=== PATIENT | male | born 1980 | race Caucasian/White ===

== ENCOUNTER 2016-07-21 10:09 | Emergency (ER) | payer OTHER ==
--- NOTE | 2016-07-21 10:30 | ED ---
General Adult HPI - General Chief complaint: Shortness of Breath Stated complaint: Anxiety Time Seen by Provider: 07/21/16 10:10 Source: patient, EMS, RN notes reviewed Mode of arrival: EMS - History of Present Illness Initial comments: This is a 36-year-old male with past medical history of panic attacks. Patient states his been out of his Xanax for the last 2 months. Patient states he has been having a difficult time keeping his anxiety under control lately. Patient states today he anxiety got best of him and he felt like he couldn't breathe so his father took him to the ambulance station and they brought him into the emergency department. Patient states he feels much better now but it felt as though he couldn't get a full breath and he began to panic even more. Patient denied any chest pain or palpitations. Patient denies any recent fever chills or cough. Patient denies any abdominal pain patient denies nausea vomiting diarrhea. Patient denies any headache patient denies numbness weakness per patient denies any lightheadedness dizziness and is bothersome. Patient states this is classic for his typical panic attacks - Related Data Home Medications Medication Instructions Recorded Confirmed ALPRAZolam [Xanax] 1 mg PO BID PRN 11/11/15 12/03/15 Cyclobenzaprine [Flexeril] 10 mg PO HS 11/11/15 12/03/15 oxyCODONE-APAP 10-325MG [Percocet 1 tab PO BID PRN 11/11/15 12/03/15 10-325 mg] Previous Rx's Medication Instructions Recorded Hydrocodone/Acetaminophen [[place] 1 each PO Q6HR PRN #20 tab 12/03/15 5-325] Sulfamethoxazole/Trimethoprim 1 each PO Q12H 14 Days 12/03/15 [Bactrim DS 800-160 mg] ALPRAZolam [Xanax] 0.5 mg PO DAILY PRN #14 07/21/16 Allergies Allergy/AdvReac Type Severity Reaction Status Date / Time No Known Allergies Allergy Verified 07/21/16 10:18 Review of Systems ROS Statement: Those systems with pertinent positive or pertinent negative responses have been documented in the HPI. ROS Other: All systems not noted in ROS Statement are negative. Past Medical History Past Medical History: No Reported History Additional Past Medical History / Comment(s): herniated disc History of Any Multi-Drug Resistant Organisms: MRSA Date of last positivie culture/infection: 12/03/15 MDRO Source:: BACK Additional Past Surgical History / Comment(s): left ankle pins & screws Past Psychological History: Anxiety, Depression Smoking Status: Current every day smoker Past Alcohol Use History: Daily, Occasional Past Drug Use History: Heroin, IV Drug Use General Exam - General Exam Comments Initial Comments: GENERAL: Patient is well-developed and well-nourished. Patient is nontoxic and well- hydrated and is in mild distress. ENT: Neck is soft and supple. No significant lymphadenopathy is noted. Oropharynx is clear. Moist mucous membranes. Neck has full range of motion without eliciting any pain. EYES: The sclera were anicteric and conjunctiva were pink and moist. Extraocular movements were intact and pupils were equal round and reactive to light. Eyelids were unremarkable. PULMONARY: Unlabored respirations. Good breath sounds bilaterally. No audible rales rhonchi or wheezing was noted. CARDIOVASCULAR: There is a regular rate and rhythm without any murmurs gallops or rubs. ABDOMEN: Soft and nontender with normal bowel sounds. SKIN: Skin is clear with no lesions or rashes and otherwise unremarkable. NEUROLOGIC: Patient is alert and oriented x3. Cranial nerves II through XII are grossly intact. Motor and sensory are also intact. Normal speech, volume and content. Symmetrical smile. MUSCULOSKELETAL: Normal extremities with adequate strength and full range of motion. LYMPHATICS: No significant lymphadenopathy is noted PSYCHIATRIC: Normal psychiatric evaluation. Normal interpersonal interactions appears functionally intact in deals appropriately with others. Patient is mildly anxious Course Vital Signs 07/21/16 07/21/16 10:13 10:18 Temperature 96.7 F L Pulse Rate 95 Respiratory 22 22 Rate Blood Pressure 118/68 O2 Sat by Pulse 97 Oximetry Disposition Clinical Impression: Anxiety Disposition: HOME SELF-CARE Condition: Good Instructions: Anxiety (ED) Prescriptions: ALPRAZolam [Xanax] 0.5 mg PO DAILY PRN #14 PRN Reason: Anxiety Referrals: Cm Salcido DO [Primary Care Provider] - 1-2 days Time of Disposition: 10:30
[2016-07-21] MEDS: ALPRAZolam 0.5 MG TAB PO STA (10:47)
[2016-07-21 10:53] VITALS: BP 118/72; PULSE 99; RESP 18; TEMP 96.9
== END 2016-07-21 10:53 | disposition home or self-care (01) ==
LOC: EC 10:09
DX: F41.9 Anxiety disorder, unspecified (principal); F41.0 Panic disorder [episodic paroxysmal anxiety]; R06.02 Shortness of breath; F32.9 Major depressive disorder, single episode, unspecified; F17.200 Nicotine dependence, unspecified, uncomplicated; Z79.899 Other long term (current) drug therapy
CPT/HCPCS: 99285

== ENCOUNTER 2016-08-11 10:15 | Emergency (ER) | payer OTHER ==
[2016-08-11 10:23] VITALS: BP 106/60; PULSE 86; RESP 20; TEMP 97.5
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
== END 2016-08-11 12:02 | disposition home or self-care (01) ==
LOC: EC 10:15
DX: F41.9 Anxiety disorder, unspecified (principal); F17.200 Nicotine dependence, unspecified, uncomplicated
CPT/HCPCS: 99283

== ENCOUNTER 2016-08-22 09:45 | Emergency (ER) | payer OTHER ==
[2016-08-22 09:55] VITALS: TEMP 98.1
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
[2016-08-22 12:04] VITALS: BP 117/63; PULSE 75; RESP 16
== END 2016-08-22 12:10 | disposition home or self-care (01) ==
LOC: EC 09:45
DX: S06.0X0A Concussion without loss of consciousness, initial encounter (principal); F17.200 Nicotine dependence, unspecified, uncomplicated; Y08.89XA Assault by other specified means, initial encounter
CPT/HCPCS: 70450; 72125; 99284

== ENCOUNTER → 2016-10-15 | Outpatient (CLI) | payer OTHER ==
--- NOTE | 2016-10-15 10:16 | MR ---
EXAMINATION TYPE: MR lumbar spine wo con DATE OF EXAM: 10/15/2016 COMPARISON: Prior MRI lumbar spine May 12, 2010 HISTORY: Lumbago per order. Extreme back pain with arthritis impinged nerves since 2006 per patient. TECHNIQUE: Multiplanar, multisequence imaging of the lumbar spine is performed without IV contrast. FINDINGS: Sagittal images of the lumbar spine show vertebral body heights and alignment to appear sat isfactory. There is redemonstration of disc desiccation with mild to moderate disc space narrowing L5 -S1 level. There is developing disc desiccation L3-L4 level. Posterior disc herniations are seen at t hese levels on sagittal images. The conus medullaris remains normal in position and signal ending at T12-L1 disc space. The bone marrow signal intensity shows heterogeneous increased T1 and T2 signal involving left L5-S1 vertebra consistent with Modic type II degenerative change new from prior study. Axial images show the T12-L1, L1-L2, and L2-L3 levels all to appear within normal limits. Axial images at the L3-L4 level shows central disc protrusion mildly effacing anterior thecal sac on axial image 18 more prominent or new from prior study. Bilateral neural foramina are patent. Axial images at L4-L5 level show mild facet degenerative changes bilaterally more prominent or new fr om prior exam. Spinal canal is preserved and bilateral neural foramina remain patent. Axial images at L5-S1 level shows central disc protrusion but spinal canal is preserved. Bilateral mi ld anterior inferior neural foraminal narrowing is redemonstrated. IMPRESSION: Multilevel degenerative changes in the mid to lower lumbar spine as detailed above with s ome progression from 2010 study noted.
== END | disposition home or self-care (01) ==
LOC: RADMRIMAIN 09:27
PROVIDERS: ATTEND Psychiatry & Neurology Pain Medicine
DX: M47.816 Spondylosis without myelopathy or radiculopathy, lumbar region (principal)
CPT/HCPCS: 72148

== ENCOUNTER 2016-12-04 18:40 | Inpatient (IN) | payer OTHER ==
[2016-12-04] MEDS ORDERED: PROPOFOL 1,000 MG/100 ML VIAL IV ONE (19:20)
[2016-12-04 19:31] LABS: Glucose,Whole Blood 88 mg/dL (75-99)
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
[2016-12-04] MEDS ORDERED: NALOXONE 0.4 MG/ML 1 ML VIAL IV STA ×2 (19:42→19:46)
[2016-12-04] MEDS ORDERED: SODIUM CHLORIDE 0.9% 1,000 ML IV STA (19:42)
[2016-12-04] MEDS ORDERED: SUCCINYLCHOLINE CHLORIDE VIAL 200 MG/10 ML VIAL IV STA (19:43)
[2016-12-04] MEDS ORDERED: ETOMIDATE 2 MG/ML 10 ML VIAL IVP STA (19:46)
[2016-12-04 20:07] LABS: Basophils # (A) 0.1 k/uL (0-0.2); Basophils % (A) 1 %; CH 31.3; CHCM 32.6; Eosinophils # (A) 0.2 k/uL (0-0.7); Eosinophils % (A) 2 %; HCT 43.4 % (39.0-53.0); HDW 2.55; HGB 14.5 gm/dL (13.0-17.5); Luc # (Auto) 0.29; Luc % (Auto) 4; Lymphocytes # (A) 2.8 k/uL (1.0-4.8); Lymphocytes % (A) 34 %; MCH 32.2 pg (25.0-35.0); MCHC 33.5 g/dL (31.0-37.0); MCV 96.4 fL (80.0-100.0); Mean Platelet Volume 7.2; Monocytes # (A) 0.5 k/uL (0-1.0); Monocytes % (A) 6 %; Neutrophils # (A) 4.5 k/uL (1.3-7.7); Neutrophils % (A) 54 %; RDW 13.4 % (11.5-15.5); WBC 8.3 k/uL (3.8-10.6)
[2016-12-04 20:12] LABS: ALT 40 U/L (21-72); AST 28 U/L (17-59); Acetaminophen <10.0 ug/mL; Alcohol <10 mg/dL; Alkaline Phosphatase 127 U/L (38-126); Anion Gap 11 mmol/L; Blood Urea Nitrogen 5 mg/dL (9-20); Calcium 9.1 mg/dL (8.4-10.2); Carbon Dioxide 21 mmol/L (22-30); Chloride 109 mmol/L (98-107); Glucose 85 mg/dL (74-99); Non-African American GFR(MDRD) >60 (>60 ml/min/1.73 sqM); Salicylate <1.0 mg/dL; Sodium 141 mmol/L (137-145); Total Bilirubin 0.8 mg/dL (0.2-1.3); Total Protein 6.9 g/dL (6.3-8.2)
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
[2016-12-04] MEDS ORDERED: NALOXONE 0.4 MG/ML 1 ML VIAL IV PRN (21:21)
--- NOTE | 2016-12-04 21:36 | ED ---
General Adult HPI - General Chief complaint: Overdose Stated complaint: unconscious in roadway Time Seen by Provider: 12/04/16 19:03 Source: EMS, RN notes reviewed Mode of arrival: EMS Limitations: altered mental status - History of Present Illness Initial comments: 36 yo male with known history of heroin abuse presents by EMS after being found in an alley unresponsive. Patient had minimal respirations on arrival, did receive a total 4 mg Narcan prior to transport. Patient had recent prescription filled for Percocet and benzodiazepine. It is unknown if he ingested these. Unknown total quantity of prescription. Patient was also found with a syringe. Upon arrival patient was given additional 2 mg Narcan followed by 4 mg of Narcan. Patient failed to improve his respiratory status. No other history was able to be obtained from either the patient or EMS. - Related Data Home Medications Medication Instructions Recorded Confirmed oxyCODONE HCL/ACETAMINOPHEN 1 tab PO TID PRN 08/11/16 12/04/16 [Percocet 10-325 mg] ALPRAZolam [Xanax] 1 mg PO BID 12/04/16 12/04/16 Pregabalin [Lyrica] 75 mg PO BID 12/04/16 12/04/16 Allergies Allergy/AdvReac Type Severity Reaction Status Date / Time No Known Allergies Allergy Verified 08/22/16 09:55 Review of Systems ROS Statement: Those systems with pertinent positive or pertinent negative responses have been documented in the HPI. Limitations: ROS unobtainable due to patients medical condition Past Medical History Past Medical History: No Reported History Additional Past Medical History / Comment(s): herniated disc History of Any Multi-Drug Resistant Organisms: MRSA Date of last positivie culture/infection: 12/03/15 MDRO Source:: BACK Additional Past Surgical History / Comment(s): left ankle pins & screws Past Psychological History: Anxiety, Depression Smoking Status: Current every day smoker Past Alcohol Use History: Occasional Past Drug Use History: Heroin, IV Drug Use General Exam - General Exam Comments Initial Comments: Initial examination: Patient was soaking wet, covered in sand and dirt, there was no external signs of trauma on the head or neck. He was placed in a c- collar for cervical precautions. Pupils were 2 mm and sluggish. Minimal spontaneous respirations, patient was assisted with bag valve mask. Bilateral breath sounds present, no rales no wheezing, abdomen was soft nondistended. Distal pulses intact. Limitations: altered mental status General appearance: in distress Head exam: Present: atraumatic, normocephalic Eye exam: Absent: scleral icterus, conjunctival injection Cardiovascular Exam: Present: regular rate, normal rhythm GI/Abdominal exam: Present: soft. Absent: distended Neurological exam: Present: other (Patient did not localize the pain, he withdrew to pain in all 4 extremities.) Course Vital Signs 12/04/16 12/04/16 12/04/16 18:44 19:00 19:39 Temperature 97.1 F L Pulse Rate 79 58 L Respiratory 6 L 10 L Rate Blood Pressure 133/97 137/92 O2 Sat by Pulse 92 L 100 Oximetry 12/04/16 12/04/16 12/04/16 20:04 21:01 21:22 Temperature 97.2 F L Pulse Rate 62 70 63 Respiratory Rate Blood Pressure 122/88 111/55 106/72 O2 Sat by Pulse Oximetry EKG Findings - EKG Comments: EKG Findings:: EKG shows normal sinus rhythm, ventricular rate of 61, W[place] interval 164, QS duration 92, QTC 453 Procedures - Intubation Time Out Performed: Yes Sedative: Etomidate Paralytic: Succinylcholine Laryngoscope: Jazmin Size: 4 ET Tube Size: 7.5 ET Tube Uncuffed: Yes Tube Secured Depth (cm): 23 Tube Placement Confirmation: visualized tube passing through cords, equal breath sounds bilaterally, no breath sounds over epigastrium, confirmation by capnometry Patient Tolerated Procedure: well, no complications Intubation Complications: none Medical Decision Making - Medical Decision Making 36 yo male presenting with concern for polysubstance overdose. Patient was given a total 10 mg of Narcan with no improvement in his respiratory status. He was intubated in the emergency department. Laboratory studies including CBC , CMP, Tylenol and aspirin levels as well as urine drug screen are significant only for urine drug screen positive cocaine, opiates, and benzodiazepines. Given the failure to respond to Narcan this is likely opiate and benzodiazepine overdose. Initial Tylenol level is nondetectable. Chest x-ray shows ET tube in appropriate location, head CT and cervical spine CT are negative. X-ray of the pelvis shows no fracture dislocation. Case is discussed with the pulmonary tin tie machine operator automatic. He will be admitted to the ICU. Diagnosis: Vent-dependent respiratory failure secondary to polysubstance overdose. - Lab Data Result diagrams: 12/04/16 19:45 12/04/16 19:45 Lab Results 12/04/16 12/04/16 12/04/16 Range/Units 19:16 19:28 19:45 WBC (3.8-10.6) k/uL RBC (4.30-5.90) m/uL Hgb (13.0-17.5) gm/dL Hct (39.0-53.0) % MCV (80.0-100.0) fL MCH (25.0-35.0) pg MCHC (31.0-37.0) g/dL RDW (11.5-15.5) % Plt Count (150-450) k/uL Neutrophils % % Lymphocytes % % Monocytes % % Eosinophils % % Basophils % % Neutrophils # (1.3-7.7) k/uL Lymphocytes # (1.0-4.8) k/uL Monocytes # (0-1.0) k/uL Eosinophils # (0-0.7) k/uL Basophils # (0-0.2) k/uL Sodium 141 (137-145) mmol/L Potassium 4.0 (3.5-5.1) mmol/L Chloride 109 H (98-107) mmol/L Carbon Dioxide 21 L (22-30) mmol/L Anion Gap 11 mmol/L BUN 5 L (9-20) mg/dL Creatinine 0.80 (0.66-1.25) mg/dL Est GFR (MDRD) Af Amer >60 (>60 ml/min/1.73 sqM) Est GFR (MDRD) Non-Af >60 (>60 ml/min/1.73 sqM) Glucose 85 (74-99) mg/dL POC Glucose (mg/dL) 88 (75-99) mg/dL POC Glu Diversity Manager ID Monse Antonio Plasma Lactic Acid Tim (0.7-2.0) mmol/L Calcium 9.1 (8.4-10.2) mg/dL Total Bilirubin 0.8 (0.2-1.3) mg/dL AST 28 (17-59) U/L ALT 40 (21-72) U/L Alkaline Phosphatase 127 H (38-126) U/L Total Protein 6.9 (6.3-8.2) g/dL Albumin 3.6 (3.5-5.0) g/dL Salicylates <1.0 mg/dL Urine Opiates Screen Detected H (NotDetected) Ur Oxycodone Screen Detected H (NotDetected) Urine Methadone Screen Not Detected (NotDetected) Ur Propoxyphene Screen Not Detected (NotDetected) Acetaminophen <10.0 ug/mL Ur Barbiturates Screen Not Detected (NotDetected) U Tricyclic Antidepress Not Detected (NotDetected) Ur Phencyclidine Scrn Not Detected (NotDetected) Ur Amphetamines Screen Not Detected (NotDetected) U Methamphetamines Scrn Not Detected (NotDetected) U Benzodiazepines Scrn Detected H (NotDetected) Urine Cocaine Screen Detected H (NotDetected) U Marijuana (THC) Screen Not Detected (NotDetected) Serum Alcohol <10 mg/dL 12/04/16 12/04/16 Range/Units 19:45 19:45 WBC 8.3 (3.8-10.6) k/uL RBC 4.50 (4.30-5.90) m/uL Hgb 14.5 (13.0-17.5) gm/dL Hct 43.4 (39.0-53.0) % MCV 96.4 (80.0-100.0) fL MCH 32.2 (25.0-35.0) pg MCHC 33.5 (31.0-37.0) g/dL RDW 13.4 (11.5-15.5) % Plt Count 263 (150-450) k/uL Neutrophils % 54 % Lymphocytes % 34 % Monocytes % 6 % Eosinophils % 2 % Basophils % 1 % Neutrophils # 4.5 (1.3-7.7) k/uL Lymphocytes # 2.8 (1.0-4.8) k/uL Monocytes # 0.5 (0-1.0) k/uL Eosinophils # 0.2 (0-0.7) k/uL Basophils # 0.1 (0-0.2) k/uL Sodium (137-145) mmol/L Potassium (3.5-5.1) mmol/L Chloride (98-107) mmol/L Carbon Dioxide (22-30) mmol/L Anion Gap mmol/L BUN (9-20) mg/dL Creatinine (0.66-1.25) mg/dL Est GFR (MDRD) Af Amer (>60 ml/min/1.73 sqM) Est GFR (MDRD) Non-Af (>60 ml/min/1.73 sqM) Glucose (74-99) mg/dL POC Glucose (mg/dL) (75-99) mg/dL POC Glu Diversity Manager ID Plasma Lactic Acid Tim 0.7 (0.7-2.0) mmol/L Calcium (8.4-10.2) mg/dL Total Bilirubin (0.2-1.3) mg/dL AST (17-59) U/L ALT (21-72) U/L Alkaline Phosphatase (38-126) U/L Total Protein (6.3-8.2) g/dL Albumin (3.5-5.0) g/dL Salicylates mg/dL Urine Opiates Screen (NotDetected) Ur Oxycodone Screen (NotDetected) Urine Methadone Screen (NotDetected) Ur Propoxyphene Screen (NotDetected) Acetaminophen ug/mL Ur Barbiturates Screen (NotDetected) U Tricyclic Antidepress (NotDetected) Ur Phencyclidine Scrn (NotDetected) Ur Amphetamines Screen (NotDetected) U Methamphetamines Scrn (NotDetected) U Benzodiazepines Scrn (NotDetected) Urine Cocaine Screen (NotDetected) U Marijuana (THC) Screen (NotDetected) Serum Alcohol mg/dL Critical Care Time Total Critical Care Time: 105 Disposition Clinical Impression: Benzodiazepine overdose, Heroin overdose, Respiratory failure Disposition: ADMITTED IP TO THIS [facility] Condition: Serious Referrals: None,Stated [Primary Care Provider] - 1-2 days Decision to Admit Reason: Admit from EC Decision Date: 12/04/16 Decision Time: 21:00
[2016-12-04 21:53] LABS: ABG Base Excess -2.6 mmol/L; ABG HCO3 20 mmol/L (21-25); ABG PCO2 28 mmHg (35-45); ABG PH 7.48 (7.35-7.45); ABG PO2 150 mmHg (83-108); ABG TCO2 21 mmol/L (19-24)
[2016-12-04 22:32] LABS: Glucose,Whole Blood 89 mg/dL (75-99)
[2016-12-05] MEDS: PROPOFOL 1,000 MG/100 ML VIAL IV SCH ×3 (00:40→09:48)
[2016-12-05] MEDS ORDERED: RX INFO: IV CONTRAST WAS GIVEN 1 EACH MISC MISCELLANE PRN (02:05)
[2016-12-05 02:08] LABS: Glucose,Whole Blood 69 mg/dL (75-99)
[2016-12-05 02:22] LABS: Glucose,Whole Blood 60 mg/dL (75-99)
[2016-12-05] MEDS ORDERED: DEXTROSE 10 % IN WATER 250 ML IV STA (02:22)
[2016-12-05] MEDS: DEXTROSE 5% IN WATER 1,000 ML IV SCH ×2 (02:25→08:23)
[2016-12-05 03:04] LABS: Glucose,Whole Blood 127 mg/dL (75-99)
--- NOTE | 2016-12-05 04:04 | CT ---
EXAM: CT Head Without and With Intravenous Contrast CLINICAL HISTORY: Reason: tremors, and pupil changes TECHNIQUE: Axial computed tomography images of the head/brain without and with intravenous contrast. CTDI is 57.40 mGy and DLP is 1219.40 mGy-cm. This CT exam was performed using one or more of the following dose reduction techniques: automated exposure control, adjustment of the mA and/or kV according to patient size, and/or use of iterative reconstruction technique. COMPARISON: No relevant prior studies available. FINDINGS: Brain: Unremarkable. No hemorrhage. No significant white matter disease. No edema. Normal enhancement. Ventricles: Unremarkable. No ventriculomegaly. Bones/joints: Unremarkable. No acute fracture. Soft tissues: Unremarkable. Sinuses/mastoids: Scattered paranasal sinus because of thickening. Mucous retention cyst in the left maxillary sinus. No air-fluid levels. Mastoid air cells are clear. Fluid in the nasopharynx. IMPRESSION: No acute intracranial pathology. No findings to explain the clinical presentation. Chronic paranasal sinus disease.
[2016-12-05 04:22] LABS: Glucose,Whole Blood 122 mg/dL (75-99)
[2016-12-05 05:38] LABS: ABG HCO3 27 mmol/L (21-25); ABG PCO2 38 mmHg (35-45); ABG PH 7.46 (7.35-7.45); ABG PO2 158 mmHg (83-108)
[2016-12-05 05:39] LABS: ABG Base Excess 3.2 mmol/L; ABG Oxygen Saturation 99.5 % (94-97); ABG TCO2 28 mmol/L (19-24)
[2016-12-05 05:50] LABS: Appearance,Urine Clear (Clear); Bilirubin,Urine Negative (Negative); Glucose,Urine (UA) Negative (Negative); Ketones,Urine Negative (Negative); Leukocyte Esterase,Urine Negative (Negative); Mucus,Urine Rare /hpf; Nitrite,Urine Negative (Negative); Particle Count 1202; Protein,Urine 1+ (Negative); RBC,Urine 3 /hpf (0-5); UA Billing (MACRO vs. MICRO) MICRO; Uric Acid Crystals,Urine Few /hpf; WBC,Urine 4 /hpf (0-5)
[2016-12-05 05:57] LABS: Specific Gravity,Urine >1.050 (1.001-1.035)
[2016-12-05 05:58] LABS: Basophils % (A) 0 %; CH 30.7; Eosinophils # (A) 0.1 k/uL (0-0.7); Eosinophils % (A) 1 %; HCT 44.8 % (39.0-53.0); HDW 2.58; Luc # (Auto) 0.15; Luc % (Auto) 1; Lymphocytes # (A) 1.5 k/uL (1.0-4.8); Lymphocytes % (A) 10 %; MCH 31.4 pg (25.0-35.0); MCHC 33.6 g/dL (31.0-37.0); MCV 93.3 fL (80.0-100.0); Mean Platelet Volume 6.8; Monocytes # (A) 0.7 k/uL (0-1.0); Monocytes % (A) 5 %; Neutrophils % (A) 83 %; RDW 12.7 % (11.5-15.5); WBC 14.5 k/uL (3.8-10.6); WBC (Perox) 14.37
[2016-12-05 06:16] LABS: ALT 37 U/L (21-72); AST 31 U/L (17-59); Alkaline Phosphatase 123 U/L (38-126); Anion Gap 9 mmol/L; Blood Urea Nitrogen 5 mg/dL (9-20); Carbon Dioxide 29 mmol/L (22-30); Chloride 104 mmol/L (98-107); Creatine Kinase 157 U/L (55-170); Glucose 109 mg/dL (74-99); Magnesium 2.5 mg/dL (1.6-2.3); Non-African American GFR(MDRD) >60 (>60 ml/min/1.73 sqM); Phosphorous 2.9 mg/dL (2.5-4.5); Potassium 3.8 mmol/L (3.5-5.1); Sodium 142 mmol/L (137-145); Total Bilirubin 0.6 mg/dL (0.2-1.3); Total Protein 6.8 g/dL (6.3-8.2)
[2016-12-05] MEDS ORDERED: Potassium Replacement Protocol 1 EACH MISC MISCELLANE PRN (06:52)
[2016-12-05] MEDS ORDERED: POTASSIUM CHLORIDE ORAL LIQUID 40 MEQ/30 ML CUP NG-TUBE SCH (06:55)
[2016-12-05] MEDS: PIPERACILLIN-TAZOBACTAM 3.375 GM in DEXTROSE/WATER 1 50ML.BAG IVPB SCH ×2 (07:48→19:00)
--- NOTE | 2016-12-05 08:16 | XR ---
EXAMINATION TYPE: XR chest 1V DATE OF EXAM: 12/05/2016 COMPARISON: 12/04/2016 HISTORY: Chest pain TECHNIQUE: Single frontal view of the chest is obtained. FINDINGS: Endotracheal tube is unchanged in position. NG tube is seen coursing into the stomach. There is incre asing infiltrate right lower lobe with associated pleural effusion. Mild atelectasis left medial lung base. IMPRESSION: 1. Increasing infiltrate right lower lobe with pleural effusion.
[2016-12-05 08:17] LABS: Glucose,Whole Blood 69 mg/dL (75-99)
[2016-12-05 09:10] LABS: Glucose,Whole Blood 90 mg/dL (75-99)
[2016-12-05] MEDS: CHLORHEXIDINE GLUCONATE 15 ML CUP MUCOUS MEM SCH ×2 (09:13→20:25)
[2016-12-05] MEDS: HEPARIN SODIUM,PORCINE 5,000 UNIT/ML 1 ML VIAL SQ SCH ×2 (09:13→20:56)
[2016-12-05] MEDS: ESOMEPRAZOLE 20 MG in SODIUM CHLORIDE 0.9% 50 ML IVPB SCH (10:51)
--- NOTE | 2016-12-05 11:54 | P.CNPUL ---
History of Present Illness Consult date: 12/05/16 Chief complaint: Acute drug overdose, acute respiratory failure History of present illness: There is 6-year-old male patient who presented yesterday to the emergency department unresponsive. Apparently the patient was found on the street with a needle in his arm. He has known history of polysubstance abuse. Based on the history was available to us, the patient was taking Percocet, benzodiazepine and heroin. His urine drug screen is positive for opiates, benzodiazepines, cocaine and oxycodone. Serum alcohol was negative. Still acetaminophen and salicylates were also negative. The patient was quite obtunded upon arrival to the emergency department. His aspirate was around 6 times per minute. He was given a few dose of Narcan without any improvement and subsequently was intubated and placed on mechanical ventilator. Intubation was not to secure his airway. Adequate oxygenation and ventilation was achieved following intubation and his subsequent blood gases showed a pH of 7.48 with a pCO2 of 28 and pO2 150. This was done and FiO2 of 100%. This morning his blood gases show a pH of 7.46 with a pCO2 of 38 and pO2 158 on a 70% FiO2. Currently on an assist-control mode at the rate of 18, tidal volume of 480, FiO2 of 70% and a PEEP of 5. Chest x-rays from today shows development of a right-sided pleural effusion and infiltrate most likely secondary to an underlying aspiration pneumonia. He was started on IV Zosyn last night. In addition, overnight the patient was noted to have some tremors and possible seizures. At one point his pupils were also noted to be asymmetrical. The right pupil was around 4 mm. The left was around 3. Based on that he was taken for a stat CAT scan of the brain which turned out to be negative. Neurologic consultation has been also obtained. He is currently on Diprivan at 50 mics. No further jerking body movements was noted since. Afebrile. Hemodynamically stable. On no pressors. Review of Systems ROS unobtainable: due to endotracheal tube Past Medical History Past Medical History: No Reported History Additional Past Medical History / Comment(s): herniated disc, polysubstance abuse including IVDA. History of Any Multi-Drug Resistant Organisms: MRSA Date of last positivie culture/infection: 12/03/15 MDRO Source:: BACK Past Surgical History: No Surgical Hx Reported Additional Past Surgical History / Comment(s): left ankle pins & screws Past Psychological History: Anxiety, Depression Smoking Status: Current every day smoker Past Alcohol Use History: Occasional Past Drug Use History: Heroin, IV Drug Use Medications and Allergies Home Medications Medication Instructions Recorded Confirmed Type oxyCODONE HCL/ACETAMINOPHEN 1 tab PO TID PRN 08/11/16 12/04/16 History [Percocet 10-325 mg] ALPRAZolam [Xanax] 1 mg PO BID 12/04/16 12/04/16 History Pregabalin [Lyrica] 75 mg PO BID 12/04/16 12/04/16 History Allergies Allergy/AdvReac Type Severity Reaction Status Date / Time No Known Allergies Allergy Verified 08/22/16 09:55 Physical Exam Vitals: Vital Signs Temp Pulse Resp BP BP Pulse Ox 12/05/16 11:00 37.4 F L 84 20 119/79 100 12/05/16 10:50 84 21 114/69 100 12/05/16 10:40 78 18 114/69 100 12/05/16 10:30 76 19 115/72 100 12/05/16 10:20 76 18 115/72 100 12/05/16 10:10 73 18 108/67 100 12/05/16 10:00 81 18 108/67 100 12/05/16 09:50 82 18 110/65 100 12/05/16 09:40 37.3 F L 82 18 110/65 12/05/16 09:30 85 18 115/76 100 12/05/16 09:20 78 32 H 115/76 100 12/05/16 09:10 84 17 114/66 100 12/05/16 09:00 87 18 114/66 12/05/16 08:50 87 18 119/68 100 12/05/16 08:40 82 18 119/68 100 12/05/16 08:30 88 24 135/78 100 12/05/16 08:20 90 30 H 135/78 100 12/05/16 08:10 89 26 H 116/88 12/05/16 08:00 84 25 H 116/88 100 12/05/16 07:50 87 24 124/80 100 12/05/16 07:40 37.6 F L 81 22 124/80 12/05/16 07:30 84 26 H 121/71 100 07 07:20 83 24 121/71 100 07/17 07:10 79 19 123/73 100 0717 07:00 79 19 123/73 100 0717 06:50 84 21 110/62 100 0717 06:40 83 18 110/62 100 0717 06:30 86 19 111/61 100 0717 06:20 82 18 111/61 100 0717 06:10 83 19 112/63 100 07 06:00 79 19 112/63 100 07 05:50 78 19 113/67 100 07 05:40 78 19 113/67 100 07 05:30 80 20 114/69 100 07 05:20 79 19 114/69 100 07 05:10 80 20 112/73 100 07 05:00 81 21 112/73 100 07 04:50 79 20 114/72 100 12/05/16 04:40 76 19 114/72 100 17 04:30 78 20 117/79 100 07 04:20 79 20 117/79 95 12/05/16 04:10 82 19 119/74 95 12/05/16 04:00 98.8 F 83 18 119/74 100 0717 03:50 84 13 119/74 100 12/05/16 03:40 76 19 119/74 100 0717 03:30 75 19 119/74 100 0717 03:20 75 18 119/74 100 17 03:17 73 16 105/80 100 0717 02:40 105/80 0717 02:30 105/80 0717 02:20 84 15 105/80 98 0717 02:10 81 13 116/89 100 07 02:00 80 18 116/89 100 0717 01:50 73 18 109/83 100 0717 01:40 69 18 106/76 100 07//17 01:30 67 18 106/76 100 0717 01:20 66 17 104/75 100 12/05/16 01:10 65 17 107/75 100 12/05/16 01:00 98.1 F 63 18 107/75 123/73 99 12/05/16 00:50 64 18 110/81 100 12/05/16 00:40 62 18 124/91 100 12/05/16 00:30 70 20 124/91 100 12/05/16 00:20 70 18 114/92 100 12/05/16 00:10 71 18 109/84 100 12/05/16 00:00 67 18 109/84 100 12/04/16 23:50 67 17 112/80 100 12/04/16 23:40 64 17 110/76 100 12/04/16 23:30 66 17 110/76 100 12/04/16 23:20 65 17 103/75 100 12/04/16 23:10 66 18 104/76 100 12/04/16 23:00 68 17 104/76 100 12/04/16 22:50 62 18 103/78 100 12/04/16 22:40 64 18 105/67 100 12/04/16 22:38 97.5 F L 70 104/64 100 12/04/16 22:30 87 18 105/67 100 12/04/16 22:27 57 L 18 105/67 100 12/04/16 21:22 63 106/72 12/04/16 21:01 97.2 F L 70 111/55 12/04/16 20:04 62 122/88 12/04/16 19:39 58 L 137/92 100 12/04/16 19:00 10 L 12/04/16 18:44 97.1 F L 79 6 L 133/97 92 L Intake and Output 12/04/16 12/05/16 12/05/16 22:59 06:59 14:59 Intake Total 12.24 1225 916.807 Output Total 270 185 Balance 12.24 955 731.807 Intake: IV 875 785 Dextrose 5% in Water 1, 75 375 000 ml @ 75 mls/hr IV . [id number] COUNT INCLUDES THE [facility] Rx#:[id number] Sodium Chloride 0.9% 1, 800 410 000 ml @ 100 mls/hr IV . Q10H STA Rx#:[id number] Intake, IV Titration 12.24 350 131.807 Amount Dextrose 10 % in Water 250 250 ml @ 999 mls/hr IV ONCE STA Rx#:[id number] Esomeprazole 20 mg In 50 Sodium Chloride 0.9% 50 ml @ 100 mls/hr IVPB DAILY COUNT INCLUDES THE [facility] Rx#:[id number] Piperacillin-Tazobactam 3 37.5 .375 gm In Dextrose/Water 1 50ml.bag @ 12.5 mls/hr IVPB Q8HR COUNT INCLUDES THE [facility] Rx#: [id number] Propofol 1,000 mg In 100 12.24 ml @ Titrate IV .Q0M ONE Rx#:[id number] Propofol 1,000 mg In 100 100 44.307 ml @ Titrate IV .Q0M COUNT INCLUDES THE [facility] Rx#:[id number] Output: Urine 270 185 Other: Voiding Method Indwelling Catheter Indwelling Catheter Weight 99.79 kg 102.3 kg 103.5 kg Patient Weight 12/06/16 06:59 Weight 103.5 kg Patient is sedated, intubated on a mechanical ventilator. The patient has an orogastric and orotracheal tube are both in place.Head exam was generally normal. There was no scleral icterus or corneal arcus. Mucous membranes were moist. Pupils are equal and symmetric and they're reactive to light. No neck stiffness.Neck was supple and without jugular venous distension, thyromegaly, or carotid bruits. Carotids were easily palpable bilaterally. There was no adenopathy.Lungs were clear to auscultation and percussion, and with normal diaphragmatic excursion. No wheezes or rales were noted. Cardiac exam revealed the PMI to be normally situated and sized. The rhythm was regular and no extrasystoles were noted during several minutes of auscultation. The first and second heart sounds were normal and physiologic splitting of the second heart sound was noted. There were no murmurs, rubs, clicks, or gallops.Abdominal exam revealed normal bowel sounds. The abdomen was soft, non-tender, and without masses, organomegaly, or appreciable enlargement of the abdominal aorta. Examination of the extremities revealed easily palpable radial, femoral and pedal pulses. There was no cyanosis, clubbing or edema. Patient has track frank in both wrists. Neurologically he sedated however he is arousable and is moving extremities to painful stimulation. Results - Laboratory Findings CBC and BMP: 12/05/16 05:22 12/05/16 05:22 ABG ABG pH 7.46 (7.35-7.45) H 12/05/16 05:18 ABG pCO2 38 mmHg (35-45) 12/05/16 05:18 ABG pO2 158 mmHg (83-108) H 12/05/16 05:18 ABG O2 Saturation 99.5 % (94-97) H 12/05/16 05:18 Abnormal lab findings: Abnormal Labs 12/04/16 12/04/16 12/04/16 19:16 19:34 19:45 WBC Neutrophils # ABG pH 7.48 H ABG pCO2 28 L ABG pO2 150 H ABG HCO3 20 L ABG Total CO2 ABG O2 Saturation 100.0 H Chloride 109 H Carbon Dioxide 21 L BUN 5 L Glucose POC Glucose (mg/dL) Magnesium Alkaline Phosphatase 127 H Ur Specific [place] Urine Protein Uric Acid Crystals Urine Mucus Urine Opiates Screen Detected H Ur Oxycodone Screen Detected H U Benzodiazepines Scrn Detected H Urine Cocaine Screen Detected H 12/05/16 12/05/16 12/05/16 02:05 02:20 02:43 WBC Neutrophils # ABG pH ABG pCO2 ABG pO2 ABG HCO3 ABG Total CO2 ABG O2 Saturation Chloride Carbon Dioxide BUN Glucose POC Glucose (mg/dL) 69 L 60 L 127 H Magnesium Alkaline Phosphatase Ur Specific [place] Urine Protein Uric Acid Crystals Urine Mucus Urine Opiates Screen Ur Oxycodone Screen U Benzodiazepines Scrn Urine Cocaine Screen 12/05/16 12/05/16 12/05/16 04:19 05:18 05:22 WBC 14.5 H Neutrophils # 12.0 H ABG pH 7.46 H ABG pCO2 ABG pO2 158 H ABG HCO3 27 H ABG Total CO2 28 H ABG O2 Saturation 99.5 H Chloride Carbon Dioxide BUN Glucose POC Glucose (mg/dL) 122 H Magnesium Alkaline Phosphatase Ur Specific [place] Urine Protein Uric Acid Crystals Urine Mucus Urine Opiates Screen Ur Oxycodone Screen U Benzodiazepines Scrn Urine Cocaine Screen 12/05/16 12/05/16 12/05/16 05:22 05:30 08:15 WBC Neutrophils # ABG pH ABG pCO2 ABG pO2 ABG HCO3 ABG Total CO2 ABG O2 Saturation Chloride Carbon Dioxide BUN 5 L Glucose 109 H POC Glucose (mg/dL) 69 L Magnesium 2.5 H Alkaline Phosphatase Ur Specific [place] >1.050 H Urine Protein 1+ H Uric Acid Crystals Few H Urine Mucus Rare H Urine Opiates Screen Ur Oxycodone Screen U Benzodiazepines Scrn Urine Cocaine Screen - Diagnostic Findings Chest x-ray: image reviewed Assessment and Plan Plan: Assessment 1 acute drug overdose, suspect acute heroin overdose/narcotic medication overdose, as the patient was obtunded and hypoventilating at a time of arrival. The patient failed to respond to Narcan and the patient had to be intubated and placed on a mechanical ventilator. 2 Right lower lobe pneumonia/effusion. Likely consistent with aspiration pneumonia 3 polysubstance abuse including oxycodone, benzodiazepine, heroin and cocaine 4 questionable seizures, probably later to underlying hypoglycemia. Patient is currently on D5 water and blood sugars of within normal range. CAT scan of the brain was negative and the patient is in the process of given a sedation holiday. Neurology is also on consult. Plan Change IV fluids to D5 normal saline at the rate of 100 mL an hour. Stop sedation and assess the patient's mental status and give the patient is sedation holiday. The FiO2 has been drop down to 40%. If stable, and if the weaning parameters are appropriate, we'll proceed with further weaning and possible extubation this afternoon. He is hemodynamically stable at this point. Neurology will be evaluated this patient a later stage. EEG to follow. IV Nexium for GI prophylaxis. Subcu heparin for DVT prophylaxis. He Zosyn for aspiration pneumonia. We'll continue to follow.
[2016-12-05 12:11] LABS: Glucose,Whole Blood 70 mg/dL (75-99)
[2016-12-05] MEDS: oxyCODONE-APAP 10-325MG 1 EACH TAB PO PRN ×2 (15:49→20:23)
[2016-12-05] MEDS: CYCLOBENZAPRINE 10 MG TAB PO PRN ×2 (15:58→20:56)
--- NOTE | 2016-12-05 16:46 | P.CNNES ---
History of Present Illness Consult date: 12/05/16 Reason for Consult: Patient with polysubstance drug overdose and obtundation in the ICU. History of Present Illness: This patient is a 36-year-old right-handed white male who has a history of drug abuse in the past. Apparently he has a known history of heroin abuse in the past. She was found unresponsive in an alley and EMS was called to the scene. Patient remained obtunded and unresponsive and apparently was showing signs of minimal respirations when EMS arrived. He did receive 4 mg of Narcan prior to transport. He apparently had prescriptions by his pain specialists filled for Percocet and benzodiazepines. It is unclear whether he may have overdosed on these meds. Patient was transported by EMS to the emergency room at [facility]. He was intubated and transferred to the intensive care unit. In the ER he was seen by Dr. Ramires who evaluated him. He required another dose of Narcan. He was then transported to the intensive care unit early this morning. The patient is now evaluated in the ICU and was extubated earlier today. He is now doing somewhat better and is able to answer simple questions. Apparently he has a history of drug abuse and follows with the pain specialist on a regular basis. He denies any previous history of drug overdose. He is following simple commands. He was sent for a computed tomography scan of the brain which was reported negative. CT of the cervical spine also was reported negative. The patient is following simple commands. He denies any headache or focal weakness. Neurology is now been consulted for further evaluation and recommendations. Review of Systems Constitutional: Denies chills, Denies fever Eyes: denies blurred vision, denies pain Ears, nose, mouth and throat: Denies headache, Denies sore throat Cardiovascular: Denies chest pain, Denies shortness of breath Respiratory: Denies cough Gastrointestinal: Denies abdominal pain, Denies diarrhea, Denies nausea, Denies vomiting Musculoskeletal: Denies myalgias Integumentary: Reports as per HPI, Denies pruritus, Denies rash Neurological: Reports as per HPI, Reports change in mentation, Reports confusion , Reports memory loss, Denies numbness, Denies weakness Psychiatric: Denies anxiety, Denies depression Endocrine: Denies fatigue, Denies weight change Past Medical History Past Medical History: No Reported History Additional Past Medical History / Comment(s): herniated disc History of Any Multi-Drug Resistant Organisms: MRSA Date of last positivie culture/infection: 12/03/15 MDRO Source:: BACK Additional Past Surgical History / Comment(s): left ankle pins & screws Past Psychological History: Anxiety, Depression Smoking Status: Current every day smoker Past Alcohol Use History: Occasional Past Drug Use History: Heroin, IV Drug Use Medications and Allergies Home Medications Medication Instructions Recorded Confirmed Type oxyCODONE HCL/ACETAMINOPHEN 1 tab PO TID PRN 08/11/16 12/04/16 History [Percocet 10-325 mg] ALPRAZolam [Xanax] 1 mg PO BID 12/04/16 12/04/16 History Pregabalin [Lyrica] 75 mg PO BID 12/04/16 12/04/16 History Allergies Allergy/AdvReac Type Severity Reaction Status Date / Time No Known Allergies Allergy Verified 08/22/16 09:55 Physical Examination - Vital Signs Vital Signs: Vital Signs Temp Pulse Resp BP BP Pulse Ox 12/05/16 11:00 37.4 F L 84 20 119/79 100 12/05/16 10:50 84 21 114/69 12/05/16 10:40 78 18 114/69 12/05/16 10:30 76 19 115/72 100 12/05/16 10:20 76 18 115/72 12/05/16 10:10 73 18 108/67 12/05/16 10:00 81 18 108/67 12/05/16 09:50 82 18 110/65 12/05/16 09:40 37.3 F L 82 18 110/65 12/05/16 09:30 85 18 115/76 12/05/16 09:20 78 32 H 115/76 12/05/16 09:10 84 17 114/66 12/05/16 09:00 87 18 114/66 100 12/05/16 08:50 87 18 119/68 12/05/16 08:40 82 18 119/68 12/05/16 08:30 88 24 135/78 12/05/16 08:20 90 30 H 135/78 12/05/16 08:10 89 26 H 116/88 12/05/16 08:00 84 25 H 116/88 12/05/16 07:50 87 24 124/80 100 12/05/16 07:40 37.6 F L 81 22 124/80 100 12/05/16 07:30 84 26 H 121/71 100 12/05/16 07:20 83 24 121/71 100 12/05/16 07:10 79 19 123/73 100 12/05/16 07:00 79 19 123/73 100 12/05/16 06:50 84 21 110/62 100 12/05/16 06:40 83 18 110/62 100 12/05/16 06:30 86 19 111/61 100 12/05/16 06:20 82 18 111/61 100 12/05/16 06:10 83 19 112/63 100 12/05/16 06:00 79 19 112/63 100 12/05/16 05:50 78 19 113/67 100 12/05/16 05:40 78 19 113/67 100 12/05/16 05:30 80 20 114/69 100 12/05/16 05:20 79 19 114/69 100 12/05/16 05:10 80 20 112/73 100 12/05/16 05:00 81 21 112/73 100 12/05/16 04:50 79 20 114/72 100 12/05/16 04:40 76 19 114/72 100 12/05/16 04:30 78 20 117/79 100 12/05/16 04:20 79 20 117/79 95 12/05/16 04:10 82 19 119/74 95 12/05/16 04:00 98.8 F 83 18 119/74 100 12/05/16 03:50 84 13 119/74 100 12/05/16 03:40 76 19 119/74 100 12/05/16 03:30 75 19 119/74 100 12/05/16 03:20 75 18 119/74 100 12/05/16 03:17 73 16 105/80 100 07 02:40 105/80 07 02:30 105/80 07 02:20 84 15 105/80 98 12/05/16 02:10 81 13 116/89 100 12/05/16 02:00 80 18 116/89 100 12/05/16 01:50 73 18 109/83 100 12/05/16 01:40 69 18 106/76 100 07/23/17 01:30 67 18 106/76 100 12/05/16 01:20 66 17 104/75 100 12/05/16 01:10 65 17 107/75 100 12/05/16 01:00 98.1 F 63 18 107/75 123/73 99 12/05/16 00:50 64 18 110/81 100 12/05/16 00:40 62 18 124/91 100 12/05/16 00:30 70 20 124/91 100 12/05/16 00:20 70 18 114/92 100 12/05/16 00:10 71 18 109/84 100 12/05/16 00:00 67 18 109/84 100 12/04/16 23:50 67 17 112/80 100 12/04/16 23:40 64 17 110/76 100 12/04/16 23:30 66 17 110/76 100 12/04/16 23:20 65 17 103/75 100 12/04/16 23:10 66 18 104/76 100 12/04/16 23:00 68 17 104/76 100 12/04/16 22:50 62 18 103/78 100 12/04/16 22:40 64 18 105/67 100 12/04/16 22:38 97.5 F L 70 104/64 100 12/04/16 22:30 87 18 105/67 100 12/04/16 22:27 57 L 18 105/67 100 12/04/16 21:22 63 106/72 12/04/16 21:01 97.2 F L 70 111/55 12/04/16 20:04 62 122/88 12/04/16 19:39 58 L 137/92 100 12/04/16 19:00 10 L 12/04/16 18:44 97.1 F L 79 6 L 133/97 92 L Intake and Output 12/04/16 12/05/16 12/05/16 22:59 06:59 14:59 Intake Total 12.24 1225 916.807 Output Total 270 185 Balance 12.24 955 731.807 Intake: IV 875 785 Dextrose 5% in Water 1, 75 375 000 ml @ 75 mls/hr IV . [id number] [facility] Rx#:[id number] Sodium Chloride 0.9% 1, 800 410 000 ml @ 100 mls/hr IV . Q10H [facility] Rx#:[id number] Intake, IV Titration 12.24 350 131.807 Amount Dextrose 10 % in Water 250 250 ml @ 999 mls/hr IV ONCE [facility] Rx#:[id number] Esomeprazole 20 mg In 50 Sodium Chloride 0.9% 50 ml @ 100 mls/hr IVPB DAILY [facility] Rx#:[id number] Piperacillin-Tazobactam 3 37.5 .375 gm In Dextrose/Water 1 50ml.bag @ 12.5 mls/hr IVPB Q8HR [facility] Rx#: [id number] Propofol 1,000 mg In 100 12.24 ml @ Titrate IV .Q0M [facility] Rx#:[id number] Propofol 1,000 mg In 100 100 44.307 ml @ Titrate IV .Q0M [facility] Rx#:[id number] Output: Urine 270 185 Other: Voiding Method Indwelling Catheter Indwelling Catheter Weight 99.79 kg 102.3 kg 103.5 kg Patient Weight 12/06/16 06:59 Weight 103.5 kg - Constitutional General appearance: average body habitus, cooperative - EENT EENT: PERRL, mucous membranes moist - Respiratory Respiratory: lungs clear, normal breath sounds - Cardiovascular Cardiovascular: regular rate, normal S1, normal S2 Extremities: no peripheral edema bilaterally - Gastrointestinal Gastrointestinal: normoactive bowel sounds - Integumentary Integumentary: normal - Neurologic Cranial nerve examination: PERRL, EOMI, VFF, V1/V2/V3 grossly intact, face symmetric, tongue midline, intact gag reflex, intact corneal reflex, normal palatal elevation Speech examination: intact Sensorimotor examination: intact Detailed motor examination: grossly full strength in all extremities Motor examination - right side: 4/5: biceps, triceps, wrist flexion, wrist extension, weekend receptionist, hip flexors, knee extensors, dorsiflexion, toe extension (EHL) , plantarflexion Motor examination - left side: 4/5: biceps, triceps, wrist flexion, wrist extension, weekend receptionist, hip flexors, knee extensors, dorsiflexion, toe extension (EHL) , plantarflexion Detailed sensory examination: intact Reflex and gait examination: intact Reflexes: 1+: ankle, bicep, knee, tricep - Musculoskeletal Musculoskeletal: no pain - Psychiatric Psychiatric: mood/affect appropriate, cooperative Results - Laboratory Findings CBC and BMP: 07/23/17 05:22 12/05/16 05:22 Abnormal Lab Findings: Abnormal Labs 12/04/16 12/04/16 12/04/16 19:16 19:34 19:45 WBC Neutrophils # ABG pH 7.48 H ABG pCO2 28 L ABG pO2 150 H ABG HCO3 20 L ABG Total CO2 ABG O2 Saturation 100.0 H Chloride 109 H Carbon Dioxide 21 L BUN 5 L Glucose POC Glucose (mg/dL) Magnesium Alkaline Phosphatase 127 H Ur Specific [place] Urine Protein Uric Acid Crystals Urine Mucus Urine Opiates Screen Detected H Ur Oxycodone Screen Detected H U Benzodiazepines Scrn Detected H Urine Cocaine Screen Detected H 12/05/16 12/05/16 12/05/16 02:05 02:20 02:43 WBC Neutrophils # ABG pH ABG pCO2 ABG pO2 ABG HCO3 ABG Total CO2 ABG O2 Saturation Chloride Carbon Dioxide BUN Glucose POC Glucose (mg/dL) 69 L 60 L 127 H Magnesium Alkaline Phosphatase Ur Specific [place] Urine Protein Uric Acid Crystals Urine Mucus Urine Opiates Screen Ur Oxycodone Screen U Benzodiazepines Scrn Urine Cocaine Screen 12/05/16 12/05/16 12/05/16 04:19 05:18 05:22 WBC 14.5 H Neutrophils # 12.0 H ABG pH 7.46 H ABG pCO2 ABG pO2 158 H ABG HCO3 27 H ABG Total CO2 28 H ABG O2 Saturation 99.5 H Chloride Carbon Dioxide BUN Glucose POC Glucose (mg/dL) 122 H Magnesium Alkaline Phosphatase Ur Specific [place] Urine Protein Uric Acid Crystals Urine Mucus Urine Opiates Screen Ur Oxycodone Screen U Benzodiazepines Scrn Urine Cocaine Screen 12/05/16 12/05/16 12/05/16 05:22 05:30 08:15 WBC Neutrophils # ABG pH ABG pCO2 ABG pO2 ABG HCO3 ABG Total CO2 ABG O2 Saturation Chloride Carbon Dioxide BUN 5 L Glucose 109 H POC Glucose (mg/dL) 69 L Magnesium 2.5 H Alkaline Phosphatase Ur Specific [place] >1.050 H Urine Protein 1+ H Uric Acid Crystals Few H Urine Mucus Rare H Urine Opiates Screen Ur Oxycodone Screen U Benzodiazepines Scrn Urine Cocaine Screen Assessment and Plan (1) Heroin overdose Status: Acute Code(s): T40.1X1A - POISONING BY HEROIN, ACCIDENTAL ( UNINTENTIONAL), INIT ENCNTR (2) Acute encephalopathy Status: Acute Code(s): G93.40 - ENCEPHALOPATHY, UNSPECIFIED (3) Seizure Status: Acute Code(s): R56.9 - UNSPECIFIED CONVULSIONS (4) Hypoglycemia Status: Acute Code(s): E16.2 - HYPOGLYCEMIA, UNSPECIFIED Plan: This patient is a 36-year-old right-handed white male who was admitted to the intensive care unit with possible her when drug overdose and obtundation. Patient was initially intubated and placed on the ventilator and transferred to the intensive care in that this morning. He underwent 2 CT scans of the brain both of which were negative for any acute stroke or hemorrhage. He was extubated later this morning and is now examined in the intensive care unit. He is following all commands. He has no focal weakness. This patient has probable acute encephalopathy following drug overdose. It is questionable whether he may have had a hypoglycemic seizure. We will obtain routine EEG for further evaluation. He underwent the CT scans of the brain both of which were negative for any acute changes. We reviewed the results of the CAT scan with him today in detail. We do recommend that he considers following up with a drug rehab program such as [place]. We will continue close neurological follow-up with this patient in intensive care unit. So overall prognosis at this time remains very guarded. Time with Patient: Greater than 30
[2016-12-05 18:14] LABS: Glucose,Whole Blood 108 mg/dL (75-99)
[2016-12-05] MEDS ORDERED: IV VANCOMYCIN PER PHARMACY 1 EACH MISC MISCELLANE PRN (18:52)
[2016-12-05] MEDS ORDERED: VANCOMYCIN 1,250 MG in SODIUM CHLORIDE 0.9% 250 ML IVPB ONE (20:00)
[2016-12-05] MEDS: DEXTROSE 5%-0.9% NACL 1,000 ML IV SCH (20:24)
[2016-12-06] MEDS: PIPERACILLIN-TAZOBACTAM 3.375 GM in DEXTROSE/WATER 1 50ML.BAG IVPB SCH ×2 (00:56→08:28)
[2016-12-06] MEDS: oxyCODONE-APAP 10-325MG 1 EACH TAB PO PRN ×2 (04:24→11:02)
[2016-12-06] MEDS: DEXTROSE 5%-0.9% NACL 1,000 ML IV SCH (05:03)
[2016-12-06 05:47] LABS: Basophils # (A) 0.1 k/uL (0-0.2); Basophils % (A) 1 %; CH 31.2; CHCM 32.5; Eosinophils # (A) 0.2 k/uL (0-0.7); Eosinophils % (A) 2 %; HDW 2.47; HGB 13.6 gm/dL (13.0-17.5); Luc # (Auto) 0.19; Luc % (Auto) 2; Lymphocytes # (A) 2.5 k/uL (1.0-4.8); Lymphocytes % (A) 27 %; MCH 32.1 pg (25.0-35.0); MCHC 33.3 g/dL (31.0-37.0); MCV 96.4 fL (80.0-100.0); Mean Platelet Volume 7.4; Monocytes # (A) 0.4 k/uL (0-1.0); Monocytes % (A) 5 %; Neutrophils # (A) 5.7 k/uL (1.3-7.7); Neutrophils % (A) 63 %; RBC 4.26 m/uL (4.30-5.90); RDW 13.5 % (11.5-15.5); WBC (Perox) 8.63
[2016-12-06 05:59] LABS: Anion Gap 9 mmol/L; Blood Urea Nitrogen 7 mg/dL (9-20); Carbon Dioxide 25 mmol/L (22-30); Chloride 108 mmol/L (98-107); Glucose 110 mg/dL (74-99); Magnesium 2.3 mg/dL (1.6-2.3); Non-African American GFR(MDRD) >60 (>60 ml/min/1.73 sqM); Phosphorous 3.1 mg/dL (2.5-4.5); Potassium 3.6 mmol/L (3.5-5.1); Sodium 142 mmol/L (137-145)
[2016-12-06] MEDS ORDERED: Potassium Replacement Protocol 1 EACH MISC MISCELLANE PRN (06:36)
[2016-12-06] MEDS ORDERED: POTASSIUM CHLORIDE ER 20 MEQ TAB.ER PO SCH (07:00)
[2016-12-06] MEDS: CYCLOBENZAPRINE 10 MG TAB PO PRN (08:46)
[2016-12-06 09:14] VITALS: TEMP 98.6
--- NOTE | 2016-12-06 09:37 | XR ---
EXAMINATION TYPE: XR chest 1V DATE OF EXAM: 12/06/2016 HISTORY: RLL pneumonia. REFERENCE: Previous study dated 12/05/2016. FINDINGS: The patient has been extubated. The NG tube is been removed. There is stable, chronic appearing elevation of the right hemidiaphragm. There is some atelectatic ch shelbi at the right lung base. The left lung is clear. The heart is not enlarged. IMPRESSION: IMPROVED AERATION, RIGHT LUNG BASE.
[2016-12-06] MEDS: ESOMEPRAZOLE 20 MG in SODIUM CHLORIDE 0.9% 50 ML IVPB SCH (09:59)
[2016-12-06] MEDS: HEPARIN SODIUM,PORCINE 5,000 UNIT/ML 1 ML VIAL SQ SCH (09:59)
[2016-12-06 11:04] VITALS: RESP 16
[2016-12-06 12:14] LABS: Glucose,Whole Blood 108 mg/dL (75-99)
--- NOTE | 2016-12-06 12:34 | P.PN ---
Subjective There is 36-year-old male patient who presented yesterday to the emergency department unresponsive. Apparently the patient was found on the street with a needle in his arm. He has known history of polysubstance abuse. Based on the history was available to us, the patient was taking Percocet, benzodiazepine and heroin. His urine drug screen is positive for opiates, benzodiazepines, cocaine and oxycodone. Serum alcohol was negative. Still acetaminophen and salicylates were also negative. The patient was quite obtunded upon arrival to the emergency department. His aspirate was around 6 times per minute. He was given a few dose of Narcan without any improvement and subsequently was intubated and placed on mechanical ventilator. Intubation was not to secure his airway. Adequate oxygenation and ventilation was achieved following intubation and his subsequent blood gases showed a pH of 7.48 with a pCO2 of 28 and pO2 150. This was done and FiO2 of 100%. This morning his blood gases show a pH of 7.46 with a pCO2 of 38 and pO2 158 on a 70% FiO2. Currently on an assist-control mode at the rate of 18, tidal volume of 480, FiO2 of 70% and a PEEP of 5. Chest x-rays from today shows development of a right-sided pleural effusion and infiltrate most likely secondary to an underlying aspiration pneumonia. He was started on IV Zosyn last night. In addition, overnight the patient was noted to have some tremors and possible seizures. At one point his pupils were also noted to be asymmetrical. The right pupil was around 4 mm. The left was around 3. Based on that he was taken for a stat CAT scan of the brain which turned out to be negative. Neurologic consultation has been also obtained. He is currently on Diprivan at 50 mics. No further jerking body movements was noted since. Afebrile. Hemodynamically stable. On no pressors. On 12/06/2016, the patient is extubated. The patient is hemodynamically stable. The patient is fully awake alert and responsive and he denies having any complaints. No change in mental status. He is moving all 4 extremities without any limitation. He is tolerating his diet. No seizure activity has been noted. Neurologist on the case. EEG will be done today. A subsequent chest x-rays was done today shows clearing of the right lower lobe pneumonia. The patient is afebrile. No nausea. No vomiting. No abdominal pain. No signs of drug withdrawal. The patient has polysubstance abuse. The patient has utilize opiates, benzodiazepines, cocaine and oxycodone. Objective - Vital Signs Vital signs: Vital Signs Temp 98.6 F 12/06/16 07:00 Pulse 81 12/06/16 12:00 Resp 16 12/06/16 12:00 BP 95/52 12/06/16 12:00 Pulse Ox 99 12/06/16 12:00 Intake & Output 12/05/16 12/06/16 12/06/16 18:59 06:59 18:59 Intake Total 4131.181 6369.5 310 Output Total 1115 1255 245 Balance 419.307 42.5 65 Weight 58.7 kg 58.7 kg 103.5 kg Intake: IV 1040 1222.5 310 Dextrose 5% in Water 1, 600 000 ml @ 75 mls/hr IV . [id number] [facility] Rx#:[id number] Dextrose 5%-0.9% NaCl 1, 900 310 000 ml @ 10 mls/hr IV . Q24H [facility] Rx#:[id number] Piperacillin-Tazobactam 3 62.5 .375 gm In Dextrose/Water 1 50ml.bag @ 12.5 mls/hr IVPB Q8HR [facility] Rx#: [id number] Sodium Chloride 0.9% 1, 440 10 000 ml @ 100 mls/hr IV . Q10H [facility] Rx#:[id number] Vancomycin 1,250 mg In 250 Sodium Chloride 0.9% 250 ml @ 125 mls/hr IVPB ONCE [facility] Rx#:[id number] Intake, IV Titration 494.307 75 Amount Dextrose 5%-0.9% NaCl 1, 300 75 000 ml @ 10 mls/hr IV . Q24H [facility] Rx#:[id number] Esomeprazole 20 mg In 100 Sodium Chloride 0.9% 50 ml @ 100 mls/hr IVPB DAILY [facility] Rx#:[id number] Piperacillin-Tazobactam 3 50.0 .375 gm In Dextrose/Water 1 50ml.bag @ 12.5 mls/hr IVPB Q8HR [facility] Rx#: [id number] Propofol 1,000 mg In 100 44.307 ml @ Titrate IV .Q0M [facility] Rx#:[id number] Output: Urine 1115 1255 245 Other: Voiding Method Indwelling Catheter Indwelling Catheter Indwelling Catheter - Exam The patient appeared well nourished and normally developed. Vital signs as documented. Head exam is unremarkable. No scleral icterus or corneal arcus noted. Neck is without jugular venous distension, thyromegaly, or carotid bruits. Carotid upstrokes are brisk bilaterally. Lungs are clear to auscultation and percussion. Cardiac exam reveals the PMI to be normally sized and situated. Rhythm is regular. First and second heart sounds normal. No murmurs, rubs or gallops. Abdominal exam reveals normal bowel sounds, no masses , no organomegaly and no aortic enlargement. Extremities are nonedematous and both femoral and pedal pulses are normal. - Labs CBC & Chem 7: 12/06/16 05:31 12/06/16 05:31 Labs: Abnormal Lab Results - Last 24 Hours (Table) 12/05/16 12/06/16 12/06/16 Range/Units 18:01 05:31 05:31 RBC 4.26 L (4.30-5.90) m/uL Chloride 108 H (98-107) mmol/L BUN 7 L (9-20) mg/dL Glucose 110 H (74-99) mg/dL POC Glucose (mg/dL) 108 H (75-99) mg/dL 12/06/16 Range/Units 12:13 RBC (4.30-5.90) m/uL Chloride (98-107) mmol/L BUN (9-20) mg/dL Glucose (74-99) mg/dL POC Glucose (mg/dL) 108 H (75-99) mg/dL Microbiology - Last 24 Hours (Table) 12/05/16 05:22 Blood Culture - Final Blood 12/05/16 05:22 Blood Culture Gram Stain - Preliminary Blood Blood Culture - Preliminary Strep agalactiae - (group b) 12/05/16 05:30 Urine Culture - Preliminary Urine,Catheterized Assessment and Plan Plan: Assessment 1 acute drug overdose, suspect acute heroin overdose/narcotic medication overdose, as the patient was obtunded and hypoventilating at a time of arrival. The patient failed to respond to Narcan and the patient had to be intubated and placed on a mechanical ventilator. On 12/06/2016 the patient is being seen in follow-up. The patient is extubated and his been extubated for more than 24 hours. He is doing well without any respiratory insufficiency at this point. 2 Right lower lobe pneumonia/effusion. Likely consistent with aspiration pneumonia. The patient was started on IV Zosyn and the subsequent chest x-ray shows no acute abnormalities 3 polysubstance abuse including oxycodone, benzodiazepine, heroin and cocaine 4 questionable seizures, probably later to underlying hypoglycemia. Patient is currently on D5 water and blood sugars of within normal range. CAT scan of the brain was negative and the patient is in the process of given a sedation holiday. Neurology is also on consult. Plan Stop the IV Zosyn and put the patient oral Augmentin for the next 5 days a 75 mg by mouth twice a day. Aspiration precautions. Chest x-ray is clear. Advance diet. EEG today. Ambulate in the hallway. Remove the Sanches catheter. The patient can leave the intensive care unit and later stage.
--- NOTE | 2016-12-06 13:28 | HP ---
SUBJECTIVE: A 36-year-old white male who presented to the ER, unresponsive. He was found with a needle in his arm with a history of polysubstance abuse. He took heroin, Percocet and benzodiazepines. Drug screen positive for oxycodone, benzodiazepines, opiates. Alcohol is negative as well as acetaminophen was found to be negative. He as obtunded. Given a few doses of Narcan without any improvement. He was later on seen by [facility] on the ventilator in the ICU. He was started on IV Zosyn for an aspiration pneumonia which showed up on a chest x-ray. He has some possible tremors and seizures on the vent overnight. CAT scan of the brain was negative. He remains on the ventilator. PAST SURGICAL HISTORY: Negative, except for herniated disc, polysubstance abuse , MRSA. Home medications are: 1. Percocet. 2. Xanax. 3. Lyrica. Allergies are negative. VITAL SIGNS: Pulse is in the 80s, respiratory 18 to 20, blood pressure is 110 to 120/60s to 70s, temp 37, O2 is 100% on the ventilator. Vent settings were reviewed. Remains on propofol, Zosyn. Lungs are clear. HEART: S1, S2. ABDOMEN: Normal bowel sounds VASCULAR: Normal dorsalis pedis, posterior radial. OPHTHALMOLOGIC: Pupils equal, round and reactive to light and accommodation. Extraocular muscles intact. Labs were reviewed. White count 14.5, glucose 66 to 120s. ASSESSMENT: 1. Acute drug overdose. 2. Right lower lobe pneumonia. 3. Polysubstance abuse. 4. Questionable seizure. 5. Hyperglycemia. PLAN: EEG, proton pump prophylaxis. Wean ventilator settings, extubate soon. Continue antibiotics for the pneumonia. May need a Psych consult. ICU time 30 minutes. MTDD
[2016-12-06 14:41] VITALS: BP 131/69; PULSE 77
[2016-12-06] MEDS ORDERED: AMOXIC-POT CLAV 875-125MG 1 EACH TAB PO SCH (21:00)
--- NOTE | 2016-12-07 05:35 | EEG ---
DATE OF SERVICE: 12/06/2016 ELECTROENCEPHALOGRAPHIC EXAMINATION REPORT INDICATION FOR EXAMINATION: This patient is an 36-year-old male admitted to the intensive care unit with drug overdose. Patient with acute mental status changes and obtundation. AGE: 36. EEG FINDINGS: A routine 21-channel awake, digital EEG recording was accomplished utilizing the 10-20 international system with bipolar and referential montages. The background activity in the most alert resting state consists of a low to medium amplitude, fairly well-developed and well-sustained 6 Hz activity over the posterior head regions. This posterior rhythm attenuates minimally to eye opening. There is a small amount of low amplitude 18-20 Hz beta activity seen maximally over the anterior head regions. Muscle and movement artifact was observed on several occasions during the tracing. Hyperventilation was not performed. Photic stimulation at flash frequencies of 2-30 Hz produced a minimal occipital driving response. No epileptiform discharges were seen. IMPRESSION: This EEG is moderately abnormal in diffuse fashion due to slowing of the EEG background. The EEG failed to reveal any focal, lateralized or epileptiform abnormalities. Clinical correlation is recommended. [facility]
== END 2016-12-06 15:56 | disposition left against medical advice (07) | DRG 917 ==
LOC: EC 18:40 → 6ICU 21:25
PROVIDERS: ADMIT Family Medicine; ATTEND Family Medicine
PROC: 5A1935Z Respiratory Ventilation, Less than 24 Consecutive Hours (ICD-10-PCS; principal; 2016-12-04)
PROC: 0BH18EZ Insertion of Endotracheal Airway into Trachea, Via Natural or Artificial Opening Endoscopic (ICD-10-PCS; principal; 2016-12-04)
DX: T40.1X1A Poisoning by heroin, accidental (unintentional), initial encounter (principal); G93.40 Encephalopathy, unspecified; J96.00 Acute respiratory failure, unspecified whether with hypoxia or hypercapnia; J69.0 Pneumonitis due to inhalation of food and vomit; J90 Pleural effusion, not elsewhere classified; R56.9 Unspecified convulsions; F11.20 Opioid dependence, uncomplicated; F14.20 Cocaine dependence, uncomplicated; E16.2 Hypoglycemia, unspecified; F17.200 Nicotine dependence, unspecified, uncomplicated
CPT/HCPCS: 36415; 36600; 70450; 70470; 71010; 72125; 72170; 80048; 80053; 80306; 80320; 81001; 82550; 82805; 83520; 83605; 83735; 84100; 85025; 87040; 87077; 87086; 87186; 93005; 94002; 94003; 95819

== ENCOUNTER 2016-12-17 23:56 | Emergency (ER) | payer OTHER ==
[2016-12-18] MEDS ORDERED: RX INFO: IV CONTRAST WAS GIVEN 1 EACH MISC MISCELLANE PRN
[2016-12-18 00:03] VITALS: RESP 16
--- NOTE | 2016-12-18 00:05 | ED ---
Fall HPI - General Stated Complaint: Back pain Time Seen by Provider: 12/17/16 23:56 Source: patient, EMS, RN notes reviewed, old records reviewed - History of Present Illness Initial Comments: This is a 36-year-old male with a history of lumbar disc disease also a recent history of respiratory failure from drug overdose apparently whose came in by EMS complaining of low back pain. He states he had sharp low back pain 10/10 severity was shows arrival that he will be known that he fell about 12 feet off of a roof landing on dirt flat on his back around 4:00 this afternoon. He denies any loss of consciousness he stated his neck hurts somewhat but mostly he has low back pain and left CVA pain. He also states he has had chronic left upper quadrant abdominal pain for the past couple years. He denies any fevers chills nausea vomiting sweats a loss of function is upper or lower extremities no blurry vision or other symptoms at this time. MD Complaint: fall - Related Data Home Medications Medication Instructions Recorded Confirmed oxyCODONE HCL/ACETAMINOPHEN 1 tab PO TID PRN 08/11/16 12/04/16 [Percocet 10-325 mg] ALPRAZolam [Xanax] 1 mg PO BID 12/04/16 12/04/16 Pregabalin [Lyrica] 75 mg PO BID 12/04/16 12/04/16 Previous Rx's Medication Instructions Recorded Cyclobenzaprine [Flexeril] 10 mg PO TID #14 tab 12/18/16 Ibuprofen 800 mg PO Q6HR PRN #20 tablet 12/18/16 Allergies Allergy/AdvReac Type Severity Reaction Status Date / Time No Known Allergies Allergy Verified 08/22/16 09:55 Review of Systems ROS Statement: Those systems with pertinent positive or pertinent negative responses have been documented in the HPI. ROS Other: All systems not noted in ROS Statement are negative. Past Medical History Past Medical History: No Reported History Additional Past Medical History / Comment(s): herniated disc History of Any Multi-Drug Resistant Organisms: MRSA Date of last positivie culture/infection: 12/03/15 MDRO Source:: BACK Past Surgical History: No Surgical Hx Reported Additional Past Surgical History / Comment(s): left ankle pins & screws Past Psychological History: Anxiety, Depression Smoking Status: Current every day smoker Past Alcohol Use History: Occasional Past Drug Use History: Heroin, IV Drug Use General Exam - General Exam Comments Initial Comments: This is a well-developed well-nourished awake alert oriented 3 male he does demonstrate a Diego Coma Scale of 15 General appearance: alert, in no apparent distress Head exam: Present: atraumatic, normocephalic, normal inspection Eye exam: Present: normal appearance, PERRL, EOMI. Absent: scleral icterus, conjunctival injection, periorbital swelling ENT exam: Present: normal exam, mucous membranes moist Neck exam: Present: normal inspection, tenderness (Mild tenderness palpation of the paraspinous muscles no spinous process tenderness no step-off or crepitation.), full ROM. Absent: meningismus, lymphadenopathy Respiratory exam: Present: normal lung sounds bilaterally. Absent: respiratory distress, wheezes, rales, rhonchi, stridor Cardiovascular Exam: Present: regular rate, normal rhythm, normal heart sounds. Absent: systolic murmur, diastolic murmur, rubs, gallop, clicks GI/Abdominal exam: Present: soft, tenderness, normal bowel sounds. Absent: distended, guarding, rebound, rigid Rectal exam: Present: deferred Extremities exam: Present: normal inspection, full ROM, normal capillary refill. Absent: tenderness, pedal edema, joint swelling, calf tenderness Back exam: Present: normal inspection, CVA tenderness (L) (Mild left CVA area tenderness no step-off or crepitation) Neurological exam: Present: alert, oriented X3, CN II-XII intact Psychiatric exam: Present: normal affect, normal mood Skin exam: Present: warm, dry, intact, normal color. Absent: rash Course Vital Signs 12/17/16 12/18/16 23:57 00:17 Temperature 97.4 F L Pulse Rate 91 81 Respiratory 16 16 Rate Blood Pressure 117/55 111/62 O2 Sat by Pulse 98 98 Oximetry Medical Decision Making - Lab Data Result diagrams: 12/18/16 00:24 12/18/16 00:24 Lab Results 12/18/16 12/18/16 12/18/16 Range/Units 00:24 00:24 00:24 WBC (3.8-10.6) k/uL RBC (4.30-5.90) m/uL Hgb (13.0-17.5) gm/dL Hct (39.0-53.0) % MCV (80.0-100.0) fL MCH (25.0-35.0) pg MCHC (31.0-37.0) g/dL RDW (11.5-15.5) % Plt Count (150-450) k/uL Neutrophils % (Manual) % Lymphocytes % (Manual) % Monocytes % (Manual) % Eosinophils % (Manual) % Neutrophils # (Manual) (1.3-7.7) k/uL Lymphocytes # (Manual) (1.0-4.8) k/uL Monocytes # (Manual) (0-1.0) k/uL Eosinophils # (Manual) (0-0.7) k/uL Nucleated RBCs (0-0) /100 WBC Manual Slide Review PT (9.0-12.0) sec INR (<1.2) APTT (22.0-30.0) sec Sodium 142 (137-145) mmol/L Potassium 4.0 (3.5-5.1) mmol/L Chloride 106 (98-107) mmol/L Carbon Dioxide 26 (22-30) mmol/L Anion Gap 10 mmol/L BUN 9 (9-20) mg/dL Creatinine 0.90 (0.66-1.25) mg/dL Est GFR (MDRD) Af Amer >60 (>60 ml/min/1.73 sqM) Est GFR (MDRD) Non-Af >60 (>60 ml/min/1.73 sqM) Glucose 81 (74-99) mg/dL Calcium 9.5 (8.4-10.2) mg/dL Total Bilirubin 0.3 (0.2-1.3) mg/dL AST 29 (17-59) U/L ALT 38 (21-72) U/L Alkaline Phosphatase 110 (38-126) U/L Total Creatine Kinase 63 (55-170) U/L CK-MB (CK-2) 1.2 (0.0-2.4) ng/mL CK-MB (CK-2) Rel Index 1.9 Troponin I <0.012 (0.000-0.034) ng/mL Total Protein 7.1 (6.3-8.2) g/dL Albumin 3.8 (3.5-5.0) g/dL Urine Color Urine Appearance (Clear) Urine pH (5.0-8.0) Ur Specific [place] (1.001-1.035) Urine Protein (Negative) Urine Glucose (UA) (Negative) Urine Ketones (Negative) Urine Blood (Negative) Urine Nitrite (Negative) Urine Bilirubin (Negative) Urine Urobilinogen (<2.0) mg/dL Ur Leukocyte Esterase (Negative) Urine RBC (0-5) /hpf Amorphous Sediment (None) /hpf Hyaline Casts (0-2) /lpf Urine Mucus (None) /hpf Urine Opiates Screen (NotDetected) Ur Oxycodone Screen (NotDetected) Urine Methadone Screen (NotDetected) Ur Propoxyphene Screen (NotDetected) Ur Barbiturates Screen (NotDetected) U Tricyclic Antidepress (NotDetected) Ur Phencyclidine Scrn (NotDetected) Ur Amphetamines Screen (NotDetected) U Methamphetamines Scrn (NotDetected) U Benzodiazepines Scrn (NotDetected) Urine Cocaine Screen (NotDetected) U Marijuana (THC) Screen (NotDetected) Serum Alcohol <10 mg/dL Blood Type A Negative Blood Type Confirm Blood Type Recheck CABO Indicated Antibody Screen NEGATIVE Spec Expiration Date 12/21/2016 - 232312/18/16 12/18/16 12/18/16 Range/Units 00:24 00:24 00:25 WBC 9.6 (3.8-10.6) k/uL RBC 4.66 (4.30-5.90) m/uL Hgb 14.0 (13.0-17.5) gm/dL Hct 43.4 (39.0-53.0) % MCV 93.2 (80.0-100.0) fL MCH 30.1 (25.0-35.0) pg MCHC 32.3 (31.0-37.0) g/dL RDW 13.5 (11.5-15.5) % Plt Count 350 (150-450) k/uL Neutrophils % (Manual) 58.0 % Lymphocytes % (Manual) 30.0 % Monocytes % (Manual) 9.0 % Eosinophils % (Manual) 3.0 % Neutrophils # (Manual) 5.6 (1.3-7.7) k/uL Lymphocytes # (Manual) 2.9 (1.0-4.8) k/uL Monocytes # (Manual) 0.9 (0-1.0) k/uL Eosinophils # (Manual) 0.3 (0-0.7) k/uL Nucleated RBCs 0 (0-0) /100 WBC Manual Slide Review Performed PT 10.7 (9.0-12.0) sec INR 1.1 (<1.2) APTT 25.5 (22.0-30.0) sec Sodium (137-145) mmol/L Potassium (3.5-5.1) mmol/L Chloride (98-107) mmol/L Carbon Dioxide (22-30) mmol/L Anion Gap mmol/L BUN (9-20) mg/dL Creatinine (0.66-1.25) mg/dL Est GFR (MDRD) Af Amer (>60 ml/min/1.73 sqM) Est GFR (MDRD) Non-Af (>60 ml/min/1.73 sqM) Glucose (74-99) mg/dL Calcium (8.4-10.2) mg/dL Total Bilirubin (0.2-1.3) mg/dL AST (17-59) U/L ALT (21-72) U/L Alkaline Phosphatase (38-126) U/L Total Creatine Kinase (55-170) U/L CK-MB (CK-2) (0.0-2.4) ng/mL CK-MB (CK-2) Rel Index Troponin I (0.000-0.034) ng/mL Total Protein (6.3-8.2) g/dL Albumin (3.5-5.0) g/dL Urine Color Yellow Urine Appearance Turbid (Clear) Urine pH 5.5 (5.0-8.0) Ur Specific [place] 1.029 (1.001-1.035) Urine Protein Trace H (Negative) Urine Glucose (UA) Negative (Negative) Urine Ketones Negative (Negative) Urine Blood Negative (Negative) Urine Nitrite Negative (Negative) Urine Bilirubin Negative (Negative) Urine Urobilinogen <2.0 (<2.0) mg/dL Ur Leukocyte Esterase Negative (Negative) Urine RBC 2 (0-5) /hpf Amorphous Sediment Rare H (None) /hpf Hyaline Casts 45 H (0-2) /lpf Urine Mucus Many H (None) /hpf Urine Opiates Screen Detected H (NotDetected) Ur Oxycodone Screen Not Detected (NotDetected) Urine Methadone Screen Not Detected (NotDetected) Ur Propoxyphene Screen Not Detected (NotDetected) Ur Barbiturates Screen Not Detected (NotDetected) U Tricyclic Antidepress Detected H (NotDetected) Ur Phencyclidine Scrn Not Detected (NotDetected) Ur Amphetamines Screen Not Detected (NotDetected) U Methamphetamines Scrn Not Detected (NotDetected) U Benzodiazepines Scrn Detected H (NotDetected) Urine Cocaine Screen Not Detected (NotDetected) U Marijuana (THC) Screen Not Detected (NotDetected) Serum Alcohol mg/dL Blood Type Blood Type Confirm Blood Type Recheck Antibody Screen Spec Expiration Date 12/18/16 Range/Units 01:07 WBC (3.8-10.6) k/uL RBC (4.30-5.90) m/uL Hgb (13.0-17.5) gm/dL Hct (39.0-53.0) % MCV (80.0-100.0) fL MCH (25.0-35.0) pg MCHC (31.0-37.0) g/dL RDW (11.5-15.5) % Plt Count (150-450) k/uL Neutrophils % (Manual) % Lymphocytes % (Manual) % Monocytes % (Manual) % Eosinophils % (Manual) % Neutrophils # (Manual) (1.3-7.7) k/uL Lymphocytes # (Manual) (1.0-4.8) k/uL Monocytes # (Manual) (0-1.0) k/uL Eosinophils # (Manual) (0-0.7) k/uL Nucleated RBCs (0-0) /100 WBC Manual Slide Review PT (9.0-12.0) sec INR (<1.2) APTT (22.0-30.0) sec Sodium (137-145) mmol/L Potassium (3.5-5.1) mmol/L Chloride (98-107) mmol/L Carbon Dioxide (22-30) mmol/L Anion Gap mmol/L BUN (9-20) mg/dL Creatinine (0.66-1.25) mg/dL Est GFR (MDRD) Af Amer (>60 ml/min/1.73 sqM) Est GFR (MDRD) Non-Af (>60 ml/min/1.73 sqM) Glucose (74-99) mg/dL Calcium (8.4-10.2) mg/dL Total Bilirubin (0.2-1.3) mg/dL AST (17-59) U/L ALT (21-72) U/L Alkaline Phosphatase (38-126) U/L Total Creatine Kinase (55-170) U/L CK-MB (CK-2) (0.0-2.4) ng/mL CK-MB (CK-2) Rel Index Troponin I (0.000-0.034) ng/mL Total Protein (6.3-8.2) g/dL Albumin (3.5-5.0) g/dL Urine Color Urine Appearance (Clear) Urine pH (5.0-8.0) Ur Specific [place] (1.001-1.035) Urine Protein (Negative) Urine Glucose (UA) (Negative) Urine Ketones (Negative) Urine Blood (Negative) Urine Nitrite (Negative) Urine Bilirubin (Negative) Urine Urobilinogen (<2.0) mg/dL Ur Leukocyte Esterase (Negative) Urine RBC (0-5) /hpf Amorphous Sediment (None) /hpf Hyaline Casts (0-2) /lpf Urine Mucus (None) /hpf Urine Opiates Screen (NotDetected) Ur Oxycodone Screen (NotDetected) Urine Methadone Screen (NotDetected) Ur Propoxyphene Screen (NotDetected) Ur Barbiturates Screen (NotDetected) U Tricyclic Antidepress (NotDetected) Ur Phencyclidine Scrn (NotDetected) Ur Amphetamines Screen (NotDetected) U Methamphetamines Scrn (NotDetected) U Benzodiazepines Scrn (NotDetected) Urine Cocaine Screen (NotDetected) U Marijuana (THC) Screen (NotDetected) Serum Alcohol mg/dL Blood Type Blood Type Confirm A Negative Blood Type Recheck Antibody Screen Spec Expiration Date - EKG Data -: EKG Interpreted by [facility] EKG shows normal: sinus rhythm, axis, intervals, QRS complexes, ST-T waves ( Sinus rhythm of 85. Interval 158 QRS 92 QT since QTC of 392/466 this is a normal-appearing EKG) Rate: normal - Radiology Data Radiology results: report reviewed (I did review the imaging and reports. The patient has no evidence of any acute findings she does show evidence of degenerative joint disease.), image reviewed Disposition Clinical Impression: Fall, Lumbar strain Disposition: HOME SELF-CARE Condition: Good Instructions: Lower Back Exercises (ED), Low Back Strain (ED) Prescriptions: Cyclobenzaprine [Flexeril] 10 mg PO TID #14 tab Ibuprofen 800 mg PO Q6HR PRN #20 tablet PRN Reason: Pain Referrals: None,Stated [Primary Care Provider] - 1-2 days
[2016-12-18 00:36] LABS: Aty Lym Flag Slight; CH 31.4; CHCM 33.8; HCT 43.4 % (39.0-53.0); HDW 2.52; MCH 30.1 pg (25.0-35.0); MCHC 32.3 g/dL (31.0-37.0); MCV 93.2 fL (80.0-100.0); Mean Platelet Volume 7.4; RBC 4.66 m/uL (4.30-5.90); RDW 13.5 % (11.5-15.5); WBC 9.6 k/uL (3.8-10.6); WBC (Perox) 9.54
[2016-12-18 00:40] LABS: ALT 38 U/L (21-72); AST 29 U/L (17-59); Alcohol <10 mg/dL; Alkaline Phosphatase 110 U/L (38-126); Anion Gap 10 mmol/L; Blood Urea Nitrogen 9 mg/dL (9-20); Calcium 9.5 mg/dL (8.4-10.2); Carbon Dioxide 26 mmol/L (22-30); Chloride 106 mmol/L (98-107); Glucose 81 mg/dL (74-99); Non-African American GFR(MDRD) >60 (>60 ml/min/1.73 sqM); Sodium 142 mmol/L (137-145); Total Bilirubin 0.3 mg/dL (0.2-1.3); Total Protein 7.1 g/dL (6.3-8.2)
[2016-12-18 00:41] LABS: INR 1.1 (<1.2); Partial Thromboplastin Time 25.5 sec (22.0-30.0); Prothrombin Time 10.7 sec (9.0-12.0)
[2016-12-18 00:50] LABS: Creatine Kinase 63 U/L (55-170)
[2016-12-18 00:59] LABS: Add Differential Manual Differential
[2016-12-18 01:01] LABS: Manual Review Performed; Nucleated Red Blood Cells 0 /100 WBC (0-0); Total Cells Counted 100
[2016-12-18 01:03] LABS: Creatine Kinase MB 1.2 ng/mL (0.0-2.4); Troponin I <0.012 ng/mL (0.000-0.034)
--- NOTE | 2016-12-18 01:04 | XR ---
EXAM: XR Chest, 1 View CLINICAL HISTORY: Reason: trauma TECHNIQUE: Frontal view of the chest. COMPARISON: Chest radiograph 12/06/2016 FINDINGS: Lungs: Lungs are clear. Pleural space: No evidence of pneumothorax or pleural effusion. Heart: Heart size is within normal limits. Mediastinum: Mediastinal structures are within normal limits. Bones/joints: Imaged bony thorax is unremarkable. IMPRESSION: No evidence of acute cardiopulmonary disease.
[2016-12-18 01:13] LABS: Amorphous Sediment,Urine Rare /hpf; Appearance,Urine Turbid (Clear); Bilirubin,Urine Negative (Negative); Glucose,Urine (UA) Negative (Negative); Ketones,Urine Negative (Negative); Leukocyte Esterase,Urine Negative (Negative); Mucus,Urine Many /hpf; Nitrite,Urine Negative (Negative); PH, Urine 5.5 (5.0-8.0); Particle Count 29804; Protein,Urine Trace (Negative); RBC,Urine 2 /hpf (0-5); Specific Gravity,Urine 1.029 (1.001-1.035); UA Billing (MACRO vs. MICRO) MICRO; Urobilinogen,Urine <2.0 mg/dL (<2.0)
[2016-12-18] MEDS ORDERED: KETOROLAC 30 MG/ML 1 ML VIAL IVP STA (01:25)
--- NOTE | 2016-12-18 01:36 | CT ---
CT HEAD Without Contrast: Clinical history: Trauma Technique: CTDI is 57.40 mGy and DLP is 1167.70 mGy-cm. This CT exam was performed using one or more of the following dose reduction techniques: automated exposure control, adjustment of the mA and/or kV according to patient size, and/or use of iterative reconstruction technique. Comparison: CT head and cervical spine dated December 05, 2016 Findings: Ventricles are of normal size and configuration without abnormal mass effect or midline shift. Normal hammonds-white differentiation. No cerebral edema. No evidence of acute cerebral infarction or intracranial hemorrhage. No abnormal extra-axial collections identified. No evidence of skull fracture. Mucosal thickening is seen in the ethmoid and maxillary sinuses. Left maxillary sinus mucous retention cyst. Impression: No acute intracranial abnormality. CT C SPINE Without Contrast Technique: CTDI is 23.10 mGy and DLP is 619.00 mGy-cm. This CT exam was performed using one or more of the following dose reduction techniques: automated exposure control, adjustment of the mA and/or kV according to patient size, and/or use of iterative reconstruction technique Comparison: CT head and cervical spine dated December 05, 2016. Findings: Cervical vertebral body height and alignment are within normal limits. No evidence of cervical fracture or subluxation. No significant osseous spinal stenosis. Prevertebral soft tissues are unremarkable. Impression. No evidence of cervical fracture or subluxation.
--- NOTE | 2016-12-18 01:57 | CT ---
EXAM: CT Chest With Intravenous Contrast CLINICAL HISTORY: Reason: trauma TECHNIQUE: Axial computed tomography images of the chest with intravenous contrast. CTDI is 11.70 mGy and DLP is a 75.40 mGy-cm. This is combined for CT chest abdomen and pelvis. This CT exam was performed using one or more of the following dose reduction techniques: automated exposure control, adjustment of the mA and/or kV according to patient size, and/or use of iterative reconstruction technique. COMPARISON: None available FINDINGS: Lungs: Minor subsegmental atelectasis dependent lungs, right greater than left. Pleural space: Unremarkable. No pneumothorax. No significant effusion. Heart: Unremarkable. No cardiomegaly. No significant pericardial effusion. Bones/joints: No acute thoracic bony abnormalities identified Soft tissues: Unremarkable. Vasculature: No thoracic aortic aneurysm. No evidence of thoracic aortic vascular injury. Lymph nodes: No enlarged lymph nodes. IMPRESSION: No evidence of acute cardiopulmonary disease. EXAM: CT Abdomen and Pelvis With Intravenous Contrast CLINICAL HISTORY: Reason: trauma TECHNIQUE: Axial computed tomography images of the abdomen and pelvis with intravenous contrast. CTDI is 11.70 mGy and DLP is a 75.40 mGy-cm. This is combined for CT chest abdomen and pelvis. This CT exam was performed using one or more of the following dose reduction techniques: automated exposure control, adjustment of the mA and/or kV according to patient size, and/or use of iterative reconstruction technique. COMPARISON: None available FINDINGS: Lower thorax: No acute findings. ABDOMEN: Liver: Unremarkable. No mass. Gallbladder and bile ducts: Unremarkable. No calcified stones. No ductal dilation. Pancreas: Unremarkable. No mass. No ductal dilation. Spleen: Unremarkable. No splenomegaly. Adrenals: Unremarkable. No mass. Kidneys and ureters: Unremarkable. No evidence of renal laceration. No hydronephrosis. Stomach and bowel: Unremarkable. No obstruction. No evidence of pneumoperitoneum Appendix: No findings to suggest acute appendicitis. No evidence of visceral organ injury. No evidence of hemoperitoneum. PELVIS: Bladder: Unremarkable. No mass. Reproductive: Unremarkable as visualized. ABDOMEN and PELVIS: Intraperitoneal space: Unremarkable. No free air. No significant fluid collection. Bones/joints: Degenerative disc disease L5-S1. No acute fracture or dislocation. Soft tissues: Unremarkable. Vasculature: No abdominal aortic aneurysm. Lymph nodes: No enlarged lymph nodes. IMPRESSION: No evidence of acute abdominal-pelvic disease.
[2016-12-18 02:25] VITALS: BP 126/68; PULSE 80; TEMP 98
== END 2016-12-18 02:22 | disposition home or self-care (01) ==
LOC: EC 23:56
DX: S39.012A Strain of muscle, fascia and tendon of lower back, initial encounter (principal); F41.9 Anxiety disorder, unspecified; F32.9 Major depressive disorder, single episode, unspecified; F17.200 Nicotine dependence, unspecified, uncomplicated; Z86.14 Personal history of Methicillin resistant Staphylococcus aureus infection; Z79.899 Other long term (current) drug therapy; W13.2XXA Fall from, out of or through roof, initial encounter; Y92.009 Unspecified place in unspecified non-institutional (private) residence as the place of occurrence of the external cause
CPT/HCPCS: 36415; 93005; 86900; 86901; 80053; 82550; 82553; 84484; 85025; 85610; 85730; 86850; 81001; 80306; 80320; 71010; 72125; 70450; 71260; 74177; 99285; 96374; J1885; Q9967

== ENCOUNTER 2016-12-18 17:13 | Emergency (ER) | payer OTHER ==
--- NOTE | 2016-12-18 17:25 | ED ---
General Adult HPI - General Stated complaint: Overdose Time Seen by Provider: 12/18/16 17:19 Source: patient, EMS, RN notes reviewed, old records reviewed - History of Present Illness Initial comments: 36 yo male presents with heroin overdose. Patient was found in his car, apneic and nonresponsive. IV was established, patient was given 2 mg of IV Narcan, he did require BVM to support respirations. After IV Narcan patient did admit to using IV heroin. He was found with IV heroin. Patient also states that he took his normal daily dose of Xanax. He denies taking any extra medication. Denies taking any opiates pain pills. Denies suicidal ideation. Patient has no complaints. Denies nausea vomiting or abdominal pain. Denies difficulty breathing or chest pain. - Related Data Home Medications Medication Instructions Recorded Confirmed oxyCODONE HCL/ACETAMINOPHEN 1 tab PO TID PRN 08/11/16 12/18/16 [Percocet 10-325 mg] ALPRAZolam [Xanax] 1 mg PO BID 12/04/16 12/18/16 Pregabalin [Lyrica] 75 mg PO BID 12/04/16 12/18/16 Previous Rx's Medication Instructions Recorded Cyclobenzaprine [Flexeril] 10 mg PO TID #14 tab 12/18/16 Ibuprofen 800 mg PO Q6HR PRN #20 tablet 12/18/16 Allergies Allergy/AdvReac Type Severity Reaction Status Date / Time No Known Allergies Allergy Verified 08/22/16 09:55 Review of Systems ROS Statement: Those systems with pertinent positive or pertinent negative responses have been documented in the HPI. ROS Other: All systems not noted in ROS Statement are negative. Past Medical History Past Medical History: No Reported History Additional Past Medical History / Comment(s): herniated disc History of Any Multi-Drug Resistant Organisms: MRSA Date of last positivie culture/infection: 12/03/15 MDRO Source:: BACK Past Surgical History: No Surgical Hx Reported Additional Past Surgical History / Comment(s): left ankle pins & screws Past Psychological History: Anxiety, Depression Smoking Status: Current every day smoker Past Alcohol Use History: Occasional Past Drug Use History: Heroin, IV Drug Use General Exam Limitations: no limitations General appearance: in no apparent distress, lethargic Head exam: Present: atraumatic, normocephalic Eye exam: Present: normal appearance, PERRL (3 mm and reactive) ENT exam: Present: mucous membranes dry Neck exam: Present: normal inspection, full ROM. Absent: meningismus Respiratory exam: Present: normal lung sounds bilaterally. Absent: respiratory distress, wheezes Cardiovascular Exam: Present: normal rhythm, tachycardia GI/Abdominal exam: Present: soft. Absent: distended, tenderness Extremities exam: Present: normal inspection, normal capillary refill. Absent: pedal edema Neurological exam: Present: alert, oriented X3. Absent: motor sensory deficit Psychiatric exam: Present: normal affect, normal mood Skin exam: Present: warm, dry. Absent: cyanosis, diaphoretic Medical Decision Making - Medical Decision Making Patient was drowsy but arousable upon arrival. He was given 1 mg of IV Narcan. Patient attempted to leave, I was able to reevaluate the patient. He was alert and oriented 3. He was aware that we recommended that he stay for observation and that the Narcan may wear off and he may stop breathing. Patient is aware of this. Patient signs out AGAINST MEDICAL ADVICE. Diagnosis: Heroin overdose, left AGAINST MEDICAL ADVICE Disposition Clinical Impression: Heroin overdose Disposition: Left Against Medical Advice Referrals: None,Stated [Primary Care Provider] - 1-2 days
[2016-12-18 17:34] VITALS: BP 133/84; PULSE 103; RESP 18; TEMP 97.9
== END 2016-12-18 17:42 | disposition left against medical advice (07) ==
LOC: EC 17:13
DX: T40.1X1A Poisoning by heroin, accidental (unintentional), initial encounter (principal); F32.9 Major depressive disorder, single episode, unspecified; F41.9 Anxiety disorder, unspecified; F17.200 Nicotine dependence, unspecified, uncomplicated; Z79.899 Other long term (current) drug therapy
CPT/HCPCS: 99285 ×2; 96374; 36415; 93005; 86900; 86901; 80053; 82550; 82553; 84484; 85025; 85610; 85730; 86850; 81001; 80306; 80320; 71010; 72125; 70450; 71260; 74177; J1885; Q9967

== ENCOUNTER 2016-12-19 15:55 | Emergency (ER) | payer OTHER ==
[2016-12-19 15:59] VITALS: BP 110/86; PULSE 100; RESP 20; TEMP 97.7
--- NOTE | 2016-12-19 16:13 | ED ---
Psych HPI - General Chief Complaint: Psychiatric Symptoms Stated Complaint: MENTAL HEALTH Time Seen by Provider: 12/19/16 16:02 Source: patient, RN notes reviewed Mode of arrival: ambulatory - History of Present Illness Initial Comments: 36-year-old male presents emergency Department chief complaints depression suicidal ideation. Patient states that he's been having ongoing depression. Patient states is never discussed this a counselor or psychiatrist in the past. Patient states that he did overdose history of heroin and states that he has plans to kill himself. Patient states this awoke him home. Patient is tearful in the room. He denies any physical complaints other has chronic back pain. - Related Data Home Medications Medication Instructions Recorded Confirmed oxyCODONE HCL/ACETAMINOPHEN 1 tab PO TID PRN 08/11/16 12/19/16 [Percocet 10-325 mg] ALPRAZolam [Xanax] 1 mg PO TID PRN 12/04/16 12/19/16 Pregabalin [Lyrica] 75 mg PO BID 12/04/16 12/19/16 Previous Rx's Medication Instructions Recorded Cyclobenzaprine [Flexeril] 10 mg PO TID #14 tab 12/18/16 Allergies Allergy/AdvReac Type Severity Reaction Status Date / Time No Known Allergies Allergy Verified 12/19/16 16:44 Review of Systems ROS Statement: Those systems with pertinent positive or pertinent negative responses have been documented in the HPI. ROS Other: All systems not noted in ROS Statement are negative. Past Medical History Past Medical History: No Reported History Additional Past Medical History / Comment(s): herniated disc History of Any Multi-Drug Resistant Organisms: MRSA Date of last positivie culture/infection: 12/03/15 MDRO Source:: BACK Past Surgical History: No Surgical Hx Reported Additional Past Surgical History / Comment(s): left ankle pins & screws Past Psychological History: Anxiety, Depression Smoking Status: Current every day smoker Past Alcohol Use History: Occasional Past Drug Use History: Heroin, IV Drug Use General Exam Limitations: no limitations General appearance: alert, in no apparent distress Head exam: Present: atraumatic, normocephalic, normal inspection Eye exam: Present: normal appearance, PERRL, EOMI. Absent: scleral icterus, conjunctival injection, periorbital swelling ENT exam: Present: normal exam, normal oropharynx, mucous membranes moist Neck exam: Present: normal inspection. Absent: tenderness, meningismus, lymphadenopathy Respiratory exam: Present: normal lung sounds bilaterally. Absent: respiratory distress, wheezes, rales, rhonchi, stridor Cardiovascular Exam: Present: regular rate, normal rhythm, normal heart sounds. Absent: systolic murmur, diastolic murmur, rubs, gallop, clicks GI/Abdominal exam: Present: soft, normal bowel sounds. Absent: distended, tenderness, guarding, rebound, rigid Psychiatric exam: Present: depressed, other (Tearful) Skin exam: Present: warm, dry, intact, normal color. Absent: rash Course Vital Signs 12/19/16 15:58 Temperature 97.7 F Pulse Rate 100 Respiratory 20 Rate Blood Pressure 110/86 O2 Sat by Pulse 100 Oximetry Medical Decision Making - Medical Decision Making Patient was evaluated by psychiatric services. Patient will be discharged at this time, return parameters were discussed. Disposition Clinical Impression: Depression, Drug abuse Disposition: HOME SELF-CARE Condition: Stable Instructions: Depression (ED) Additional Instructions: Please return to the Emergency Department if symptoms worsen or any other concerns. Referrals: None,Stated [Primary Care Provider] - 1-2 days Time of Disposition: 18:22
== END 2016-12-19 18:47 | disposition home or self-care (01) ==
LOC: EC 15:55
DX: F32.9 Major depressive disorder, single episode, unspecified (principal); F11.10 Opioid abuse, uncomplicated; F41.9 Anxiety disorder, unspecified; F17.200 Nicotine dependence, unspecified, uncomplicated; Z79.899 Other long term (current) drug therapy
CPT/HCPCS: 82075; 99284

== ENCOUNTER 2016-12-31 04:25 | Emergency (ER) | payer OTHER ==
[2016-12-31 04:33] VITALS: BP 117/68; PULSE 100; RESP 18; TEMP 97.7
--- NOTE | 2016-12-31 05:06 | ED ---
Anxiety HPI - General Chief Complaint: Anxiety Stated Complaint: Anxiety Time Seen by Provider: 12/31/16 04:33 Source: patient Mode of arrival: EMS - History of Present Illness Initial Comments: Patient's a 36-year-old man with history of underlying anxiety. He phoned EMS tonight stating that he felt he was in a crisis. The patient relates that his father had committed suicide yesterday. He states that in addition to that an associate of his was going to stay with him and help him but when the patient fell sleep the associated reportedly stole his medications and left. MD Complaint: anxiety -: days(s) Symptoms: palpitations Place: home Previous History of Same: Yes Severity: severe Quality: constant Provoking factors: emotional stress, recent /illness of family member Improves With: nothing Worsens With: nothing - Related Data Home Medications: Home Medications Medication Instructions Recorded Confirmed oxyCODONE HCL/ACETAMINOPHEN 1 tab PO TID PRN 08/11/16 12/19/16 [Percocet 10-325 mg] ALPRAZolam [Xanax] 1 mg PO TID PRN 12/04/16 12/19/16 Pregabalin [Lyrica] 75 mg PO BID 12/04/16 12/19/16 Previous Rx's Medication Instructions Recorded Cyclobenzaprine [Flexeril] 10 mg PO TID #14 tab 12/18/16 Allergies/Adverse Reactions: Allergies Allergy/AdvReac Type Severity Reaction Status Date / Time No Known Allergies Allergy Verified 12/31/16 07:05 Review of Systems ROS Statement: Those systems with pertinent positive or pertinent negative responses have been documented in the HPI. ROS Other: All systems not noted in ROS Statement are negative. Constitutional: Denies: fever, chills Respiratory: Denies: cough, dyspnea Cardiovascular: Denies: chest pain, palpitations, syncope Gastrointestinal: Denies: abdominal pain Musculoskeletal: Denies: back pain Neurological: Denies: headache, weakness, numbness Psychiatric: Reports: anxiety, depression, suicidal thoughts. Denies: auditory hallucinations, visual hallucinations, homicidal thoughts Past Medical History Past Medical History: No Reported History Additional Past Medical History / Comment(s): herniated disc History of Any Multi-Drug Resistant Organisms: MRSA Date of last positivie culture/infection: 12/03/15 MDRO Source:: BACK Past Surgical History: No Surgical Hx Reported Additional Past Surgical History / Comment(s): left ankle pins & screws Past Psychological History: Anxiety, Depression Smoking Status: Current every day smoker Past Alcohol Use History: Occasional Past Drug Use History: Heroin, IV Drug Use General Exam General appearance: alert, in no apparent distress, anxious Head exam: Present: atraumatic, normocephalic Eye exam: Present: normal appearance. Absent: scleral icterus, conjunctival injection Respiratory exam: Present: normal lung sounds bilaterally. Absent: respiratory distress, wheezes, rales, rhonchi, stridor Cardiovascular Exam: Present: regular rate, normal rhythm, normal heart sounds. Absent: systolic murmur, diastolic murmur, rubs, gallop GI/Abdominal exam: Present: soft. Absent: distended, tenderness, guarding, rebound, mass Back exam: Present: normal inspection. Absent: CVA tenderness (R), CVA tenderness (L) Neurological exam: Present: alert Psychiatric exam: Present: depressed, anxious, suicidal ideation Skin exam: Present: warm, dry, intact, other (Needle tracks dorsum of right hand ) Course Vital Signs 12/31/16 04:26 Temperature 97.7 F Pulse Rate 100 Respiratory 18 Rate Blood Pressure 117/68 O2 Sat by Pulse 100 Oximetry Disposition Clinical Impression: Acute anxiety Disposition: HOME SELF-CARE Condition: Fair Instructions: Generalized Anxiety Disorder (ED) Referrals: None,Stated [Primary Care Provider] - 1-2 days
[2016-12-31] MEDS ORDERED: METHADONE 10 MG TAB PO STA (05:21)
[2016-12-31] MEDS ORDERED: METHADONE 5 MG TAB PO STA (06:36)
== END 2016-12-31 07:54 | disposition home or self-care (01) ==
LOC: EC 04:25
DX: F41.9 Anxiety disorder, unspecified (principal); R45.851 Suicidal ideations; F32.9 Major depressive disorder, single episode, unspecified; F17.200 Nicotine dependence, unspecified, uncomplicated; Z86.14 Personal history of Methicillin resistant Staphylococcus aureus infection; Z79.899 Other long term (current) drug therapy
CPT/HCPCS: 99284; S0109

== ENCOUNTER 2017-01-05 00:54 | Emergency (ER) | payer OTHER ==
[2017-01-05 02:32] LABS: Basophils # (A) 0.1 k/uL (0-0.2); Basophils % (A) 1 %; CH 31.5; CHCM 33.6; Eosinophils # (A) 0.3 k/uL (0-0.7); Eosinophils % (A) 2 %; HCT 50.2 % (39.0-53.0); HDW 2.51; Luc # (Auto) 0.16; Luc % (Auto) 1; Lymphocytes # (A) 1.7 k/uL (1.0-4.8); Lymphocytes % (A) 14 %; MCH 30.1 pg (25.0-35.0); MCV 94.1 fL (80.0-100.0); Mean Platelet Volume 7.4; Monocytes # (A) 0.4 k/uL (0-1.0); Monocytes % (A) 3 %; Neutrophils % (A) 78 %; RBC 5.33 m/uL (4.30-5.90); RDW 13.5 % (11.5-15.5); WBC 11.5 k/uL (3.8-10.6); WBC (Perox) 10.86
[2017-01-05 02:51] LABS: Alcohol <10 mg/dL; Amylase 38 U/L (30-110); Anion Gap 11 mmol/L; Blood Urea Nitrogen 11 mg/dL (9-20); Calcium 9.9 mg/dL (8.4-10.2); Carbon Dioxide 27 mmol/L (22-30); Chloride 100 mmol/L (98-107); Glucose 91 mg/dL (74-99); Non-African American GFR(MDRD) >60 (>60 ml/min/1.73 sqM); Sodium 138 mmol/L (137-145)
[2017-01-05 02:52] LABS: Potassium 3.5 mmol/L (3.5-5.1)
--- NOTE | 2017-01-05 02:58 | ED ---
Medical Clearance HPI - General Chief complaint: Medical Clearance Stated complaint: [facility]fp Clearance Time Seen by Provider: 01/05/17 01:15 Source: patient Mode of arrival: ambulatory - History of Present Illness Initial comments: Resection is old male brought in by police stating that he was driving under influence of substance which was affecting his cognition. He himself looks quite sleepy and he said he has been using his prescription drugs as prescribed. Denies any USE today he said he did use some heroin yesterday since he ran out of his medications. He denies any headache no neck stiffness is complaining about the chest pain, which is ongoing for last 6 months in also complaining about abdominal pain which is ongoing for about a year. Denies any nausea any vomiting no diarrhea no constipation no frequency urgency dysuria no sinus symptoms of TIA or CVA Home medications: Home Medications Medication Instructions Recorded Confirmed oxyCODONE HCL/ACETAMINOPHEN 1 tab PO TID PRN 08/11/16 01/05/17 [Percocet 10-325 mg] ALPRAZolam [Xanax] 2 mg PO TID PRN 12/04/16 01/05/17 Pregabalin [Lyrica] 75 mg PO BID 12/04/16 01/05/17 Previous Rx's Medication Instructions Recorded Cyclobenzaprine [Flexeril] 10 mg PO TID #14 tab 12/18/16 Allergies/Adverse reactions: Allergies Allergy/AdvReac Type Severity Reaction Status Date / Time No Known Allergies Allergy Verified 01/05/17 01:11 Review of Systems ROS Statement: Those systems with pertinent positive or pertinent negative responses have been documented in the HPI. ROS Other: All systems not noted in ROS Statement are negative. Past Medical History Past Medical History: No Reported History Additional Past Medical History / Comment(s): herniated disc History of Any Multi-Drug Resistant Organisms: MRSA Date of last positivie culture/infection: 12/03/15 MDRO Source:: BACK Past Surgical History: No Surgical Hx Reported Additional Past Surgical History / Comment(s): left ankle pins & screws Past Psychological History: Anxiety, Depression Smoking Status: Current every day smoker Past Alcohol Use History: Occasional Past Drug Use History: Heroin, IV Drug Use General Exam - General Exam Comments Initial Comments: General: The patient is awake and alert, in no distress, and does not appear acutely ill. He does look quite sleepy but GCS is 15 Skin: Skin is warm and dry and no rashes or lesions are noted. Eye: Pupils are equal, round and reactive to light, extra-ocular movements are intact; there is normal conjunctiva bilaterally. Ears, nose, mouth and throat: There are moist mucous membranes and no oral lesions. Neck: The neck is supple, there is no tenderness or JVD. Cardiovascular: There is a regular rate and rhythm. No murmur, rub or gallop is appreciated. Respiratory: To auscultation bilateral, no wheezing no rhonchi no distress respiratory heath noticed Gastrointestinal: Soft, non-distended, non-tender abdomen without masses or organomegaly noted. There is no rebound or guarding present. Bowel sounds are unremarkable. Back: There is no tenderness to palpation in the midline. There is no obvious deformity. Musculoskeletal: Normal ROM, no tenderness, There is no pedal edema. There is no calf tenderness or swelling. No cords were appreciated. Neurological: CN II-XII intact, Cranial nerves III through XII are intact. There are no obvious motor or sensory deficits. Coordination appears grossly intact. Speech is normal. Psychiatric: Cooperative, appropriate mood & affect, normal judgment. Limitations: no limitations Course Vital Signs 01/05/17 01:07 Temperature 97.8 F Pulse Rate 95 Respiratory 16 Rate Blood Pressure 120/70 O2 Sat by Pulse 96 Oximetry - Reevaluation(s) Reevaluation #1: 01/05/17 02:57 EKG is a normal sinus rhythm ventricular rate is 84 NV interval is 162 QRS duration is 88 QT/QTc is 382/4 throughout 50 mL EKG does not reveal any ST elevation or ST depression 01/05/17 03:29 She was reassessed 320 9 in the morning, his troponin is CBC his compressive metabolic panel and EKG looks absolutely normal, patient refused the chest x- ray and abdominal films and 3:30 he is medically cleared to go with the police officers Medical Decision Making - Lab Data Result diagrams: 01/05/17 02:24 01/05/17 02:24 Lab Results 01/05/17 01/05/17 01/05/17 Range/Units 02:24 02:24 02:24 WBC 11.5 H (3.8-10.6) k/uL RBC 5.33 (4.30-5.90) m/uL Hgb 16.0 (13.0-17.5) gm/dL Hct 50.2 (39.0-53.0) % MCV 94.1 (80.0-100.0) fL MCH 30.1 (25.0-35.0) pg MCHC 32.0 (31.0-37.0) g/dL RDW 13.5 (11.5-15.5) % Plt Count 270 (150-450) k/uL Neutrophils % 78 % Lymphocytes % 14 % Monocytes % 3 % Eosinophils % 2 % Basophils % 1 % Neutrophils # 9.0 H (1.3-7.7) k/uL Lymphocytes # 1.7 (1.0-4.8) k/uL Monocytes # 0.4 (0-1.0) k/uL Eosinophils # 0.3 (0-0.7) k/uL Basophils # 0.1 (0-0.2) k/uL Sodium 138 (137-145) mmol/L Potassium 3.5 (3.5-5.1) mmol/L Chloride 100 (98-107) mmol/L Carbon Dioxide 27 (22-30) mmol/L Anion Gap 11 mmol/L BUN 11 (9-20) mg/dL Creatinine 0.90 (0.66-1.25) mg/dL Est GFR (MDRD) Af Amer >60 (>60 ml/min/1.73 sqM) Est GFR (MDRD) Non-Af >60 (>60 ml/min/1.73 sqM) Glucose 91 (74-99) mg/dL Calcium 9.9 (8.4-10.2) mg/dL Troponin I <0.012 (0.000-0.034) ng/mL Amylase 38 (30-110) U/L Lipase 51 (23-300) U/L Serum Alcohol <10 mg/dL Disposition Clinical Impression: Chest pain, Abdominal pain, Medical clearance for incarceration Disposition: HOME SELF-CARE Referrals: None,Stated [Primary Care Provider] - 1-2 days
[2017-01-05 03:38] VITALS: BP 116/73; PULSE 89; RESP 18; TEMP 98.7
== END 2017-01-05 03:36 | disposition home or self-care (01) ==
LOC: EC 00:54
DX: R07.9 Chest pain, unspecified (principal); R10.9 Unspecified abdominal pain; Z02.89 Encounter for other administrative examinations; F17.200 Nicotine dependence, unspecified, uncomplicated; Z79.899 Other long term (current) drug therapy
CPT/HCPCS: 36415; 80048; 80320; 82075; 82150; 83690; 84484; 85025; 93005; 99283

== ENCOUNTER 2019-08-09 14:11 | Emergency (ER) | payer OTHER ==
[2019-08-09 14:20] VITALS: BP 118/84; PULSE 89; RESP 16; TEMP 97.5
--- NOTE | 2019-08-09 14:40 | ED ---
General Adult HPI - General Chief complaint: Overdose Stated complaint: overdose Time Seen by Provider: 08/09/19 14:15 Source: patient, EMS, RN notes reviewed, old records reviewed Mode of arrival: EMS Limitations: no limitations - History of Present Illness Initial comments: This is a 39-year-old male who presents emergency Department after he used her oin today. Patient states he overdosed and was given Narcan. Patient states currently he has no complaints and he would like to leave immediately. Patient denies any difficulty breathing or shortness of breath per patient denies any headache patient denies any chest pain. Patient states little earlier he was mildly nauseated but he is no longer nauseated. - Related Data Home Medications Medication Instructions Recorded Confirmed oxyCODONE HCL/ACETAMINOPHEN 1 tab PO TID PRN 08/11/16 01/05/17 [Percocet 10-325 mg] ALPRAZolam [Xanax] 2 mg PO TID PRN 12/04/16 01/05/17 Pregabalin [Lyrica] 75 mg PO BID 12/04/16 01/05/17 Previous Rx's Medication Instructions Recorded Cyclobenzaprine [Flexeril] 10 mg PO TID #14 tab 12/18/16 Allergies Allergy/AdvReac Type Severity Reaction Status Date / Time No Known Allergies Allergy Verified 01/05/17 01:11 Review of Systems ROS Statement: Those systems with pertinent positive or pertinent negative responses have been documented in the HPI. ROS Other: All systems not noted in ROS Statement are negative. Past Medical History Past Medical History: No Reported History Additional Past Medical History / Comment(s): herniated disc History of Any Multi-Drug Resistant Organisms: MRSA Date of last positivie culture/infection: 12/03/15 MDRO Source:: BACK Past Surgical History: No Surgical Hx Reported Additional Past Surgical History / Comment(s): left ankle pins & screws Past Psychological History: Anxiety, Depression Smoking Status: Current every day smoker Past Alcohol Use History: Occasional Past Drug Use History: Heroin, IV Drug Use General Exam - General Exam Comments Initial Comments: GENERAL: Patient is well-developed and well-nourished. Patient is nontoxic and well- hydrated and is in no acute distress. ENT: Neck is soft and supple. No significant lymphadenopathy is noted. Oropharynx is clear. Moist mucous membranes. Neck has full range of motion without eliciting any pain. EYES: The sclera were anicteric and conjunctiva were pink and moist. Extraocular movements were intact and pupils were equal round and reactive to light. Eyelids were unremarkable. PULMONARY: Unlabored respirations. Good breath sounds bilaterally. No audible rales rhonchi or wheezing was noted. CARDIOVASCULAR: There is a regular rate and rhythm without any murmurs gallops or rubs. ABDOMEN: Soft and nontender with normal bowel sounds. SKIN: Skin is clear with no lesions or rashes and otherwise unremarkable. NEUROLOGIC: Patient is alert and oriented x3. Cranial nerves II through XII are grossly intact. Motor and sensory are also intact. Normal speech, volume and content. Symmetrical smile. MUSCULOSKELETAL: Normal extremities with adequate strength and full range of motion. LYMPHATICS: No significant lymphadenopathy is noted PSYCHIATRIC: Normal psychiatric evaluation. Limitations: no limitations Course Vital Signs 08/09/19 14:16 Temperature 97.5 F L Pulse Rate 89 Respiratory 16 Rate Blood Pressure 118/84 O2 Sat by Pulse 99 Oximetry Medical Decision Making - Medical Decision Making I indicated the patient that I wanted to watch him in the emergency department for a little bit to make sure that the Narcan didn't wear off and he became obtunded again patient absolutely refused stating he wanted to leave immediately. Disposition Clinical Impression: Heroin overdose Disposition: HOME SELF-CARE Instructions (If sedation given, give patient instructions): Adult Overdose (ED) Additional Instructions: Patient should stop doing heroin Is patient prescribed a controlled substance at d/c from ED?: No Referrals: None,Stated [Primary Care Provider] - 1-2 days Time of Disposition: 14:40
== END 2019-08-09 14:46 | disposition home or self-care (01) ==
LOC: EC 14:11
DX: T40.1X1A Poisoning by heroin, accidental (unintentional), initial encounter (principal); F17.200 Nicotine dependence, unspecified, uncomplicated; Z86.14 Personal history of Methicillin resistant Staphylococcus aureus infection; Z79.899 Other long term (current) drug therapy; Z87.39 Personal history of other diseases of the musculoskeletal system and connective tissue; Z96.698 Presence of other orthopedic joint implants; Z53.20 Procedure and treatment not carried out because of patient's decision for unspecified reasons
CPT/HCPCS: 99284

== ENCOUNTER 2020-02-06 17:03 | Emergency (ER) | payer OTHER ==
[2020-02-06 17:14] VITALS: BP 133/78; PULSE 57; RESP 16; TEMP 97.3
--- NOTE | 2020-02-06 17:39 | ED ---
General Adult HPI - General Chief complaint: Extremity Problem,Nontraumatic Stated complaint: hand injury Time Seen by Provider: 02/06/20 17:15 Source: patient, RN notes reviewed Mode of arrival: ambulatory - History of Present Illness Initial comments: 39-year-old male presents to the emergency room for a chief complaint of "can't move wrist." Patient reports that a few days ago he was sleeping in his hand was tingling when he woke up. States he could not extend his wrist. States that this has persisted. He still feels like his hand is somewhat tingly. Patient can move all his fingers. He denies any injuries to the wrist. He denies weakness elsewhere in the upper or lower extremity.Patient has no other complaints at this time including shortness of breath, chest pain, abdominal pain, nausea or vomiting, headache, or visual changes. - Related Data Home Medications Medication Instructions Recorded Confirmed oxyCODONE HCL/ACETAMINOPHEN 1 tab PO TID PRN 08/11/16 01/05/17 [Percocet 10-325 mg] ALPRAZolam [Xanax] 2 mg PO TID PRN 12/04/16 01/05/17 Pregabalin [Lyrica] 75 mg PO BID 12/04/16 01/05/17 Previous Rx's Medication Instructions Recorded Cyclobenzaprine [Flexeril] 10 mg PO TID #14 tab 12/18/16 Allergies Allergy/AdvReac Type Severity Reaction Status Date / Time No Known Allergies Allergy Verified 02/06/20 17:14 Review of Systems ROS Statement: Those systems with pertinent positive or pertinent negative responses have been documented in the HPI. ROS Other: All systems not noted in ROS Statement are negative. Past Medical History Past Medical History: No Reported History Additional Past Medical History / Comment(s): herniated disc History of Any Multi-Drug Resistant Organisms: MRSA Date of last positivie culture/infection: 12/03/15 MDRO Source:: BACK Past Surgical History: No Surgical Hx Reported Additional Past Surgical History / Comment(s): left ankle pins & screws Past Psychological History: Anxiety, Depression Smoking Status: Current every day smoker Past Alcohol Use History: Occasional Past Drug Use History: Heroin, IV Drug Use General Exam - General Exam Comments Initial Comments: Left upper extremity: Patient is able to flex the left wrist however cannot extend the left wrist. He can move all fingers. He has sensation in all fingers. Radial pulses 2+. Capillary refill is less than 2 seconds in the left hand. General appearance: alert, in no apparent distress Head exam: Present: atraumatic, normocephalic, normal inspection Eye exam: Present: normal appearance, PERRL, EOMI. Absent: scleral icterus, conjunctival injection, periorbital swelling ENT exam: Present: normal exam, mucous membranes moist Neck exam: Present: normal inspection. Absent: tenderness, meningismus, lymphadenopathy Respiratory exam: Present: normal lung sounds bilaterally. Absent: respiratory distress, wheezes, rales, rhonchi, stridor Cardiovascular Exam: Present: regular rate, normal rhythm, normal heart sounds. Absent: systolic murmur, diastolic murmur, rubs, gallop, clicks Neurological exam: Present: alert, oriented X3, normal gait, other (GCS 15) Course Vital Signs 02/06/20 17:11 Temperature 97.3 F L Pulse Rate 57 L Respiratory 16 Rate Blood Pressure 133/78 O2 Sat by Pulse 95 Oximetry Medical Decision Making - Medical Decision Making Patient presents for Tuesday night palsy. This has been ongoing for a few days. States it is intact in the left hand. Patient is not able to extend his left wrist, he is able to move all fingers. Patient was splinted in a 60 cock up Wrist splint. He will follow up with orthopedics. I did stress this. He will return for any worsening symptoms. Disposition Clinical Impression: Radial nerve palsy Disposition: HOME SELF-CARE Condition: Good Instructions (If sedation given, give patient instructions): Radial Nerve Palsy (ED) Additional Instructions: Please follow up with orthopedics by calling tomorrow for at least appointment. Splint dry. Return here to the emergency room for any worsening symptoms. Is patient prescribed a controlled substance at d/c from ED?: No Referrals: Navjot Kim DO [Primary Care Provider] - 1-2 days Jona Lackey MD [STAFF PHYSICIAN] - 1-2 days Time of Disposition: 17:38
== END 2020-02-06 17:43 | disposition home or self-care (01) ==
LOC: EC 17:03
DX: G56.32 Lesion of radial nerve, left upper limb (principal); F41.9 Anxiety disorder, unspecified; F32.9 Major depressive disorder, single episode, unspecified; F17.200 Nicotine dependence, unspecified, uncomplicated; Z79.899 Other long term (current) drug therapy; Z87.39 Personal history of other diseases of the musculoskeletal system and connective tissue; Z98.890 Other specified postprocedural states; Z86.14 Personal history of Methicillin resistant Staphylococcus aureus infection
CPT/HCPCS: 29125; 99283

== ENCOUNTER 2020-04-05 08:38 | Emergency (ER) | payer OTHER ==
[2020-04-05 08:47] VITALS: BP 132/84; PULSE 90; RESP 16; TEMP 98
--- NOTE | 2020-04-05 09:03 | ED ---
Extremity Problem HPI - General Chief complaint: Extremity Problem,Nontraumatic Stated complaint: hand numbness Time Seen by Provider: 04/05/20 08:49 Source: patient, family, RN notes reviewed Mode of arrival: ambulatory Limitations: no limitations - History of Present Illness Initial comments: 40-year-old male presents emergency Department chief complaint of abscess to his right forearm, left forearm and also left hand numbness and decreased movement. Patient was seen here 2 months ago for his left wrist and states he was diagnosed with radial nerve palsy. Patient states that he was in a splint and was advised to call orthopedics though he never followed up. Patient states that has not improved. Patient is right-hand dominant. He states he does inject heroin on a regular basis. Patient states he had an abscess rupture on his right forearm which is improving. - Related Data Home Medications Medication Instructions Recorded Confirmed oxyCODONE HCL/ACETAMINOPHEN 1 tab PO TID PRN 08/11/16 01/05/17 [Percocet 10-325 mg] ALPRAZolam [Xanax] 2 mg PO TID PRN 12/04/16 01/05/17 Pregabalin [Lyrica] 75 mg PO BID 12/04/16 01/05/17 Previous Rx's Medication Instructions Recorded Cyclobenzaprine [Flexeril] 10 mg PO TID #14 tab 12/18/16 Sulfamethox-Tmp 800-160Mg [Bactrim 1 each PO Q12HR #20 tab 04/05/20 Ds] Allergies Allergy/AdvReac Type Severity Reaction Status Date / Time No Known Allergies Allergy Verified 04/05/20 08:47 Review of Systems ROS Statement: Those systems with pertinent positive or pertinent negative responses have been documented in the HPI. ROS Other: All systems not noted in ROS Statement are negative. Past Medical History Past Medical History: No Reported History Additional Past Medical History / Comment(s): herniated disc History of Any Multi-Drug Resistant Organisms: MRSA Date of last positivie culture/infection: 12/03/15 MDRO Source:: BACK Past Surgical History: No Surgical Hx Reported Additional Past Surgical History / Comment(s): left ankle pins & screws Past Psychological History: Anxiety, Depression Smoking Status: Current every day smoker Past Alcohol Use History: Occasional Past Drug Use History: Heroin, IV Drug Use General Exam Limitations: no limitations General appearance: alert, in no apparent distress Head exam: Present: atraumatic, normocephalic, normal inspection Eye exam: Present: normal appearance, PERRL, EOMI. Absent: scleral icterus, conjunctival injection, periorbital swelling ENT exam: Present: mucous membranes moist Respiratory exam: Present: normal lung sounds bilaterally. Absent: respiratory distress, wheezes, rales, rhonchi, stridor Cardiovascular Exam: Present: regular rate, normal rhythm, normal heart sounds. Absent: systolic murmur, diastolic murmur, rubs, gallop, clicks Extremities exam: Present: other (Left hand strength 3/5, patient has essentially no risk flexion extension. Patient has radial nerve palsy, cap refill less than 2 seconds radial pulses are equal bilaterally patient has multiple sores noted on the upper extremities, there is an open draining abscess of right forearm) Course Vital Signs 04/05/20 08:44 Temperature 98.0 F Pulse Rate 90 Respiratory 16 Rate Blood Pressure 132/84 O2 Sat by Pulse 100 Oximetry Medical Decision Making - Medical Decision Making Patient has radial nerve palsy which was diagnosed 2 months ago and patient will follow-up. Patient advised that she should follow-up with orthopedics and was instructed that he should stop using heroine patient we given antibiotics for his abscess which has ruptured. Disposition Clinical Impression: Abscess of right forearm, Left radial nerve palsy Disposition: HOME SELF-CARE Condition: Stable Instructions (If sedation given, give patient instructions): Abscess (ED) Additional Instructions: Please return to the Emergency Department if symptoms worsen or any other concerns. Prescriptions: Sulfamethox-Tmp 800-160Mg [Bactrim Ds] 1 each PO Q12HR #20 tab Is patient prescribed a controlled substance at d/c from ED?: No Referrals: Navjot Kim DO [Primary Care Provider] - 1-2 days eZb Fried DO [Doctor of Osteopathic Medicine] - 1-2 days Time of Disposition: 09:03
== END 2020-04-05 09:16 | disposition home or self-care (01) ==
LOC: EC 08:38
DX: G56.32 Lesion of radial nerve, left upper limb (principal); L02.413 Cutaneous abscess of right upper limb; L02.512 Cutaneous abscess of left hand; F17.200 Nicotine dependence, unspecified, uncomplicated; F32.9 Major depressive disorder, single episode, unspecified; F41.9 Anxiety disorder, unspecified; F11.90 Opioid use, unspecified, uncomplicated; Z79.899 Other long term (current) drug therapy; Z86.14 Personal history of Methicillin resistant Staphylococcus aureus infection
CPT/HCPCS: 99283

== ENCOUNTER 2020-04-10 12:49 | Emergency (ER) | payer OTHER ==
[2020-04-10 13:04] VITALS: BP 123/83; PULSE 94; RESP 20; TEMP 98
--- NOTE | 2020-04-10 13:07 | ED ---
Skin/Abscess/FB HPI - General Chief complaint: Skin/Abscess/Foreign Body Stated complaint: Bugs on him Time Seen by Provider: 04/10/20 13:06 Source: patient, RN notes reviewed Mode of arrival: ambulatory Limitations: no limitations - History of Present Illness Initial comments: 40-year-old male presents emergency Department with chief complaint of bugs on him. Patient states that he started using drugs again because he states that he had bumped on. Patient states that he sees him come out of his sores. He does admit that he uses heroin but states it may be mixed with methamphetamines. Patient denies any fever or Chills. Patient was recent seen for an abscess which he states is improving. Patient denies any other complaints. - Related Data Home Medications Medication Instructions Recorded Confirmed oxyCODONE HCL/ACETAMINOPHEN 1 tab PO TID PRN 08/11/16 04/10/20 [Percocet 10-325 mg] ALPRAZolam [Xanax] 2 mg PO TID PRN 12/04/16 04/10/20 Pregabalin [Lyrica] 75 mg PO BID 12/04/16 04/10/20 Previous Rx's Medication Instructions Recorded Cyclobenzaprine [Flexeril] 10 mg PO TID #14 tab 12/18/16 Sulfamethox-Tmp 800-160Mg [Bactrim 1 each PO Q12HR #20 tab 04/05/20 Ds] Cephalexin [Keflex] 500 mg PO Q6HR #40 cap 04/10/20 Permethrin 5% Cream [Elimite] 1 applic TOPICAL ONCE #60 gram 04/10/20 hydrOXYzine HCL [Atarax] 25 mg PO TID PRN #15 tab 04/10/20 Allergies Allergy/AdvReac Type Severity Reaction Status Date / Time No Known Allergies Allergy Verified 04/10/20 13:04 Review of Systems ROS Statement: Those systems with pertinent positive or pertinent negative responses have been documented in the HPI. ROS Other: All systems not noted in ROS Statement are negative. Past Medical History Past Medical History: No Reported History Additional Past Medical History / Comment(s): herniated disc History of Any Multi-Drug Resistant Organisms: MRSA Date of last positivie culture/infection: 12/03/15 MDRO Source:: BACK Past Surgical History: No Surgical Hx Reported Additional Past Surgical History / Comment(s): left ankle pins & screws Past Psychological History: Anxiety, Depression Smoking Status: Current every day smoker Past Alcohol Use History: Occasional Past Drug Use History: Heroin, IV Drug Use General Exam Limitations: no limitations General appearance: alert, in no apparent distress Head exam: Present: atraumatic, normocephalic, normal inspection Neck exam: Present: normal inspection. Absent: tenderness, meningismus, lymphadenopathy Respiratory exam: Present: normal lung sounds bilaterally. Absent: respiratory distress, wheezes, rales, rhonchi, stridor Cardiovascular Exam: Present: regular rate, normal rhythm, normal heart sounds. Absent: systolic murmur, diastolic murmur, rubs, gallop, clicks Extremities exam: Present: other (Multiple sores noted on the upper extremities, no visible) Neurological exam: Present: alert Skin exam: Present: warm, dry, intact, normal color. Absent: rash Course Vital Signs 04/10/20 12:57 Temperature 98.0 F Pulse Rate 94 Respiratory 20 Rate Blood Pressure 123/83 O2 Sat by Pulse 99 Oximetry Medical Decision Making - Medical Decision Making Patient has multiple open sores no visible bugs noted. Patient we treated for possible scabies, we treated for superficial infections return parameters were discussed. Disposition Clinical Impression: Skin sore Disposition: HOME SELF-CARE Condition: Stable Instructions (If sedation given, give patient instructions): Acute Wound Care (ED) Additional Instructions: Please return to the Emergency Department if symptoms worsen or any other concerns. Prescriptions: hydrOXYzine HCL [Atarax] 25 mg PO TID PRN #15 tab PRN Reason: Itching Permethrin 5% Cream [Elimite] 1 applic TOPICAL ONCE #60 gram Cephalexin [Keflex] 500 mg PO Q6HR #40 cap Is patient prescribed a controlled substance at d/c from ED?: No Referrals: Navjot Kim DO [Primary Care Provider] - 1-2 days Time of Disposition: 13:07
== END 2020-04-10 13:15 | disposition home or self-care (01) ==
LOC: EC 12:49
DX: L98.8 Other specified disorders of the skin and subcutaneous tissue (principal); F41.9 Anxiety disorder, unspecified; F32.9 Major depressive disorder, single episode, unspecified; F17.200 Nicotine dependence, unspecified, uncomplicated; Z79.899 Other long term (current) drug therapy; Z86.14 Personal history of Methicillin resistant Staphylococcus aureus infection
CPT/HCPCS: 99283

== ENCOUNTER 2020-07-11 08:38 | Emergency (ER) | payer OTHER ==
[2020-07-11 08:43] VITALS: BP 137/89; PULSE 96; RESP 20; TEMP 97.9
--- NOTE | 2020-07-11 09:09 | ED ---
General Adult HPI - General Chief complaint: Skin/Abscess/Foreign Body Stated complaint: Scabies Source: patient, RN notes reviewed Mode of arrival: ambulatory - History of Present Illness Initial comments: 40-year-old male presents to the emergency room for a chief complaint of rash. Patient states he has had a rash for a couple months now. States he was treated for scabies which did help however his symptoms came back a couple weeks ago. Patient reports that is very itchy and he is taking at his skin. Patient does admit to methamphetamine and heroin use. Patient denies fevers or chills. Den ies joint pain.Patient has no other complaints at this time including shortness of breath, chest pain, abdominal pain, nausea or vomiting, headache, or visual changes. - Related Data Home Medications Medication Instructions Recorded Confirmed oxyCODONE HCL/ACETAMINOPHEN 1 tab PO TID PRN 08/11/16 04/10/20 [Percocet 10-325 mg] ALPRAZolam [Xanax] 2 mg PO TID PRN 12/04/16 04/10/20 Pregabalin [Lyrica] 75 mg PO BID 12/04/16 04/10/20 Previous Rx's Medication Instructions Recorded Cyclobenzaprine [Flexeril] 10 mg PO TID #14 tab 12/18/16 Sulfamethox-Tmp 800-160Mg [Bactrim 1 each PO Q12HR #20 tab 04/05/20 Ds] Cephalexin [Keflex] 500 mg PO Q6HR #40 cap 04/10/20 Permethrin 5% Cream [Elimite] 1 applic TOPICAL ONCE #60 gram 04/10/20 hydrOXYzine HCL [Atarax] 25 mg PO TID PRN #15 tab 04/10/20 Permethrin 5% Cream [Elimite] 1 applic TOPICAL ONCE #1 tube 07/11/20 Allergies Allergy/AdvReac Type Severity Reaction Status Date / Time No Known Allergies Allergy Verified 07/11/20 08:42 Review of Systems ROS Statement: Those systems with pertinent positive or pertinent negative responses have been documented in the HPI. ROS Other: All systems not noted in ROS Statement are negative. Past Medical History Past Medical History: No Reported History Additional Past Medical History / Comment(s): herniated disc History of Any Multi-Drug Resistant Organisms: MRSA Date of last positivie culture/infection: 12/03/15 MDRO Source:: BACK Past Surgical History: No Surgical Hx Reported Additional Past Surgical History / Comment(s): left ankle pins & screws Past Psychological History: Anxiety, Depression Smoking Status: Current every day smoker Past Alcohol Use History: Occasional Past Drug Use History: Heroin, IV Drug Use, Methamphetamine General Exam General appearance: alert, in no apparent distress Head exam: Present: atraumatic, normocephalic, normal inspection Eye exam: Present: normal appearance, PERRL. Absent: EOMI, scleral icterus, conjunctival injection ENT exam: Present: normal exam, mucous membranes moist Neck exam: Present: normal inspection, full ROM. Absent: tenderness Respiratory exam: Present: normal lung sounds bilaterally. Absent: respiratory distress, wheezes Cardiovascular Exam: Present: regular rate, normal rhythm, normal heart sounds GI/Abdominal exam: Present: soft, normal bowel sounds. Absent: distended, tenderness Skin exam: Present: other (Patient has small erythematous scabbing lesions noted on the arms and legs.) Course Vital Signs 07/11/20 08:41 Temperature 97.9 F Pulse Rate 96 Respiratory 20 Rate Blood Pressure 137/89 O2 Sat by Pulse 99 Oximetry Medical Decision Making - Medical Decision Making Vitals are stable. Patient is well-appearing. Patient has small erythematous scabbing lesions that he is concerned her scabies. He states that the treatment worked in the past for him. We will treat patient with permethrin. I also discussed that his methamphetamine use can cause similar symptoms of itching and skin picking and recommended he refrain. He will return for any worsening symptoms. Disposition Clinical Impression: Rash, History of methamphetamine use Disposition: HOME SELF-CARE Condition: Good Instructions (If sedation given, give patient instructions): Scabies (ED) Additional Instructions: Please use cream as directed. Refrain from doing methamphetamine as this may cause similar symptoms. Please follow-up with your doctor for a recheck. Retu rn for any worsening symptoms. Prescriptions: Permethrin 5% Cream [Elimite] 1 applic TOPICAL ONCE #1 tube Is patient prescribed a controlled substance at d/c from ED?: No Referrals: Barry Anand [STAFF PHYSICIAN] - 1-2 days Time of Disposition: 09:07
== END 2020-07-11 09:15 | disposition home or self-care (01) ==
LOC: EC 08:38
DX: R21 Rash and other nonspecific skin eruption (principal); F15.90 Other stimulant use, unspecified, uncomplicated; F17.200 Nicotine dependence, unspecified, uncomplicated; F11.90 Opioid use, unspecified, uncomplicated; F41.9 Anxiety disorder, unspecified; F32.9 Major depressive disorder, single episode, unspecified; Z79.899 Other long term (current) drug therapy; Z98.890 Other specified postprocedural states; Z87.76 Personal history of (corrected) congenital malformations of integument, limbs and musculoskeletal system
CPT/HCPCS: 99282

== ENCOUNTER 2020-08-06 12:07 | Emergency (ER) | payer OTHER ==
[2020-08-06 12:31] VITALS: BP 130/85; PULSE 79; RESP 20; TEMP 98.1
--- NOTE | 2020-08-06 12:31 | ED ---
General Adult HPI - General Stated complaint: med refill-revisit Time Seen by Provider: 08/06/20 12:25 Source: patient, RN notes reviewed Mode of arrival: ambulatory Limitations: no limitations - History of Present Illness Initial comments: 40-year-old male presents emergency Department chief complaint of possible scabies. Patient was treated recently states it is improved somewhat states has not completely resolved. Patient states he notices his eyebrows, extremities's. Patient states it is itching. No other complaints noted. No difficulty breathing or difficulty swallowing. - Related Data Home Medications Medication Instructions Recorded Confirmed oxyCODONE HCL/ACETAMINOPHEN 1 tab PO TID PRN 08/11/16 04/10/20 [Percocet 10-325 mg] ALPRAZolam [Xanax] 2 mg PO TID PRN 12/04/16 04/10/20 Pregabalin [Lyrica] 75 mg PO BID 12/04/16 04/10/20 Previous Rx's Medication Instructions Recorded Cyclobenzaprine [Flexeril] 10 mg PO TID #14 tab 12/18/16 Sulfamethox-Tmp 800-160Mg [Bactrim 1 each PO Q12HR #20 tab 04/05/20 Ds] Cephalexin [Keflex] 500 mg PO Q6HR #40 cap 04/10/20 hydrOXYzine HCL [Atarax] 25 mg PO TID PRN #15 tab 04/10/20 Permethrin 5% Cream [Elimite] 1 applic TOPICAL ONCE #1 tube 07/11/20 Permethrin 5% Cream [Elimite] 1 applic TOPICAL ONCE #60 gram 08/06/20 Allergies Allergy/AdvReac Type Severity Reaction Status Date / Time No Known Allergies Allergy Verified 07/11/20 08:42 Review of Systems ROS Statement: Those systems with pertinent positive or pertinent negative responses have been documented in the HPI. ROS Other: All systems not noted in ROS Statement are negative. Past Medical History Past Medical History: No Reported History Additional Past Medical History / Comment(s): herniated disc History of Any Multi-Drug Resistant Organisms: MRSA Date of last positivie culture/infection: 12/03/15 MDRO Source:: BACK Past Surgical History: No Surgical Hx Reported Additional Past Surgical History / Comment(s): left ankle pins & screws Past Psychological History: Anxiety, Depression Smoking Status: Current every day smoker Past Alcohol Use History: Occasional Past Drug Use History: Heroin, IV Drug Use, Methamphetamine General Exam General appearance: alert, in no apparent distress Head exam: Present: atraumatic, normocephalic, normal inspection ENT exam: Present: normal exam, normal oropharynx, mucous membranes moist Neck exam: Present: normal inspection. Absent: tenderness, meningismus, lymphadenopathy Respiratory exam: Present: normal lung sounds bilaterally. Absent: respiratory distress, wheezes, rales, rhonchi, stridor Cardiovascular Exam: Present: regular rate, normal rhythm, normal heart sounds. Absent: systolic murmur, diastolic murmur, rubs, gallop, clicks Neurological exam: Present: alert, oriented X3 Skin exam: Present: warm, dry, intact, normal color, rash Medical Decision Making - Medical Decision Making Patient given prescription of permethrin. Return parameters discussed. Disposition Clinical Impression: Scabies Disposition: HOME SELF-CARE Condition: Stable Instructions (If sedation given, give patient instructions): Scabies (ED) Additional Instructions: Please return to the Emergency Department if symptoms worsen or any other concerns. Prescriptions: Permethrin 5% Cream [Elimite] 1 applic TOPICAL ONCE #60 gram Is patient prescribed a controlled substance at d/c from ED?: No Referrals: None,Stated [Primary Care Provider] - 1-2 days Time of Disposition: 12:31
== END 2020-08-06 12:38 | disposition home or self-care (01) ==
LOC: EC 12:07
DX: B86 Scabies (principal); F41.9 Anxiety disorder, unspecified; F32.9 Major depressive disorder, single episode, unspecified; F17.200 Nicotine dependence, unspecified, uncomplicated
CPT/HCPCS: 99282

== ENCOUNTER 2020-08-23 00:41 | Emergency (ER) | payer OTHER ==
[2020-08-23 00:46] VITALS: BP 125/82; PULSE 95; RESP 20; TEMP 98
[2020-08-23] MEDS ORDERED: LIDOCAINE 1% INJ 10MG/ML (20 ML MDV) SQ ONE (03:02)
--- NOTE | 2020-08-23 03:48 | ED ---
Skin/Abscess/FB HPI - General Chief complaint: Skin/Abscess/Foreign Body Stated complaint: Abscess Time Seen by Provider: 08/23/20 02:28 Source: patient Mode of arrival: ambulatory Limitations: no limitations - History of Present Illness Initial comments: 40-year-old male patient presents to the emergency department today for evaluation of pain and swelling to the right buttock. Patient states the area has been swollen for the last 5 or 6 days. He was seen at [facility] and had CAT scan performed but did not stay to hear results. Patient denies any drainage from the area. Denies itching. States it is very painful to sit and walk. Denies fever or chills. Denies nausea or vomiting. Denies any history of similar symptoms. Patient does admit to IV drug use including heroin and methamphetamines. He denies any painful bowel movements. Patient denies any recent rash, cough, shortness of breath, chest pain, abdominal pain, diarrhea, constipation, back pain, numbness, tingling, dizziness, weakness, hematuria, dysuria, urinary urgency, urinary frequency, headache, visual changes, or any other complaints. - Related Data Home Medications Medication Instructions Recorded Confirmed oxyCODONE HCL/ACETAMINOPHEN 1 tab PO TID PRN 08/11/16 08/06/20 [Percocet 10-325 mg] ALPRAZolam [Xanax] 2 mg PO TID PRN 12/04/16 08/06/20 Pregabalin [Lyrica] 75 mg PO BID 12/04/16 08/06/20 Previous Rx's Medication Instructions Recorded Cyclobenzaprine [Flexeril] 10 mg PO TID #14 tab 12/18/16 hydrOXYzine HCL [Atarax] 25 mg PO TID PRN #15 tab 04/10/20 Permethrin 5% Cream [Elimite] 1 applic TOPICAL ONCE #1 tube 07/11/20 Permethrin 5% Cream [Elimite] 1 applic TOPICAL ONCE #60 gram 08/06/20 Sulfamethoxazole/Trimethoprim 2 tab PO BID #40 tablet 08/23/20 [Bactrim DS 800-160 mg] Allergies Allergy/AdvReac Type Severity Reaction Status Date / Time No Known Allergies Allergy Verified 08/23/20 00:46 Review of Systems ROS Statement: Those systems with pertinent positive or pertinent negative responses have been documented in the HPI. ROS Other: All systems not noted in ROS Statement are negative. Past Medical History Past Medical History: No Reported History Additional Past Medical History / Comment(s): herniated disc History of Any Multi-Drug Resistant Organisms: MRSA Date of last positivie culture/infection: 12/03/15 MDRO Source:: BACK Past Surgical History: No Surgical Hx Reported Additional Past Surgical History / Comment(s): left ankle pins & screws Past Psychological History: Anxiety, Depression Smoking Status: Current every day smoker Past Alcohol Use History: Occasional Past Drug Use History: Heroin, IV Drug Use, Methamphetamine General Exam Limitations: no limitations General appearance: alert, in no apparent distress, other (Physical well- developed, well-nourished adult male patient in no acute distress. Vital signs upon presentation are temperature 98.0F, pulse 95, respirations 20, blood pressure 125/82, pulse ox 98% on room air.) Respiratory exam: Present: normal lung sounds bilaterally. Absent: respiratory distress, wheezes, rales, rhonchi, stridor Cardiovascular Exam: Present: regular rate, normal rhythm, normal heart sounds. Absent: systolic murmur, diastolic murmur, rubs, gallop, clicks GI/Abdominal exam: Present: soft, normal bowel sounds. Absent: distended, tenderness, guarding, rebound, rigid Neurological exam: Present: alert, oriented X3, CN II-XII intact Psychiatric exam: Present: normal affect, normal mood Skin exam: Present: warm, dry, intact, normal color. Absent: rash Expanded 1 - There is a 8 cm x 8 cm area of skin induration, swelling, erythema over the right lower buttock. There is no perianal tenderness or swelling noted. Course Vital Signs 08/23/20 00:44 Temperature 98.0 F Pulse Rate 95 Respiratory 20 Rate Blood Pressure 125/82 O2 Sat by Pulse 98 Oximetry Procedures - Incision & Drainage Consent Obtained: verbal consent Site: buttock (Right) Size (cm): 8 I&D Cleaning Method: Betadine Needle Aspiration Performed?: Yes I&D Drainage Obtained: Other (None) Patient Tolerated Procedure: well, no complications Medical Decision Making - Medical Decision Making 40-year-old male patient presents to the emergency department today for evaluation of swelling, pain, redness to the right lower buttock. Physical examination did reveal an 8 cm x 8 cm area of swelling, induration, erythema. I did obtain CT report from [facility] which did show an 8 cm area of what appeared to be cellulitis with no fluid collection. Middle of the area did seem to be somewhat fluctuant so I did attempt needle aspiration without removal of any fluid. Patient will be started on antibiotics. Instructed to do warm sitz baths or warm compresses several times daily. He is instructed to follow-up with general surgery and primary care physician for recheck in 1-2 days. Return parameters were discussed in detail. He verbalizes understanding and agrees with this plan. Case discussed with my attending Dr. Diaz. Disposition Clinical Impression: Cellulitis of right buttock Disposition: HOME SELF-CARE Condition: Good Instructions (If sedation given, give patient instructions): Cellulitis (ED) Additional Instructions: Do warm baths or warm compresses to the area several times daily. Complete antibiotic prescription and full. Follow-up with the surgeon for further evaluation of the area. Return to the emergency department for any new, worsening, or concerning symptoms. Prescriptions: Sulfamethoxazole/Trimethoprim [Bactrim DS 800-160 mg] 2 tab PO BID #40 tablet Is patient prescribed a controlled substance at d/c from ED?: No Referrals: Gianni Walden MD [Medical Doctor] - 1-2 days Time of Disposition: 03:48
[2020-08-23] MEDS ORDERED: SULFAMETH-TMP DS STARTER PACK 2 TAB BTL PO STA (03:49)
== END 2020-08-23 03:54 | disposition home or self-care (01) ==
LOC: EC 00:41
DX: L03.317 Cellulitis of buttock (principal); F17.200 Nicotine dependence, unspecified, uncomplicated; F11.90 Opioid use, unspecified, uncomplicated; F15.90 Other stimulant use, unspecified, uncomplicated; F41.9 Anxiety disorder, unspecified; F32.9 Major depressive disorder, single episode, unspecified; Z79.899 Other long term (current) drug therapy; Z86.14 Personal history of Methicillin resistant Staphylococcus aureus infection
CPT/HCPCS: 10160; 99283; J2001

== ENCOUNTER 2020-08-23 19:53 | Emergency (ER) | payer OTHER ==
[2020-08-23 20:00] VITALS: BP 126/86; PULSE 101; RESP 18; TEMP 98.7
--- NOTE | 2020-08-23 20:24 | ED ---
Skin/Abscess/FB HPI - General Chief complaint: Skin/Abscess/Foreign Body Stated complaint: Cyst Source: patient, RN notes reviewed Mode of arrival: ambulatory Limitations: no limitations - History of Present Illness Initial comments: Patient is a 40-year-old male that presents to the emergency department complaining of a right buttock cellulitis. He was recently discharged from the ER early this morning with antibiotics after aspiration got no fluid or pus. He stated that he is taking 3 of the doses of antibiotics but was picking at the abscess/cellulitis area and pulled some skin off. He noted that after he pulled the skin off he had some very minimal fluid in the area. He came back just to get a "professional "opinion to make sure he was okay. He denied any new s ymptoms or pain. He denied chest pain shortness of breath headache nausea vomiting diarrhea constipation fever fatigue chills. - Related Data Home Medications Medication Instructions Recorded Confirmed oxyCODONE HCL/ACETAMINOPHEN 1 tab PO TID PRN 08/11/16 08/06/20 [Percocet 10-325 mg] ALPRAZolam [Xanax] 2 mg PO TID PRN 12/04/16 08/06/20 Pregabalin [Lyrica] 75 mg PO BID 12/04/16 08/06/20 Previous Rx's Medication Instructions Recorded Cyclobenzaprine [Flexeril] 10 mg PO TID #14 tab 12/18/16 hydrOXYzine HCL [Atarax] 25 mg PO TID PRN #15 tab 04/10/20 Permethrin 5% Cream [Elimite] 1 applic TOPICAL ONCE #1 tube 07/11/20 Permethrin 5% Cream [Elimite] 1 applic TOPICAL ONCE #60 gram 08/06/20 Sulfamethoxazole/Trimethoprim 2 tab PO BID #40 tablet 08/23/20 [Bactrim DS 800-160 mg] Allergies Allergy/AdvReac Type Severity Reaction Status Date / Time No Known Allergies Allergy Verified 08/23/20 20:00 Review of Systems ROS Statement: Those systems with pertinent positive or pertinent negative responses have been documented in the HPI. ROS Other: All systems not noted in ROS Statement are negative. Past Medical History Past Medical History: No Reported History Additional Past Medical History / Comment(s): herniated disc History of Any Multi-Drug Resistant Organisms: MRSA Date of last positivie culture/infection: 12/03/15 MDRO Source:: BACK Past Surgical History: Orthopedic Surgery Additional Past Surgical History / Comment(s): left ankle pins & screws Past Psychological History: Anxiety, Depression Smoking Status: Current every day smoker Past Alcohol Use History: Occasional Past Drug Use History: Heroin, IV Drug Use, Methamphetamine General Exam Limitations: no limitations General appearance: alert, in no apparent distress Head exam: Present: atraumatic, normocephalic, normal inspection Eye exam: Present: normal appearance, PERRL, EOMI. Absent: scleral icterus, conjunctival injection, periorbital swelling Neck exam: Present: normal inspection. Absent: tenderness, meningismus, lymphadenopathy Respiratory exam: Present: normal lung sounds bilaterally. Absent: respiratory distress, wheezes, rales, rhonchi, stridor Cardiovascular Exam: Present: regular rate, normal rhythm, normal heart sounds. Absent: systolic murmur, diastolic murmur, rubs, gallop, clicks GI/Abdominal exam: Present: soft, normal bowel sounds. Absent: distended, tenderness, guarding, rebound, rigid Extremities exam: Present: normal inspection, full ROM, normal capillary refill. Absent: tenderness, pedal edema, joint swelling, calf tenderness Neurological exam: Present: alert, oriented X3, CN II-XII intact Psychiatric exam: Present: normal affect, normal mood Skin exam: Present: warm, dry, intact, normal color, other (Gonzales had small patch of inflamed cellulitis on his internal right buttock. No fluctuance or drainage noted. Minimal crusted serosanguineous observed.). Absent: rash Course Vital Signs 08/23/20 19:55 Temperature 98.7 F Pulse Rate 101 H Respiratory 18 Rate Blood Pressure 126/86 O2 Sat by Pulse 98 Oximetry Medical Decision Making - Medical Decision Making 40-year-old male with a right buttock cellulitis that was prescribed antibiotics this morning. Area was still nonfluctuant, nondraining. Patient was told to continue his antibiotics as it may take several days for the CAT scan. Case discussed with Dr. العلي, patient can discharge home Disposition Clinical Impression: Abscess, Cellulitis Disposition: HOME SELF-CARE Condition: Stable Instructions (If sedation given, give patient instructions): Abscess (ED), Cellulitis (ED) Additional Instructions: Please return to the Emergency Department if symptoms worsen or any other concerns. Continue take antibiotics until complete and as prescribed. Avoid picking at or squeezing at the area to prevent worsening of pain and swelling. Follow-up with primary care in 3-5 days. Can take Tylenol Motrin for symptomatic management of pain. Is patient prescribed a controlled substance at d/c from ED?: No Referrals: Gianni Walden MD [Primary Care Provider] - 1-2 days Time of Disposition: 20:24
== END 2020-08-23 20:41 | disposition home or self-care (01) ==
LOC: EC 19:53
DX: L03.317 Cellulitis of buttock (principal); F32.9 Major depressive disorder, single episode, unspecified; F41.9 Anxiety disorder, unspecified; F17.200 Nicotine dependence, unspecified, uncomplicated; F15.90 Other stimulant use, unspecified, uncomplicated
CPT/HCPCS: 99282

== ENCOUNTER 2020-09-17 18:45 | Emergency (ER) | payer OTHER ==
[2020-09-17 19:05] VITALS: BP 156/116; PULSE 69; RESP 16; TEMP 98
--- NOTE | 2020-09-17 19:32 | ED ---
General Adult HPI - General Chief complaint: Skin/Abscess/Foreign Body Stated complaint: skin infection Time Seen by Provider: 09/17/20 19:05 Source: patient Mode of arrival: ambulatory Limitations: no limitations - History of Present Illness Initial comments: 40-year-old male presents to emergency Department with a chief complaint of black stuff coming out of the skin. Patient reports this has been ongoing for the past several days. States he has history of scabies but believes this is not the case. He states he has been treated for scabies with no improvement of symptoms. States he has noticed some "black stuff" coming out of the webbing between his fingers. He reports itching but denies any pain. Denies any fevers or chills. - Related Data Home Medications Medication Instructions Recorded Confirmed oxyCODONE HCL/ACETAMINOPHEN 1 tab PO TID PRN 08/11/16 08/06/20 [Percocet 10-325 mg] ALPRAZolam [Xanax] 2 mg PO TID PRN 12/04/16 08/06/20 Pregabalin [Lyrica] 75 mg PO BID 12/04/16 08/06/20 Previous Rx's Medication Instructions Recorded Cyclobenzaprine [Flexeril] 10 mg PO TID #14 tab 12/18/16 hydrOXYzine HCL [Atarax] 25 mg PO TID PRN #15 tab 04/10/20 Permethrin 5% Cream [Elimite] 1 applic TOPICAL ONCE #1 tube 07/11/20 Permethrin 5% Cream [Elimite] 1 applic TOPICAL ONCE #60 gram 08/06/20 Sulfamethoxazole/Trimethoprim 2 tab PO BID #40 tablet 08/23/20 [Bactrim DS 800-160 mg] Allergies Allergy/AdvReac Type Severity Reaction Status Date / Time No Known Allergies Allergy Verified 09/17/20 19:05 Review of Systems ROS Statement: Those systems with pertinent positive or pertinent negative responses have been documented in the HPI. ROS Other: All systems not noted in ROS Statement are negative. Past Medical History Past Medical History: No Reported History Additional Past Medical History / Comment(s): herniated disc History of Any Multi-Drug Resistant Organisms: MRSA Date of last positivie culture/infection: 12/03/15 MDRO Source:: BACK Past Surgical History: Orthopedic Surgery Additional Past Surgical History / Comment(s): left ankle pins & screws Past Psychological History: Anxiety, Depression Smoking Status: Current every day smoker Past Alcohol Use History: Occasional Past Drug Use History: Heroin, IV Drug Use, Methamphetamine General Exam Limitations: no limitations General appearance: alert, in no apparent distress Head exam: Present: atraumatic, normocephalic, normal inspection Eye exam: Present: normal appearance, PERRL, EOMI Pupils: Present: normal accommodation ENT exam: Present: normal exam, normal oropharynx, mucous membranes moist, TM's normal bilaterally, normal external ear exam Neck exam: Present: normal inspection, full ROM. Absent: tenderness Respiratory exam: Present: normal lung sounds bilaterally. Absent: respiratory distress Cardiovascular Exam: Present: regular rate, normal rhythm, normal heart sounds Extremities exam: Present: normal inspection, full ROM, normal capillary refill. Absent: tenderness, pedal edema, joint swelling Back exam: Present: normal inspection, full ROM. Absent: tenderness, CVA tenderness (R), CVA tenderness (L) Neurological exam: Present: alert, oriented X3 Psychiatric exam: Present: normal affect, normal mood Skin exam: Present: warm, dry, intact, normal color, other (Excoriations noted between his fingers where the patient was repetitively itching and the forehead as well.). Absent: rash Course Vital Signs 09/17/20 09/17/20 19:03 19:40 Temperature 98 F 98 F Pulse Rate 69 69 Respiratory 16 16 Rate Blood Pressure 156/116 156/116 O2 Sat by Pulse 95 95 Oximetry Medical Decision Making - Medical Decision Making 40-year-old male presents to the emergency department with a chief complaint of itching. Physical examination, no signs of scabies or any other lesions on the hands or the forehead. He has excoriations noted from repetitive itching. I advised him to follow-up with a transfer specialist and given contact information. Return parameters were discussed with patient is understanding and agreeable. Disposition Clinical Impression: Pruritus Disposition: HOME SELF-CARE Condition: Stable Instructions (If sedation given, give patient instructions): Itchy Skin (ED) Additional Instructions: Follow with transfer specialist. Return to emergency department if symptoms worsen. Is patient prescribed a controlled substance at d/c from ED?: No Referrals: None,Stated [Primary Care Provider] - 1-2 days Dalia Holliday MD [STAFF PHYSICIAN] - 1-2 days Ruddy Holliday MD [STAFF PHYSICIAN] - 1-2 days Time of Disposition: 19:32
== END 2020-09-17 19:41 | disposition home or self-care (01) ==
LOC: EC 18:45
DX: L29.9 Pruritus, unspecified (principal); F17.200 Nicotine dependence, unspecified, uncomplicated
CPT/HCPCS: 99282

== ENCOUNTER 2020-09-26 20:18 | Emergency (ER) | payer OTHER ==
[2020-09-26 20:33] VITALS: BP 144/84; PULSE 101; RESP 18; TEMP 98.3
[2020-09-26] MEDS ORDERED: BACITRACIN OINT 1 EACH PACKET TOPICAL ONE (20:44)
--- NOTE | 2020-09-26 20:45 | ED ---
Recheck HPI - General Chief Complaint: Recheck/Abnormal Lab/Rx Stated Complaint: infection on back Time Seen by Provider: 09/26/20 20:36 Source: patient Mode of arrival: ambulatory Limitations: no limitations - History of Present Illness Initial Comments: 40-year-old male presenting to the ER today for chief complaint of possible bedbug infestation. Patient states his bites on his back and over his eyebrow he states they're very itchy can stop picking at his skin. Patient does endorse methamphetamine use. Patient denies suicidal or homicidal ideation. He can answer questions appropriately. He denies fevers chills general malaise. Patient denies any additional complaints of any recent negative upon arrival patient appears nontoxic in no acute distress - Related Data Home Medications Medication Instructions Recorded Confirmed oxyCODONE HCL/ACETAMINOPHEN 1 tab PO TID PRN 08/11/16 08/06/20 [Percocet 10-325 mg] ALPRAZolam [Xanax] 2 mg PO TID PRN 12/04/16 08/06/20 Pregabalin [Lyrica] 75 mg PO BID 12/04/16 08/06/20 Previous Rx's Medication Instructions Recorded Cyclobenzaprine [Flexeril] 10 mg PO TID #14 tab 12/18/16 hydrOXYzine HCL [Atarax] 25 mg PO TID PRN #15 tab 04/10/20 Permethrin 5% Cream [Elimite] 1 applic TOPICAL ONCE #1 tube 07/11/20 Permethrin 5% Cream [Elimite] 1 applic TOPICAL ONCE #60 gram 08/06/20 Sulfamethoxazole/Trimethoprim 2 tab PO BID #40 tablet 08/23/20 [Bactrim DS 800-160 mg] Bacitracin/Polymyx Oint 1 applic TOPICAL BID 7 Days #30 gm 09/26/20 [Polysporin] Permethrin 5% Cream [Elimite] 1 applic TOPICAL ONCE 1 Days #1 09/26/20 tube Allergies Allergy/AdvReac Type Severity Reaction Status Date / Time No Known Allergies Allergy Verified 09/26/20 20:31 Review of Systems ROS Statement: Those systems with pertinent positive or pertinent negative responses have been documented in the HPI. ROS Other: All systems not noted in ROS Statement are negative. Past Medical History Past Medical History: No Reported History Additional Past Medical History / Comment(s): herniated disc History of Any Multi-Drug Resistant Organisms: MRSA Date of last positivie culture/infection: 12/03/15 MDRO Source:: BACK Past Surgical History: Orthopedic Surgery Additional Past Surgical History / Comment(s): left ankle pins & screws Past Psychological History: Anxiety, Depression Smoking Status: Current every day smoker Past Alcohol Use History: Occasional Past Drug Use History: Heroin, IV Drug Use, Methamphetamine General Exam - General Exam Comments Initial Comments: General: The patient is awake and alert, in no distress Eye: +3mm pupils are equal, round and reactive to light, extra-ocular movements are intact. No nystagmus. There is normal conjunctiva bilaterally. No signs of icterus. Ears, nose, mouth and throat: There are moist mucous membranes and no oral lesions. Neck: The neck is supple, there is no tenderness or JVD. Cardiovascular: There is a regular rate and rhythm. No murmur, rub or gallop is appreciated. Respiratory: Lungs are clear to auscultation, respirations are non-labored, breath sounds are equal. No wheezes, stridor, rales, or rhonchi. Gastrointestinal: Soft, non-distended, non-tender abdomen without masses or organomegaly noted. There is no rebound or guarding present. Musculoskeletal: Normal ROM, no tenderness. Strength 5/5. Sensation intact. Radial pulses equal bilaterally 2+. Neurological: A&O x 3. CN II-XII intact, There are no obvious motor or sensory deficits. Coordination appears grossly intact. Speech is normal. Skin: Skin is warm and dry and no rashes. Small scabbed circular lesions on back, about 4 random distribution with no surrounding redness/bleeding. there is irration throughout left eyebrow, a single white comedone noted. Psychiatric: Cooperative, appropriate mood & affect, normal judgment. Limitations: no limitations Course Vital Signs 09/26/20 20:31 Temperature 98.3 F Pulse Rate 101 H Respiratory 18 Rate Blood Pressure 144/84 O2 Sat by Pulse 98 Oximetry Medical Decision Making - Medical Decision Making Code own and some irritation flaking of the left eyebrow patient is actively scratching the area. There is some small circular lesions are scabbed on the back there is no surrounding cellulitis evident. This could be of this dictation such as bed bugs there is no obvious of this dictation or insects noted on physical examination. Patient be to folliculitis as well as scabies. recommended home treatment of bed bugs. pt admits to methamphetamine use and I discussed that this at time can cause a person to pick their skin, advised against use and discussed risks of use. Patient discharged appearing well, nontoxic in no acute distress. Disposition Clinical Impression: Folliculitis Disposition: HOME SELF-CARE Condition: Good Instructions (If sedation given, give patient instructions): Folliculitis (ED), Bed Bugs (ED) Additional Instructions: Please use medication as discussed. Please follow-up with family doctor in the next 2 days. Please return to emergency room if the symptoms increase or worsen or for any other concerns. Prescriptions: Permethrin 5% Cream [Elimite] 1 applic TOPICAL ONCE 1 Days #1 tube Bacitracin/Polymyx Oint [Polysporin] 1 applic TOPICAL BID 7 Days #30 gm Is patient prescribed a controlled substance at d/c from ED?: No Referrals: None,Stated [Primary Care Provider] - 1-2 days [facility] [NON-STAFF] - 1-2 days Time of Disposition: 20:45
== END 2020-09-26 21:00 | disposition home or self-care (01) ==
LOC: EC 20:18
DX: L73.9 Follicular disorder, unspecified (principal); B86 Scabies; F15.90 Other stimulant use, unspecified, uncomplicated; F32.9 Major depressive disorder, single episode, unspecified; F41.9 Anxiety disorder, unspecified; F17.200 Nicotine dependence, unspecified, uncomplicated; Z79.899 Other long term (current) drug therapy
CPT/HCPCS: 99282

== ENCOUNTER 2020-09-28 00:12 | Emergency (ER) | payer OTHER ==
[2020-09-28 00:33] VITALS: RESP 16; TEMP 98.2
[2020-09-28 01:20] LABS: Appearance,Urine Clear (Clear); Bilirubin,Urine Negative (Negative); Blood,Urine Negative (Negative); Color,Urine Yellow; Glucose,Urine (UA) Negative (Negative); Ketones,Urine Negative (Negative); Leukocyte Esterase,Urine Negative (Negative); Nitrite,Urine Negative (Negative); Protein,Urine Trace (Negative); Specific Gravity,Urine 1.024 (1.001-1.035); Urobilinogen,Urine <2.0 mg/dL (<2.0)
[2020-09-28 01:37] LABS: Amphetamine Screen,Urine Detected (NotDetected); Barbiturate Screen,Urine Not Detected (NotDetected); Benzodiazepines Screen,Urine Detected (NotDetected); Cocaine Screen,Urine Detected (NotDetected); Methadone Screen, Urine Not Detected (NotDetected); Opiate Screen,Urine Detected (NotDetected); Oxycodone Screen, Urine Not Detected (NotDetected); Phencyclidine Screen,Urine Not Detected (NotDetected); Tricyclic Antidepressant,Urine Not Detected (NotDetected); Urn Cannabinoid Scrn Detected (NotDetected)
--- NOTE | 2020-09-28 02:14 | ED ---
Psych HPI <Eric Diaz - Last Filed: 09/28/20 03:31> - General Source: patient, police Mode of arrival: EMS <Jessica Black - Last Filed: 09/28/20 19:14> - General Chief Complaint: Psychiatric Symptoms Stated Complaint: Mental Health Time Seen by Provider: 09/28/20 00:34 - History of Present Illness Initial Comments: 40-year-old male presenting to emergency department today with police for psychiatric evaluation. Patient is petitioned. Patient states he is not suicidal or homicidal but he believes that people are trying to kill him. Patient appears paranoid, and to be having delusional thoughts. Patient states he last used heroin about 8 hours ago. Pt denies additional complaints. Remaining ROS (-). (Jessica Black) - Related Data Home Medications Medication Instructions Recorded Confirmed oxyCODONE HCL/ACETAMINOPHEN 1 tab PO TID PRN 08/11/16 08/06/20 [Percocet 10-325 mg] ALPRAZolam [Xanax] 2 mg PO TID PRN 12/04/16 08/06/20 Pregabalin [Lyrica] 75 mg PO BID 12/04/16 08/06/20 Previous Rx's Medication Instructions Recorded Cyclobenzaprine [Flexeril] 10 mg PO TID #14 tab 12/18/16 hydrOXYzine HCL [Atarax] 25 mg PO TID PRN #15 tab 04/10/20 Permethrin 5% Cream [Elimite] 1 applic TOPICAL ONCE #1 tube 07/11/20 Permethrin 5% Cream [Elimite] 1 applic TOPICAL ONCE #60 gram 08/06/20 Sulfamethoxazole/Trimethoprim 2 tab PO BID #40 tablet 08/23/20 [Bactrim DS 800-160 mg] Bacitracin/Polymyx Oint 1 applic TOPICAL BID 7 Days #30 gm 09/26/20 [Polysporin] Permethrin 5% Cream [Elimite] 1 applic TOPICAL ONCE 1 Days #1 09/26/20 tube Allergies Allergy/AdvReac Type Severity Reaction Status Date / Time No Known Allergies Allergy Verified 09/26/20 20:31 Review of Systems ROS Other: All systems not noted in ROS Statement are negative. <Eric Diaz - Last Filed: 09/28/20 03:31> ROS Other: All systems not noted in ROS Statement are negative. <Jessica Black - Last Filed: 09/28/20 19:14> ROS Statement: Those systems with pertinent positive or pertinent negative responses have been documented in the HPI. Past Medical History Past Medical History: No Reported History Additional Past Medical History / Comment(s): herniated disc History of Any Multi-Drug Resistant Organisms: MRSA Date of last positivie culture/infection: 12/03/15 MDRO Source:: BACK Past Surgical History: Orthopedic Surgery Additional Past Surgical History / Comment(s): left ankle pins & screws Past Psychological History: Anxiety, Depression Smoking Status: Current every day smoker Past Alcohol Use History: Occasional Past Drug Use History: Heroin, IV Drug Use, Methamphetamine <Jessica Black - Last Filed: 09/28/20 19:14> General Exam Limitations: no limitations <Jessica Black - Last Filed: 09/28/20 19:14> - General Exam Comments Initial Comments: General: The patient is awake and alert, in no distress Eye:+2mm pupils are equal, round and reactive to light, extra-ocular movements are intact. No nystagmus. There is normal conjunctiva bilaterally. No signs of icterus. Ears, nose, mouth and throat: There are moist mucous membranes and no oral lesions. Neck: The neck is supple, there is no tenderness or JVD. Cardiovascular: There is a regular rate and rhythm. No murmur, rub or gallop is appreciated. Respiratory: Lungs are clear to auscultation, respirations are non-labored, breath sounds are equal. No wheezes, stridor, rales, or rhonchi. Gastrointestinal: Soft, non-distended, non-tender abdomen without masses or organomegaly noted. There is no rebound or guarding present. = Musculoskeletal: Normal ROM, no tenderness. Strength 5/5. Sensation intact. Radial and DP pulses equal bilaterally 2+. Neurological: A&O x 3. CN II-XII intact grossly, There are no obvious motor or sensory deficits. Coordination appears grossly intact. Speech is normal. Skin: Skin is warm and dry and no rashes or lesions are noted. Psychiatric: Cooperative, but has delusional paranoid thoughts-thinks people are trying to kill him. (JonmontrellNarcisaJessica L) Course Vital Signs 09/28/20 09/28/20 00:24 06:34 Temperature 98.2 F Pulse Rate 79 62 Respiratory 16 16 Rate Blood Pressure 123/81 120/79 O2 Sat by Pulse 98 98 Oximetry Medical Decision Making <Jessica Black - Last Filed: 09/28/20 19:14> - Medical Decision Making 40yo male presenting for cc of psychiatric evaluation. delusional/paranoid thoughts.EPS evaluated pt, consulted psychiatry who recommended discharge. (Jessica Black) - Lab Data Lab Results 09/28/20 09/28/20 Range/Units 01:03 01:03 Urine Color Yellow Urine Appearance Clear (Clear) Urine pH 6.0 (5.0-8.0) Ur Specific [place] 1.024 (1.001-1.035) Urine Protein Trace H (Negative) Urine Glucose (UA) Negative (Negative) Urine Ketones Negative (Negative) Urine Blood Negative (Negative) Urine Nitrite Negative (Negative) Urine Bilirubin Negative (Negative) Urine Urobilinogen <2.0 (<2.0) mg/dL Ur Leukocyte Esterase Negative (Negative) Urine Opiates Screen Detected H (NotDetected) Ur Oxycodone Screen Not Detected (NotDetected) Urine Methadone Screen Not Detected (NotDetected) Ur Propoxyphene Screen Not Detected (NotDetected) Ur Barbiturates Screen Not Detected (NotDetected) U Tricyclic Antidepress Not Detected (NotDetected) Ur Phencyclidine Scrn Not Detected (NotDetected) Ur Amphetamines Screen Detected H (NotDetected) U Methamphetamines Scrn Detected H (NotDetected) U Benzodiazepines Scrn Detected H (NotDetected) Urine Cocaine Screen Detected H (NotDetected) U Marijuana (THC) Screen Detected H (NotDetected) Coronavirus (PCR) Not Detected (Not Detectd) Disposition Is patient prescribed a controlled substance at d/c from ED?: No <Eric Diaz - Last Filed: 09/28/20 03:31> <Jessica Black - Last Filed: 09/28/20 19:14> Clinical Impression: Substance abuse Disposition: HOME SELF-CARE Condition: Good Instructions (If sedation given, give patient instructions): Polysubstance Abuse (ED) Referrals: None,Stated [Primary Care Provider] - 1-2 days
[2020-09-28 06:35] VITALS: BP 120/79; PULSE 62
== END 2020-09-28 06:35 | disposition home or self-care (01) ==
LOC: EC 00:12
DX: F55.8 Abuse of other non-psychoactive substances (principal); F17.200 Nicotine dependence, unspecified, uncomplicated; F32.9 Major depressive disorder, single episode, unspecified; F41.9 Anxiety disorder, unspecified
CPT/HCPCS: 80306; 81003; 82075; 87635; 99285

== ENCOUNTER 2020-09-29 17:02 | Inpatient (IN) | payer MEDICAID, OTHER ==
[2020-09-29] MEDS ORDERED: LORazepam 1 MG TAB PO STA (18:18)
--- NOTE | 2020-09-29 18:18 | ED ---
General Adult HPI - General Chief complaint: Psychiatric Symptoms Stated complaint: mental health Time Seen by Provider: 09/29/20 17:27 Source: patient, RN notes reviewed, old records reviewed Mode of arrival: ambulatory Limitations: no limitations - History of Present Illness Initial comments: 40-year-old male presents for psychiatric evaluation. Patient has no suicidal homicidal ideation. He denies suicide attempt. He states he does have anger issues and feels that he wants to kill 1 person in particular. Denies physical complaints. He has had multiple inpatient psychiatric evaluation and treatment. - Related Data Home Medications Medication Instructions Recorded Confirmed oxyCODONE HCL/ACETAMINOPHEN 1 tab PO TID PRN 08/11/16 09/29/20 [Percocet 10-325 mg] Cyclobenzaprine [Flexeril] 10 mg PO BID PRN 09/29/20 09/29/20 Allergies Allergy/AdvReac Type Severity Reaction Status Date / Time No Known Allergies Allergy Verified 09/29/20 17:26 Review of Systems ROS Statement: Those systems with pertinent positive or pertinent negative responses have been documented in the HPI. ROS Other: All systems not noted in ROS Statement are negative. Past Medical History Past Medical History: No Reported History Additional Past Medical History / Comment(s): herniated disc History of Any Multi-Drug Resistant Organisms: MRSA Date of last positivie culture/infection: 12/03/15 MDRO Source:: BACK Past Surgical History: Orthopedic Surgery Additional Past Surgical History / Comment(s): left ankle pins & screws Past Psychological History: Anxiety, Depression Smoking Status: Current every day smoker Past Alcohol Use History: Occasional Past Drug Use History: Heroin, IV Drug Use, Methamphetamine General Exam Limitations: no limitations General appearance: alert, in no apparent distress Head exam: Present: atraumatic, normocephalic Eye exam: Present: normal appearance ENT exam: Present: normal exam Neck exam: Present: normal inspection Respiratory exam: Present: normal lung sounds bilaterally. Absent: respiratory distress, wheezes Cardiovascular Exam: Present: regular rate, normal rhythm GI/Abdominal exam: Present: soft. Absent: distended, tenderness, guarding Extremities exam: Present: normal inspection, normal capillary refill Neurological exam: Present: alert, oriented X3 Psychiatric exam: Present: flat affect, homicidal ideation, suicidal ideation Skin exam: Present: warm, dry, intact Course Vital Signs 09/29/20 09/29/20 09/29/20 17:22 18:25 21:15 Temperature 98.2 F Pulse Rate 100 Respiratory 22 18 14 Rate Blood Pressure 101/68 O2 Sat by Pulse 99 Oximetry - Reevaluation(s) Reevaluation #1: 09/29/20 18:18 Patient cleared for EPS Medical Decision Making - Medical Decision Making Patient evaluated by EPS and will be admitted to this institution for further psychiatric evaluation and treatment. - Lab Data Lab Results 09/29/20 Range/Units 18:23 Urine Opiates Screen Detected H (NotDetected) Ur Oxycodone Screen Not Detected (NotDetected) Urine Methadone Screen Not Detected (NotDetected) Ur Propoxyphene Screen Not Detected (NotDetected) Ur Barbiturates Screen Not Detected (NotDetected) U Tricyclic Antidepress Not Detected (NotDetected) Ur Phencyclidine Scrn Not Detected (NotDetected) Ur Amphetamines Screen Detected H (NotDetected) U Methamphetamines Scrn Detected H (NotDetected) U Benzodiazepines Scrn Detected H (NotDetected) Urine Cocaine Screen Detected H (NotDetected) U Marijuana (THC) Screen Detected H (NotDetected) Disposition Clinical Impression: Suicidal ideation, Homicidal ideations Disposition: ADMITTED IP TO THIS [facility] Condition: Stable Is patient prescribed a controlled substance at d/c from ED?: No Referrals: None,Stated [Primary Care Provider] - 1-2 days Decision to Admit Reason: Admit from EC Decision Date: 09/29/20 Decision Time: 21:18
[2020-09-29 18:44] LABS: Amphetamine Screen,Urine Detected (NotDetected); Barbiturate Screen,Urine Not Detected (NotDetected); Benzodiazepines Screen,Urine Detected (NotDetected); Cocaine Screen,Urine Detected (NotDetected); Methadone Screen, Urine Not Detected (NotDetected); Opiate Screen,Urine Detected (NotDetected); Oxycodone Screen, Urine Not Detected (NotDetected); Phencyclidine Screen,Urine Not Detected (NotDetected); Tricyclic Antidepressant,Urine Not Detected (NotDetected); Urn Cannabinoid Scrn Detected (NotDetected)
[2020-09-29] MEDS ORDERED: ACETAMINOPHEN TAB 325 MG TAB PO PRN (23:40)
[2020-09-29] MEDS ORDERED: MAGNESIUM HYDROXIDE 2,400 MG/10 ML CUP PO PRN (23:40)
[2020-09-29] MEDS ORDERED: HALOPERIDOL LACTATE 5 MG/ML 1 ML VIAL IM PRN (23:41)
[2020-09-29] MEDS ORDERED: haloperidoL 5 MG TAB PO PRN (23:41)
[2020-09-29] MEDS ORDERED: LORazepam 2 MG/ML INJ IM PRN (23:41)
[2020-09-30] MEDS: LORazepam 1 MG TAB PO PRN ×3 (00:19→21:09)
[2020-09-30] MEDS: NICOTINE 14MG/24HR PATCH TRANSDERM SCH ×2 (05:20→09:39)
[2020-09-30] MEDS ORDERED: LOPERAMIDE 2 MG CAP PO PRN (11:18)
[2020-09-30] MEDS ORDERED: hydrOXYzine pamoate 25 MG CAP PO PRN (11:18)
--- NOTE | 2020-09-30 11:29 | P.HP ---
Psychiatric H&P - . H&P Date: 09/30/20 History & Physical: Allergies Allergy/AdvReac Type Severity Reaction Status Date / Time No Known Allergies Allergy Verified 09/30/20 00:27 Vital Signs Temp 97.4 F L 09/30/20 09:43 Pulse 107 H 09/30/20 09:43 Resp 16 09/30/20 09:43 BP 120/58 09/30/20 09:43 Pulse Ox 95 09/30/20 09:43 Intake & Output 09/29/20 09/30/20 09/30/20 18:59 06:59 18:59 Weight 90.718 kg 90.322 kg Laboratory Last Values Urine Opiates Screen Detected (NotDetected) H 09/29/20 18:23 Ur Oxycodone Screen Not Detected (NotDetected) 09/29/20 18:23 Urine Methadone Screen Not Detected (NotDetected) 09/29/20 18:23 Ur Propoxyphene Screen Not Detected (NotDetected) 09/29/20 18:23 Ur Barbiturates Screen Not Detected (NotDetected) 09/29/20 18:23 U Tricyclic Antidepress Not Detected (NotDetected) 09/29/20 18:23 Ur Phencyclidine Scrn Not Detected (NotDetected) 09/29/20 18:23 Ur Amphetamines Screen Detected (NotDetected) H 09/29/20 18:23 U Methamphetamines Scrn Detected (NotDetected) H 09/29/20 18:23 U Benzodiazepines Scrn Detected (NotDetected) H 09/29/20 18:23 Urine Cocaine Screen Detected (NotDetected) H 09/29/20 18:23 U Marijuana (THC) Screen Detected (NotDetected) H 09/29/20 18:23 Coronavirus (PCR) Not Detected (Not Detectd) 09/29/20 21:21 09/30/20 11:19 IDENTIFYING DATA: Patient is a 40-year-old male who is currently recently homeless and has 3 kids is single and is unemployed. HPI: Patient presented to the hospital yesterday with complaints of anger issues according to ER report. Patient apparently said in the ER that she was feeling homicidal "towards one person" however did not say who he was homicidal towards. Patient had a UDS which was positive for methamphetamine, opiates, cocaine, marijuana, benzodiazepines. Patient was seen today and appeared to be lethargic and was complaining of pain. He had poor hygiene and grooming. He states "I had to get away off the streets". He was preoccupied with avoiding certain people who he believes were after him. He states that "these guys are on my ass". He was fairly guarded and evasive as to why they were after him. He states that "they didn't like that and I said one of them up". He claims that one of them got away. He states that he's been using methamphetamine approxim ately 1 g for the past 2 days and also heroin however does not know how much he is taking. He also states that he abuses Percocets at home. He states that he is also being prescribed Xanax wishes he has been using approximately 2 g within the past 2 days. He states that he smokes marijuana daily. He claims that his mood is "okay" however states that he is feeling irritable. He is admitting to mild opiate withdrawal symptoms including irritability and anxiety and upset stomach. He states that he usually gets diarrhea after. He states that he has high anxiety at this time. He claims that he has poor appetite and poor sleep. He states that he was recently evicted and is now homeless and claims that he stopped his Lexapro several months ago. Patient denies any current suicidal or homicidal ideations intent or plan. At this time patient denies any auditory or visual hallucinations. Patient denies any flight of ideas racing thoughts and increased in goal directed behavior. Patient admits to using cigarettes and recreational drugs as listed above. He denies any alcohol use. PAST PSYCHIATRIC HISTORY: Patient states that he has a history of polysubstance abuse and depression and anxiety. He claims that he was previously on Lexapro and Xanax in the past. Patient denies any previous psychiatric hospitalizations. Patient denies any psychiatric outpatient follow-up. Patient denies any history of suicide attempts in the past. PMH: Herniated disc with chronic back pain. ALLERGIES: as per EMR CHEMICAL DEPENDENCY HISTORY: as per HPI FAMILY PSYCHIATRIC/SUBSTANCE USE HISTORY: denies SOCIAL HISTORY: Patient was born and raised in [facility]. He states that he completed his GED. He states that he currently is homeless and has 3 kids and is single. He states that he is currently unemployed. He claims that he has served halfway time several times for drug related charges including 5 DUIs in the past. MENTAL STATUS EXAM: General Appearance: Patient appears to be tall, appears to be an mild discomfort due to pain in his back, stated age is alert, directable, and guarded/evasive. Patient appears to have poor hygiene and grooming. Behavior: Patient is seated without any agitated behavior. Appears to be somewhat lethargic. Speech: Patient's speech is fluent and nonpressured. Mood/Affect: Patient reports their mood is "anxious", affect is congruent and constricted. Suicidality/Homicidality: Patient denies having any homicidal ideation intent or plan. Denies any suicidal ideations intent or plan Perceptions: Patient denies any visual hallucinations and denies any auditory hallucinations Though content/process: Patient was focused on controlled medications. Poor insight and judgment. Memory and concentration: AOX3, grossly intact for the purposes of this session. Can spell "WORLD" backwards Judgment and insight: poor STRENGTHS/WEAKNESSES: strength is that patient is resilient. Weakness is that patient has poor judgment and is impulsive INTELLECT: average IMPRESSIONS: Depressive disorder unspecified, rule out secondary to polysubstance use Opiate abuse, currently in withdrawal Cannabis use disorder Methamphetamine abuse Benzodiazepine abuse Cocaine use disorder Nicotine dependence PLAN: -Patient is admitted under voluntary status to [facility] for stabilization of psychiatric symptoms and safety. Patient has signed adult voluntary form and medication consent and is placed in patient's chart. -Medications : Will start patient on Cymbalta 30 mg daily for mood/anxiety/pain. We'll also start patient on trazodone 50 mg daily at bedtime for mood/insomnia. Vistaril when necessary for anxiety. -Clonidine and loperamide prn for opiate withdrawal symptoms. -Ativan and Haldol PRN for agitation/aggression -Patient was counselled on substance abuse and desired to cut back on use -Patient was informed of the risks, benefits and side effects of the medication and patient verbally consented to taking the medications. Patient signed med consent form and was placed in chart. -Internal Medicine consult to perform medical evaluation and physical. -NRT - nicotine patch -SW on board for discharge planning. Encourage patient to participate in groups to work on coping skills. Likely discharge to either the [facility] or a friend/family's place. We'll attempt to see if patient would like to go to rehab. 09/30/20 11:27
[2020-09-30] MEDS: DULoxetine HCL 30 MG CAPSULE.DR PO SCH (11:55)
--- NOTE | 2020-09-30 12:50 | P.CONS ---
History of Present Illness - Reason for Consult Consult date: 09/30/20 Medical management Requesting physician: Moshe Stauffer - Chief Complaint Homicidal thoughts - History of Present Illness This is a 40-year-old male with past medical history noted below that presented to the emergency room with homicidal thoughts towards one person in particular. Patient is currently admitted to the psych unit for further management. I was asked to see him for medical management. Patient was awake and alert. He does not have any complaints at this time. Urine toxicology screen was positive for multiple drugs in the ER. Review of Systems Review of system: 14 points review of systems were obtained and were negative except to what were mentioned in the HPI. Past Medical History Past Medical History: No Reported History Additional Past Medical History / Comment(s): herniated disc History of Any Multi-Drug Resistant Organisms: MRSA Year Discovered:: 12/03/15 MDRO Source:: BACK Past Surgical History: Orthopedic Surgery Additional Past Surgical History / Comment(s): left ankle pins & screws Smoking Status: Current every day smoker Medications and Allergies Home Medications Medication Instructions Recorded Confirmed Type oxyCODONE HCL/ACETAMINOPHEN 1 tab PO TID PRN 08/11/16 09/30/20 History [Percocet 10-325 mg] Cyclobenzaprine [Flexeril] 10 mg PO BID PRN 09/29/20 09/30/20 History Allergies Allergy/AdvReac Type Severity Reaction Status Date / Time No Known Allergies Allergy Verified 09/30/20 00:27 Physical Exam Vitals: Vital Signs Temp Pulse Pulse Resp BP BP Pulse Ox 09/30/20 09:43 97.4 F L 107 H 16 120/58 95 09/30/20 00:37 97.5 F L 64 16 119/75 99 09/29/20 22:00 14 09/29/20 21:15 14 09/29/20 18:25 18 09/29/20 17:22 98.2 F 100 22 101/68 99 Intake and Output 09/29/20 09/30/20 09/30/20 22:59 06:59 14:59 Other: Weight 90.718 kg 90.322 kg General: The patient is awake and alert, in no distress Eye: there is normal conjunctiva bilaterally. Neck: The neck is supple, there is no JVD. Cardiovascular: Normal S1-S2, no S3-S4, no murmurs. Respiratory: Lungs clear to auscultation bilaterally Gastrointestinal: Abdomen is soft, nontender Musculoskeletal: There is no pedal edema. Neurological:. Speech is normal. Skin: Skin is warm and dry Results Labs: Abnormal Lab Results - Last 24 Hours (Table) 09/29/20 Range/Units 18:23 Urine Opiates Screen Detected H (NotDetected) Ur Amphetamines Screen Detected H (NotDetected) U Methamphetamines Scrn Detected H (NotDetected) U Benzodiazepines Scrn Detected H (NotDetected) Urine Cocaine Screen Detected H (NotDetected) U Marijuana (THC) Screen Detected H (NotDetected) Assessment and Plan Assessment: 1. Polysubstance abuse: Counseled extensively to quit. 2. Underlying depression/anxiety 3. Tobacco abuse: Counseled extensively to quit. Nicotine patch ordered. Today, I reviewed his medication list and lab work results. Management per psychiatry. Thank you for the consultation.
[2020-09-30] MEDS: MAG HYDROX/AL HYDROX/SIMETH 30 ML CUP PO PRN (15:49)
[2020-09-30] MEDS: cloNIDine HCL 0.1 MG TAB PO PRN (15:50)
[2020-09-30] MEDS: traZODone HCL 50 MG TAB PO SCH (21:09)
[2020-10-01] MEDS: LORazepam 1 MG TAB PO PRN ×2 (06:23→15:06)
[2020-10-01] MEDS: NICOTINE 14MG/24HR PATCH TRANSDERM SCH (08:36)
[2020-10-01] MEDS: DULoxetine HCL 30 MG CAPSULE.DR PO SCH (08:36)
--- NOTE | 2020-10-01 10:16 | P.PN ---
Progress Note - Text Progress Note Date: 10/01/20 Interval History: Patient was seen laying down in his bed this morning and was directable and ag reeable to speak with documentation writer in the office. Patient claims that he feels "a bit better" however was complaining of significant withdrawal symptoms. He states that he is having diarrhea however he is not taking any of the loperamide. He also claims that "you guys aren't giving me anything for my withdrawals and no Percocets or anything". He was requesting several controlled medications. He claims that "I wanted to get away from people that "came here now I'm ready to go". He is denying any anxiety today. He states that he slept fairly last night however claims that he still feels tired today and was yawning during the interview. He states that he also took an Ativan this morning for anxiety. At this time patient denies any suicidal or homical ideations, intent or plan. Patient denies any auditory, visual hallucinations and denies any paranoia or delusions. Patient denies any side effects from the medications and has been compliant with meds. Continues to have very poor insight. Mental Status Exam: General Appearance: Patient appears to be tall, stated age is alert, directable, and guarded/evasive. Patient appears to have poor hygiene and grooming. Behavior: Patient is seated without any agitated behavior. Appears to be somewhat lethargic. Yawning. Speech: Patient's speech is fluent and nonpressured. Mood/Affect: Patient reports their mood is "better", affect is congruent and constricted. Suicidality/Homicidality: Patient denies having any homicidal ideation intent or plan. Denies any suicidal ideations intent or plan Perceptions: Patient denies any visual hallucinations and denies any auditory hallucinations Though content/process: Patient was focused on controlled medications. Poor insight and judgment. Memory and concentration: AOX3, grossly intact for the purposes of this session. Judgment and insight: poor Assessment Depressive disorder unspecified, rule out secondary to polysubstance use Opiate abuse, currently in withdrawal Cannabis use disorder Methamphetamine abuse Benzodiazepine abuse Cocaine use disorder Nicotine dependence Plan: -Patient continues to meet criteria for inpatient psychiatric admission for symptom stabilization and safety. Patient has signed adult voluntary form and medication consent and was placed in patient's chart. -Medications: Continue Cymbalta 30 mg daily for mood/anxiety, trazodone 50 mg daily at bedtime for mood/insomnia, Vistaril when necessary for anxiety. -Clonidine and loperamide prn for opiate withdrawal symptoms. -When necessary Ativan and Haldol for agitation/aggression. -NRT - nicotine patch -SW on board for discharge planning. Encouraged the patient to participate in milieu. Patient is not interested in rehab at this time. Likely discharge to either the care home or a friend/family's place. Likely discharge in 1-2 days.
[2020-10-01] MEDS: MAG HYDROX/AL HYDROX/SIMETH 30 ML CUP PO PRN (11:43)
[2020-10-01 12:20] LABS: Glucose,Whole Blood 84 mg/dL (75-99)
[2020-10-01] MEDS: traZODone HCL 50 MG TAB PO SCH (20:40)
[2020-10-02] MEDS: NICOTINE 14MG/24HR PATCH TRANSDERM SCH (08:25)
[2020-10-02] MEDS: DULoxetine HCL 30 MG CAPSULE.DR PO SCH (08:25)
[2020-10-02] MEDS: LORazepam 1 MG TAB PO PRN (08:27)
[2020-10-02] MEDS: cloNIDine HCL 0.1 MG TAB PO PRN (08:27)
[2020-10-02 08:31] VITALS: BP 115/61; PULSE 111; RESP 20
[2020-10-02 09:14] VITALS: TEMP 97.4
--- NOTE | 2020-10-02 10:05 | P.DS ---
Providers Date of admission: 09/29/20 23:27 Expected date of discharge: 10/02/20 Attending physician: Moshe Stauffer MD Consults: 09/29/20 23:40 Consult Physician Routine Consulting Provider: Eloy Physician Consult Reason/Comments: H&P and medical Do you want consulting provider notified?: Yes Primary care physician: Stated None - Discharge Diagnosis(es) (1) Depressive disorder Current Visit: Yes Status: Acute Priority: High (2) Cannabis use disorder, mild, abuse Current Visit: Yes Status: Acute Priority: Low (3) Methamphetamine abuse Current Visit: Yes Status: Acute Priority: Medium (4) Benzodiazepine abuse Current Visit: Yes Status: Acute Priority: Medium (5) Cocaine use disorder Current Visit: Yes Status: Acute Priority: Medium (6) Nicotine dependence Current Visit: Yes Status: Acute Priority: Low (7) Opioid dependence Current Visit: Yes Status: Acute Priority: Medium Hospital Course: Admission HPI: Admission note was completed by commercial insurance underwriter "Patient is a 40-year-old male who is currently recently homeless and has 3 kids is single and is unemployed. Patient presented to the hospital yesterday with complaints of anger issues according to ER report. Patient apparently said in the ER that she was feeling homicidal "towards one person" however did not say who he was homicidal towards. Patient had a UDS which was positive for methamphetamine, opiates, cocaine, marijuana, benzodiazepines. Patient was seen today and appeared to be lethargic and was complaining of pain. He had poor hygiene and grooming. He states "I had to get away off the streets". He was preoccupied with avoiding certain people who he believes were after him. He states that "these guys are on my ass". He was fairly guarded and evasive as to why they were after him. He states that "they didn't like that and I said one of them up". He claims that one of them got away. He states that he's been using methamphetamine approximately 1 g for the past 2 days and also heroin however does not know how much he is taking. He also states that he abuses Percocets at home. He states that he is also being prescribed Xanax wishes he has been using approximately 2 g within the past 2 days. He states that he smokes marijuana daily. He claims that his mood is "okay" however states that he is feeling irritable. He is admitting to mild opiate withdrawal symptoms including irritability and anxiety and upset stomach. He states that he usually gets diarrhea after. He states that he has high anxiety at this time. He claims that he has poor appetite and poor sleep. He states that he was recently evicted and is now homeless and claims that he stopped his Lexapro several months ago. Patient denies any current suicidal or homicidal ideations intent or plan. At this time patient denies any auditory or visual hallucinations. Patient denies any flight of ideas racing thoughts and increased in goal directed behavior. Patient admits to using cigarettes and recreational drugs as listed above. He denies any alcohol use." Hospital course: Upon admission to the unit patient was initially depressed and anxious. Patient was however directable and agreeable to commence treatment and signed adult voluntary form. Patient got along well with other patients on the unit and followed unit protocol. Patient was compliant with the medications and denied any side effects throughout hospital course. Patient was experiencing opioid withdrawal sx during the hospitalization inlcuding anxiety, irritabilty, diarrhea and nausea therefore patient was started on prn meds for w/d sx including clonidine, vistaril, loperamide. Patient was started on cymbalta 30mg daily for anxiety/mood/pain and trazodone 50mg qhs for insomnia/mood. Patient spoke of his stressors and engaged in therapy both group and individual. Patient was also seen by medical team for history and physical exam. Throughout the course of the hospitalization patient gradually improved with regards to mood, anxiety, sleep and became more future oriented with improved insight and judgment. On the day of discharge patient denied any suicidal or homicidal ideations intent or plan denied any auditory or visual hallucinations. Patient endorsed wanting to live for his health and family. The patient denied any access to guns or weapons. Patient denied any paranoia and did not endorse any delusions. Patient does have a significant history of substance abuse and was counseled on abstaining from all substances including alcohol and marijuana. Patient was offered however declined inpatient substance-abuse rehab. Patient elected to do outpatient substance use treatment program through [facility]. Patient was also counseled on the medications and need for regular compliance and was encouraged to follow-up with their outpatient appointment for mental health and also for primary care. Patient will discharged to the snf today. Mental status exam: General Appearance: Patient appears to be tall, stated age is alert, directable, and cooperative. Patient is in no acute distress and has improved hygiene and grooming Behavior: Patient is calmly seated without any agitated behavior. Speech: Patient's speech is fluent and nonpressured. Mood/Affect: Patient reports their mood is "good", affect is congruent and euthymic. Suicidality/Homicidality: Patient denies having any suicidal or homicidal ideation intent or plan. Perceptions: Patient denies any auditory or visual hallucinations. Though content/process: There is no evidence of any delusional thought content and thought process is linear and goal-directed. Memory and concentration: AOX3, grossly intact for the purposes of this session. Can spell "WORLD" backwards correctly. Judgment and insight: chronically poor, however has improved with guarded prognosis Impression: Depressive disorder unspecified likely secondary to polysubstance use Opioid dependence cannabis use disorder benzodiazepine abuse methamphetamine abuse cocaine use disorder nicotine dependence Plan: -Continue with discharge today as patient has improved and stabilized psychia trically and is not currently an imminent threat to himself and/or others. Patient will remain at chronically elevated risk for harm to self and/or others due to his impulsivity and polysubstance abuse. -Continue medications: continue with cymbalta 30mg daily for mood/anxiety, trazodone 50mg qhs for insomnia. Loperamide and clonidine prn for opiate w/d sx. -Patient was counseled on the need for medication compliance and appropriate follow-up at mental health and also primary care for medical issues. Patient verbalized understanding and agreed. -Social work to help arrange patient to be discharged today to snf. Social work also to arrange for patients follow up appointments with [facility] for psychiatric care along with follow up with primary care provider. -Patient counseled on abstaining from recreational drugs and marijuana and alcohol. Was informed/educated on the adverse effects on their physical and mental health. Patient verbally agreed and understood. Patient was offered substance abuse treatment however declined at this time. -Patient was instructed to return to the hospital or seek immediate medical care if their psychiatric or medical symptoms do worsen or reoccur. Allergies Allergy/AdvReac Type Severity Reaction Status Date / Time No Known Allergies Allergy Verified 09/30/20 00:27 Laboratory Results POC Glucose (mg/dL) 84 mg/dL (75-99) 10/01/20 12:16 POC Glu Branch Manager ID Gabriel Garrison 10/01/20 12:16 Urine Opiates Screen Detected (NotDetected) H 09/29/20 18:23 Ur Oxycodone Screen Not Detected (NotDetected) 09/29/20 18:23 Urine Methadone Screen Not Detected (NotDetected) 09/29/20 18:23 Ur Propoxyphene Screen Not Detected (NotDetected) 09/29/20 18:23 Ur Barbiturates Screen Not Detected (NotDetected) 09/29/20 18:23 U Tricyclic Antidepress Not Detected (NotDetected) 09/29/20 18:23 Ur Phencyclidine Scrn Not Detected (NotDetected) 09/29/20 18:23 Ur Amphetamines Screen Detected (NotDetected) H 09/29/20 18:23 U Methamphetamines Scrn Detected (NotDetected) H 09/29/20 18:23 U Benzodiazepines Scrn Detected (NotDetected) H 09/29/20 18:23 Urine Cocaine Screen Detected (NotDetected) H 09/29/20 18:23 U Marijuana (THC) Screen Detected (NotDetected) H 09/29/20 18:23 Coronavirus (PCR) Not Detected (Not Detectd) 09/29/20 21:21 Vital Signs Temp 97.4 F L 10/02/20 09:13 Pulse 111 H 10/02/20 08:29 Resp 20 10/02/20 08:29 BP 115/61 10/02/20 08:29 Pulse Ox 99 10/02/20 08:29 Patient Condition at Discharge: Stable Plan - Discharge Summary New Discharge Prescriptions: New cloNIDine HCL [Catapres] 0.1 mg PO BID PRN 5 Days tab PRN Reason: opioid w/d sx traZODone HCL [Desyrel] 50 mg PO HS 30 Days tab DULoxetine HCL [Cymbalta] 30 mg PO DAILY 30 Days capsule.dr Nicotine 14Mg/24Hr Patch [Habitrol] 1 patch TRANSDERM DAILY 30 Days patch Loperamide [Imodium] 2 mg PO QID PRN 5 Days cap PRN Reason: Diarrhea Acetaminophen Tab [Tylenol] 650 mg PO Q4HR PRN tab PRN Reason: Pain/Discomfort Continue oxyCODONE HCL/ACETAMINOPHEN [Percocet 10-325 mg] 1 tab PO TID PRN PRN Reason: Pain Cyclobenzaprine [Flexeril] 10 mg PO BID PRN PRN Reason: Muscle Pain Discharge Medication List oxyCODONE HCL/ACETAMINOPHEN [Percocet 10-325 mg] 1 tab PO TID PRN 08/11/16 [History] Cyclobenzaprine [Flexeril] 10 mg PO BID PRN 09/29/20 [History] Acetaminophen Tab [Tylenol] 650 mg PO Q4HR PRN tab 10/02/20 [Rx] DULoxetine HCL [Cymbalta] 30 mg PO DAILY 30 Days capsule. 10/02/20 [Rx] Loperamide [Imodium] 2 mg PO QID PRN 5 Days cap 10/02/20 [Rx] Nicotine 14Mg/24Hr Patch [Habitrol] 1 patch TRANSDERM DAILY 30 Days patch 10/02/20 [Rx] cloNIDine HCL [Catapres] 0.1 mg PO BID PRN 5 Days tab 10/02/20 [Rx] traZODone HCL [Desyrel] 50 mg PO HS 30 Days tab 10/02/20 [Rx] Follow up Appointment(s)/Referral(s): None,Stated [Primary Care Provider] - 1-2 days Patient Instructions/Handouts: Benzodiazepine Abuse (DC), Polysubstance Abuse (ED), Suicide Prevention (DC), Opioid Use Disorder (DC) Activity/Diet/Wound Care/Special Instructions: Activity and diet as tolerated. Avoid the use of street drugs and alcohol. Take all medications as prescribed. When you are in need of refills on your medications please contact your medical provider and/or outpatient psychiatrist to have this done. Please go to scheduled outpatient appointment for aftercare treatment. If symptoms return or become worse, call the crisis line at and/or go to the nearest emergency room for evaluation. Discharge Disposition: OTHER INSTITUTION NOT DEFINED
== END 2020-10-02 12:45 | disposition home or self-care (01) | DRG 881 ==
LOC: EC 17:02 → 3MHU 23:27
PROVIDERS: ADMIT Psychiatry & Neurology Psychiatry; ATTEND Psychiatry & Neurology Psychiatry
DX: F32.9 Major depressive disorder, single episode, unspecified (principal); F11.23 Opioid dependence with withdrawal; R45.851 Suicidal ideations; F17.200 Nicotine dependence, unspecified, uncomplicated; F15.10 Other stimulant abuse, uncomplicated; F14.10 Cocaine abuse, uncomplicated; F13.10 Sedative, hypnotic or anxiolytic abuse, uncomplicated; F12.10 Cannabis abuse, uncomplicated; F41.9 Anxiety disorder, unspecified; G47.00 Insomnia, unspecified; R45.850 Homicidal ideations; Z56.0 Unemployment, unspecified; Z59.0 Homelessness; Z20.822 Contact with and (suspected) exposure to COVID-19
CPT/HCPCS: 80306; 82075; 87635; 99285

== ENCOUNTER 2020-10-22 03:26 | Inpatient (IN) | payer MEDICAID, OTHER ==
--- NOTE | 2020-10-22 03:43 | ED ---
Psych HPI - General Chief Complaint: Psychiatric Symptoms Stated Complaint: Mental health Time Seen by Provider: 10/22/20 03:40 Source: patient, RN notes reviewed, old records reviewed Mode of arrival: ambulatory - History of Present Illness Initial Comments: This is a 4-year-old male who presents severely agitated with history of psychiatric illness polysubstance abuse coming in for severe agitation depression and suicidal ideation or homicidal thoughts. MD Complaint: suicidal ideation, feels depressed -: days(s) Associated Psychiatric Symptoms: depression, suicidal ideation History of same: Yes Quality: constant, intermittent Improves With: none, medication Context: not taking psychiatric medications, significant life stressor Associated Symptoms: denies other symptoms Treatments Prior to Arrival: placed on mental health hold If Self Harm: admits thoughts of self harm - Related Data Home Medications Medication Instructions Recorded Confirmed Cyclobenzaprine [Flexeril] 10 mg PO BID PRN 09/29/20 10/22/20 Previous Rx's Medication Instructions Recorded DULoxetine HCL [Cymbalta] 60 mg PO DAILY 30 Days capsule. 10/27/20 Nicotine 14Mg/24Hr Patch [Habitrol] 1 patch TRANSDERM DAILY 14 Days 10/27/20 patch cloNIDine HCL [Catapres] 0.1 mg PO BID PRN 3 Days tab 10/27/20 hydrOXYzine pamoate [Vistaril] 25 mg PO Q8HR PRN 14 Days cap 10/27/20 traZODone HCL [Desyrel] 150 mg PO HS 30 Days tab 10/27/20 Allergies Allergy/AdvReac Type Severity Reaction Status Date / Time No Known Allergies Allergy Verified 11/04/20 00:55 Review of Systems ROS Statement: Those systems with pertinent positive or pertinent negative responses have been documented in the HPI. ROS Other: All systems not noted in ROS Statement are negative. Past Medical History Past Medical History: No Reported History Additional Past Medical History / Comment(s): herniated disc History of Any Multi-Drug Resistant Organisms: MRSA Date of last positivie culture/infection: 12/03/15 MDRO Source:: BACK Past Surgical History: Orthopedic Surgery Additional Past Surgical History / Comment(s): left ankle pins & screws Past Psychological History: Anxiety, Depression Smoking Status: Current every day smoker Past Alcohol Use History: Rare Past Drug Use History: Heroin General Exam Limitations: no limitations General appearance: alert, in no apparent distress, anxious Head exam: Present: atraumatic, normocephalic, normal inspection Eye exam: Present: normal appearance, PERRL, EOMI. Absent: scleral icterus, conjunctival injection, periorbital swelling ENT exam: Present: normal exam, mucous membranes moist Neck exam: Present: normal inspection. Absent: tenderness, meningismus, lymphadenopathy Respiratory exam: Present: normal lung sounds bilaterally. Absent: respiratory distress, wheezes, rales, rhonchi, stridor Cardiovascular Exam: Present: regular rate, normal rhythm, normal heart sounds. Absent: systolic murmur, diastolic murmur, rubs, gallop, clicks GI/Abdominal exam: Present: soft, normal bowel sounds. Absent: distended, tenderness, guarding, rebound, rigid Extremities exam: Present: normal inspection, full ROM, normal capillary refill. Absent: tenderness, pedal edema, joint swelling, calf tenderness Back exam: Present: normal inspection Neurological exam: Present: alert, oriented X3, CN II-XII intact Psychiatric exam: Present: normal affect, normal mood Skin exam: Present: warm, dry, intact, normal color. Absent: rash Course Vital Signs 10/22/20 03:35 Temperature 97.7 F Pulse Rate 72 Respiratory 16 Rate Blood Pressure 127/76 O2 Sat by Pulse 100 Oximetry - Reevaluation(s) Reevaluation #1: Medical records reviewed Medical psychiatric evaluation Medical Decision Making - Medical Decision Making 40 male with severe substance abuse problems coming in for psychiatric evaluation and treatment will admit for psychiatric evaluation and management - Lab Data Result diagrams: 10/23/20 08:05 10/23/20 08:05 Lab Results 10/22/20 10/22/20 Range/Units 03:56 05:33 Urine Opiates Screen Detected H (NotDetected) Ur Oxycodone Screen Not Detected (NotDetected) Urine Methadone Screen Not Detected (NotDetected) Ur Propoxyphene Screen Not Detected (NotDetected) Ur Barbiturates Screen Not Detected (NotDetected) U Tricyclic Antidepress Not Detected (NotDetected) Ur Phencyclidine Scrn Not Detected (NotDetected) Ur Amphetamines Screen Detected H (NotDetected) U Methamphetamines Scrn Detected H (NotDetected) U Benzodiazepines Scrn Detected H (NotDetected) Urine Cocaine Screen Detected H (NotDetected) U Marijuana (THC) Screen Not Detected (NotDetected) Coronavirus (PCR) Not Detected (Not Detectd) Disposition Clinical Impression: Methamphetamine abuse, Benzodiazepine abuse, Cocaine use disorder, Suicidal ideation, Substance abuse Disposition: TRANSFER TO PSYCH HOSP/UNIT Condition: Stable Is patient prescribed a controlled substance at d/c from ED?: No
[2020-10-22 04:51] LABS: Amphetamine Screen,Urine Detected (NotDetected); Barbiturate Screen,Urine Not Detected (NotDetected); Benzodiazepines Screen,Urine Detected (NotDetected); Cocaine Screen,Urine Detected (NotDetected); Methadone Screen, Urine Not Detected (NotDetected); Opiate Screen,Urine Detected (NotDetected); Oxycodone Screen, Urine Not Detected (NotDetected); Phencyclidine Screen,Urine Not Detected (NotDetected); Tricyclic Antidepressant,Urine Not Detected (NotDetected); Urn Cannabinoid Scrn Not Detected (NotDetected)
[2020-10-22] MEDS ORDERED: MAGNESIUM HYDROXIDE 2,400 MG/10 ML CUP PO PRN (08:30)
[2020-10-22] MEDS ORDERED: MAG HYDROX/AL HYDROX/SIMETH 30 ML CUP PO PRN (08:30)
[2020-10-22] MEDS ORDERED: HALOPERIDOL LACTATE 5 MG/ML 1 ML VIAL IM PRN (08:33)
[2020-10-22] MEDS ORDERED: haloperidoL 5 MG TAB PO PRN (08:34)
[2020-10-22] MEDS ORDERED: LORazepam 2 MG/ML INJ IM PRN (08:35)
[2020-10-22] MEDS: NICOTINE 14MG/24HR PATCH TRANSDERM SCH (09:48)
[2020-10-22] MEDS: hydrOXYzine pamoate 25 MG CAP PO PRN ×2 (09:48→16:04)
[2020-10-22] MEDS: cloNIDine HCL 0.1 MG TAB PO PRN (11:37)
[2020-10-22] MEDS: ACETAMINOPHEN TAB 325 MG TAB PO PRN ×2 (12:24→16:04)
--- NOTE | 2020-10-22 13:42 | P.HP ---
Psychiatric H&P - . H&P Date: 10/22/20 History & Physical: Allergies Allergy/AdvReac Type Severity Reaction Status Date / Time No Known Allergies Allergy Verified 10/22/20 06:23 Vital Signs Temp 97.8 F 10/22/20 08:45 Pulse 89 10/22/20 08:45 Resp 16 10/22/20 08:45 BP 111/73 10/22/20 08:45 Pulse Ox 100 10/22/20 08:45 Intake & Output 10/21/20 10/22/20 10/22/20 18:59 06:59 18:59 Weight 90.718 kg Laboratory Last Values Urine Opiates Screen Detected (NotDetected) H 10/22/20 03:56 Ur Oxycodone Screen Not Detected (NotDetected) 10/22/20 03:56 Urine Methadone Screen Not Detected (NotDetected) 10/22/20 03:56 Ur Propoxyphene Screen Not Detected (NotDetected) 10/22/20 03:56 Ur Barbiturates Screen Not Detected (NotDetected) 10/22/20 03:56 U Tricyclic Antidepress Not Detected (NotDetected) 10/22/20 03:56 Ur Phencyclidine Scrn Not Detected (NotDetected) 10/22/20 03:56 Ur Amphetamines Screen Detected (NotDetected) H 10/22/20 03:56 U Methamphetamines Scrn Detected (NotDetected) H 10/22/20 03:56 U Benzodiazepines Scrn Detected (NotDetected) H 10/22/20 03:56 Urine Cocaine Screen Detected (NotDetected) H 10/22/20 03:56 U Marijuana (THC) Screen Not Detected (NotDetected) 10/22/20 03:56 Coronavirus (PCR) Not Detected (Not Detectd) 10/22/20 05:33 10/22/20 11:56 IDENTIFYING DATA: Patient is a 40-year-old male who is currently recently homeless and has 3 kids is single and is unemployed. HPI: Patient presented to the hospital yesterday with complaints of depression and suicidal thoughts. Patient was recently admitted to the mental health unit in late September 2020 for 3 days and treated for his substance withdrawal and depression however at that time patient declined wanting to go to rehab and wanted to go back home. He is admitting to mild opiate withdrawal symptoms including irritability and anxiety and upset stomach. He claims that he is feeling depressed at this time and is having suicidal thoughts due to the severe withdrawals that he is having. He claims that he was using heroin and methamphetamine however his UDS was positive for opiates, methamphetamine, benzodiazepines and cocaine. He claims that he wants to take Ativan for his withdrawals at this time. He has very poor insight and judgment. He appears to be impulsive. He was laying on the floor of his room and refused to leave the mattress. He appears to have poor hygiene and grooming. He claims that his sleep is poor. He does claim to hear vague auditory hallucinations however does not describe what they're saying them. He states that he has high anxiety at this time. Patient denies any flight of ideas racing thoughts and increased in goal directed behavior. Patient admits to using cigarettes and recreational drugs as listed above. He denies any alcohol use. PAST PSYCHIATRIC HISTORY: Patient states that he has a history of polysubstance abuse and depression and anxiety. He claims that he was previously on Cymbalta and trazodone in the past however he has not been taking the medication. Patient was previously admitted to the mental health unit and discharged on 10/02. Patient denies any psychiatric outpatient follow-up. Patient denies any history of suicide attempts in the past. PMH: Herniated disc with chronic back pain. ALLERGIES: as per EMR CHEMICAL DEPENDENCY HISTORY: as per HPI FAMILY PSYCHIATRIC/SUBSTANCE USE HISTORY: denies SOCIAL HISTORY: Patient was born and raised in [place]. He states that he completed his GED. He states that he currently is homeless and has 3 kids and is single. He states that he is currently unemployed. He claims that he has served senior care time several times for drug related charges including 5 DUIs in the past. MENTAL STATUS EXAM: General Appearance: Patient appears to be tall, appears to be in discomfort due to pain in his back and withdrawals, stated age is alert, directable, and guarded/evasive. Patient appears to have poor hygiene and grooming. Behavior: Patient is laying on the floor without any agitated behavior. Appears to be somewhat lethargic yet irritable Speech: Patient's speech is fluent and nonpressured. Mood/Affect: Patient reports their mood is "anxious and depressed", affect is congruent and irritable Suicidality/Homicidality: Patient denies having any homicidal ideation intent or plan. Denies any suicidal ideations intent or plan Perceptions: Patient denies any visual hallucinations and denies any auditory hallucinations Though content/process: Patient was focused on controlled medications. Poor insight and judgment. Memory and concentration: AOX3, grossly intact for the purposes of this session. Can spell "WORLD" backwards Judgment and insight: poor STRENGTHS/WEAKNESSES: strength is that patient is resilient. Weakness is that patient has poor judgment and is impulsive INTELLECT: average IMPRESSIONS: Depressive disorder unspecified Opiate abuse, currently in withdrawal Cannabis use disorder Methamphetamine abuse Benzodiazepine abuse Cocaine use disorder Nicotine dependence PLAN: -Patient is admitted under voluntary status to MHU for stabilization of psychiatric symptoms and safety. Patient has signed adult voluntary form and medication consent and is placed in patient's chart. -Medications : Will start patient on Cymbalta 30 mg daily for mood/anxiety/pain. We'll also start patient on trazodone 50 mg daily at bedtime for mood/insomnia. Vistaril when necessary for anxiety. -Clonidine and loperamide prn for opiate withdrawal symptoms. -Ativan and Haldol PRN for agitation/aggression -Patient was counselled on substance abuse and desired to cut back on use -Patient was informed of the risks, benefits and side effects of the medication and patient verbally consented to taking the medications. Patient signed med consent form and was placed in chart. -Internal Medicine consult to perform medical evaluation and physical. -NRT - nicotine patch -SW on board for discharge planning. Encourage patient to participate in groups to work on coping skills. We'll attempt to see if patient would like to go to rehab.
[2020-10-22] MEDS: LORazepam 1 MG TAB PO PRN (20:35)
[2020-10-22] MEDS ORDERED: traZODone HCL 50 MG TAB PO SCH (21:00)
--- NOTE | 2020-10-22 22:29 | P.CONS ---
History of Present Illness - Reason for Consult Consult date: 10/22/20 - History of Present Illness Patient is a 40-year-old male with a PMH of polysubstance abuse and tobacco abuse who presented to the emergency room with complaints of depression and suicidal ideation. The patient was admitted to the mental health unit where he was seen and evaluated. He reported continued thoughts of depression at time of interview. He also reported feeling tired which he attributes to his polysubstance abuse. Denied chest pain, shortness of breath, fever, chills. Also denied nausea, vomiting, abdominal pain, diarrhea. Denied weakness, numbness, tingling. Urine toxicology from the emergency room was positive for multiple substances including cocaine, methamphetamine, and opiates. The patient reports using IV heroin and IV methamphetamine almost on daily basis prior to presentation. Review of systems: Pertinent positives and negatives as discussed in HPI, a complete review of systems was performed and all other systems are negative. Physical examination: General: Disheveled, no distress, appears older than stated age, overweight Derm: Bilateral arm needle track frank noted, no unusual ecchymoses, warm, dry Head: atraumatic, normocephalic, symmetric Eyes: EOMI, no lid lag, anicteric sclera, pupils equal round reactive to light ENT: Nose and ears atraumatic, no thrush, no pharyngeal erythema Neck: No thyromegaly, no cervical lymphadenopathy, trachea midline, supple Mouth: no lip lesion, mucus membranes moist Cardiovascular: S1S2 reg, no murmur, positive posterior tibial pulse bilateral, no edema, capillary refill less than 2 seconds Lungs: CTA bilateral, no rhonchi, no rales , no accessory muscle use Abdominal: soft, nontender to palpation, no guarding, no appreciable organomegaly, normal bowel sounds Ext: no gross muscle atrophy, muscle strength 5 out of 5 in all 4 extremities grossly, no contractures, Neuro: CN II-XI grossly intact, light touch intact all 4 extremities, finger to nose within normal limits, Psych: Slightly lethargic, oriented to self and place and time, depressed affect Assessment/plan Polysubstance abuse -Strongly advised on importance of cessation Depression and suicidal ideation -As per psychiatry Past Medical History Past Medical History: No Reported History Additional Past Medical History / Comment(s): herniated disc History of Any Multi-Drug Resistant Organisms: MRSA Year Discovered:: 12/03/15 MDRO Source:: BACK Past Surgical History: Orthopedic Surgery Additional Past Surgical History / Comment(s): left ankle pins & screws Past Psychological History: Anxiety, Depression Smoking Status: Current every day smoker Past Alcohol Use History: Rare Past Drug Use History: Heroin Medications and Allergies Home Medications Medication Instructions Recorded Confirmed Type oxyCODONE HCL/ACETAMINOPHEN 1 tab PO TID PRN 08/11/16 10/22/20 History [Percocet 10-325 mg] Cyclobenzaprine [Flexeril] 10 mg PO BID PRN 09/29/20 10/22/20 History Acetaminophen Tab [Tylenol] 650 mg PO Q4HR PRN tab 10/02/20 10/22/20 Rx DULoxetine HCL [Cymbalta] 30 mg PO DAILY 30 Days capsule. 10/02/20 10/22/20 Rx Loperamide [Imodium] 2 mg PO QID PRN 5 Days cap 10/02/20 10/22/20 Rx Nicotine 14Mg/24Hr Patch [Habitrol] 1 patch TRANSDERM DAILY 30 Days 10/02/20 10/22/20 Rx patch cloNIDine HCL [Catapres] 0.1 mg PO BID PRN 5 Days tab 10/02/20 10/22/20 Rx traZODone HCL [Desyrel] 50 mg PO HS 30 Days tab 10/02/20 10/22/20 Rx Allergies Allergy/AdvReac Type Severity Reaction Status Date / Time No Known Allergies Allergy Verified 10/22/20 06:23 Physical Exam Vitals: Vital Signs Temp Pulse Pulse Resp BP BP Pulse Ox 10/22/20 16:07 102 H 107/74 10/22/20 13:38 97 16 109/70 10/22/20 08:45 97.8 F 89 16 111/73 100 10/22/20 03:35 97.7 F 72 16 127/76 100 Intake and Output 10/22/20 10/22/20 10/22/20 06:59 14:59 22:59 Other: Weight 90.718 kg Results Labs: Abnormal Lab Results - Last 24 Hours (Table) 10/22/20 Range/Units 03:56 Urine Opiates Screen Detected H (NotDetected) Ur Amphetamines Screen Detected H (NotDetected) U Methamphetamines Scrn Detected H (NotDetected) U Benzodiazepines Scrn Detected H (NotDetected) Urine Cocaine Screen Detected H (NotDetected)
[2020-10-23] MEDS: DULoxetine HCL 30 MG CAPSULE.DR PO SCH (08:24)
[2020-10-23] MEDS: NICOTINE 14MG/24HR PATCH TRANSDERM SCH (08:24)
[2020-10-23] MEDS: cloNIDine HCL 0.1 MG TAB PO PRN (08:25)
[2020-10-23] MEDS: LORazepam 1 MG TAB PO PRN ×2 (08:26→17:20)
[2020-10-23 09:47] LABS: Basophils % (A) 0 %; Eosinophils % (A) 1 %; HCT 46.9 % (39.0-53.0); HGB 15.8 gm/dL (13.0-17.5); Lymphocytes % (A) 28 %; MCH 30.5 pg (25.0-35.0); MCHC 33.8 g/dL (31.0-37.0); MCV 90.2 fL (80.0-100.0); Mean Platelet Volume 7.2; Monocytes # (A) 0.4 k/uL (0-1.0); Monocytes % (A) 6 %; Neutrophils # (A) 4.4 k/uL (1.3-7.7); Neutrophils % (A) 63 %; Platelet Count 370 k/uL (150-450); RDW 12.9 % (11.5-15.5)
[2020-10-23 10:05] LABS: ALT 30 U/L (4-49); AST 47 U/L (17-59); African American GFR (CKD) >90 (>60 ml/min/1.73 sqM); Albumin 4.6 g/dL (3.5-5.0); Alkaline Phosphatase 154 U/L (38-126); Anion Gap 10 mmol/L; Blood Urea Nitrogen 5 mg/dL (9-20); Calcium 9.7 mg/dL (8.4-10.2); Carbon Dioxide 22 mmol/L (22-30); Chloride 106 mmol/L (98-107); Glucose 96 mg/dL (74-99); Non-African American GFR(CKD) >90 (>60 ml/min/1.73 sqM); Sodium 138 mmol/L (137-145); Total Bilirubin 0.7 mg/dL (0.2-1.3); Total Protein 8.4 g/dL (6.3-8.2)
[2020-10-23] MEDS ORDERED: LOPERAMIDE 2 MG CAP PO PRN (11:27)
[2020-10-23] MEDS ORDERED: DICYCLOMINE 20 MG TAB PO PRN (11:27)
--- NOTE | 2020-10-23 11:27 | P.PN ---
Progress Note - Text Progress Note Date: 10/23/20 Interval History: Patient was seen laying on the floor on his mattress in his room and was direc table and agreeable to speak with film writer. Patient appeared to be restless at times tossing and turning on the floor. He appeared to be somewhat lethargic today. He claims that his mood has been depressed and he is feeling anxious. He states that he is still having withdrawal symptoms however the improving mildly. He claims that he has some diarrhea yesterday however that has gotten better today. He states that he had poor sleep last night. He claims that he's been taking his medications. He is a very poor insight into his condition and need for help. He claims that he did not want to talk about rehab today. At this time patient denies any suicidal or homical ideations, intent or plan. Patient denies any auditory, visual hallucinations and denies any paranoia or delusions. Patient denies any side effects from the medications and has been compliant with meds. Mental Status Exam: General Appearance: Patient appears to be tall, appears to be in discomfort due to pain in his back and withdrawals, stated age is alert, directable, and guarded/evasive. Patient appears to have poor hygiene and grooming. Behavior: Patient is laying on the floor without any agitated behavior. Appears to be somewhat lethargic Speech: Patient's speech is fluent and nonpressured. Mood/Affect: Patient reports their mood is "anxious and depressed" however is mildly improving, affect is congruent and irritable Suicidality/Homicidality: Patient denies having any homicidal ideation intent or plan. Denies any suicidal ideations intent or plan Perceptions: Patient denies any visual hallucinations and denies any auditory hallucinations Though content/process: Patient was focused on controlled medications. Poor insight and judgment. Memory and concentration: AOX3, grossly intact for the purposes of this session. Can spell "WORLD" backwards Judgment and insight: poor Assessment Depressive disorder unspecified Opiate abuse, currently in withdrawal Cannabis use disorder Methamphetamine abuse Benzodiazepine abuse Cocaine use disorder Nicotine dependence Plan: -Patient continues to meet criteria for inpatient psychiatric admission for symptom stabilization and safety. Patient has not signed medication consent and was placed in patient's chart. he is currently voluntary. -Medications: Continue Cymbalta 30 mg daily for mood/anxiety/pain, increased trazodone 100 mg nightly for mood/insomnia, Vistaril when necessary for anxiety. -clonidine and loperamide prn for diarrhea -When necessary Ativan and Haldol for agitation/aggression. -NRT - nicotine patch -SW on board for discharge planning. Encouraged the patient to participate in milieu. We'll attempt to see if patient would like to go to rehab.
[2020-10-23] MEDS: hydrOXYzine pamoate 25 MG CAP PO PRN (12:00)
[2020-10-23 17:43] LABS: Chol/HDL Ratio 3.19; Cholesterol 166 mg/dL (0-200); LDL Cholesterol,Calculated 96.2 mg/dL (0.0-131.0)
[2020-10-23] MEDS: traZODone HCL 100 MG TAB PO SCH (20:51)
[2020-10-24] MEDS: DULoxetine HCL 30 MG CAPSULE.DR PO SCH (08:59)
[2020-10-24] MEDS: NICOTINE 14MG/24HR PATCH TRANSDERM SCH (08:59)
--- NOTE | 2020-10-24 11:41 | P.PN ---
Progress Note - Text Progress Note Date: 10/24/20 Interval History: Patient was seen laying on the floor on his mattress in his room and was more directable today. He was agreeable to speak to poem writer however once again he did not want to leave his room. He claims that he is doing mildly better in terms of his withdrawal symptoms. He states that his mood has been improving mildly and requested to have his Cymbalta increased due to his anxiety. Patient appeared to be restless at times tossing and turning on the floor. He states that he had better sleep last night with the trazodone. He claims that he's been taking his medications. Patient's insight has been mildly improving and he states that he wants to go to rehab as he is homeless upon discharge. At this time patient denies any suicidal or homical ideations, intent or plan. Patient denies any auditory, visual hallucinations and denies any paranoia or delusions. Patient denies any side effects from the medications and has been compliant with meds. Mental Status Exam: General Appearance: Patient appears to be tall, appears to be in discomfort due to pain in his back and withdrawals, stated age is alert, directable, and guarded/evasive. Patient appears to have mildly improving hygiene and grooming. Behavior: Patient is laying on the floor without any agitated behavior. Appears to be somewhat lethargic Speech: Patient's speech is fluent and nonpressured. Mood/Affect: Patient reports their mood is "a bit better" however is mildly improving, affect is congruent Suicidality/Homicidality: Patient denies having any homicidal ideation intent or plan. Denies any suicidal ideations intent or plan Perceptions: Patient denies any visual hallucinations and denies any auditory hallucinations Though content/process: Patient was focused on his medications. [place], poverty of content Memory and concentration: AOX3, grossly intact for the purposes of this session. Judgment and insight: poor, improving mildly Assessment Depressive disorder unspecified Opiate abuse, currently in withdrawal Cannabis use disorder Methamphetamine abuse Benzodiazepine abuse Cocaine use disorder Nicotine dependence Plan: -Patient continues to meet criteria for inpatient psychiatric admission for symptom stabilization and safety. Patient has not signed medication consent and was placed in patient's chart. he is currently voluntary. -Medications: Increased Cymbalta 60 mg daily for mood/anxiety/pain, trazodone 100 mg nightly for mood/insomnia, Vistaril when necessary for anxiety. -clonidine prn for opiate w/d and loperamide prn for diarrhea -When necessary Ativan and Haldol for agitation/aggression. -NRT - nicotine patch -SW on board for discharge planning. Encouraged the patient to participate in milieu. SW to give patient number to call for rehab today. Likely discharge tuesday.
[2020-10-24] MEDS: traZODone HCL 100 MG TAB PO SCH ×2 (20:40→21:37)
[2020-10-24] MEDS: LORazepam 1 MG TAB PO PRN (20:51)
[2020-10-25 05:11] VITALS: RESP 18
[2020-10-25] MEDS: NICOTINE 14MG/24HR PATCH TRANSDERM SCH (08:23)
[2020-10-25] MEDS: DULoxetine HCL 60 MG CAPSULE.DR PO SCH (08:24)
--- NOTE | 2020-10-25 14:20 | P.PN ---
Progress Note - Text Progress Note Date: 10/25/20 Subjective: Patient was seen today as a cross coverage for . The patient was evaluated, chart reviewed, case discussed with the treatment team. Patient reports broken and interrupted sleep last night, and appetite was reported as " fair ". Patient has not been going to groups and other unit activities. The patient is compliant with his medications and denies any adverse reactions. Patient reports feeling better emotionally and minimize his depression today. He denies suicidal ideation. Denies mood swings, anger, or agitation, but reports feeling some anxiety. Denies any hallucinations, paranoid ideation, or delusions. No manic symptoms have been reported or noticed. Objective: Vitals has been reviewed. Mental status examination; Appearance: The patient appears stated age, adequately groomed and dressed, no specific features. Gait/posture: Normal gait, Normal arm swinging: No abnormal movements. Attitude and behavior: engaged, cooperative, eye contact. Motor activity: Normal psychomotor activity Speech: Normal rate, tone. Mood: "Anxious" Affect: Constricted Thought form: goal-directed, linear, coherent. Thought content: Non-delusional, denies suicidal thoughts, denies homicidal thoughts, denies intentions or plans. Perception: Denies any auditory or visual hallucinations Attention: No impairment. Orientation: Patient patient was fully oriented to time place person and situation. Insight: Patient has fair insight about his psychiatric disorder. Judgment: Patient has fair judgment about his psychiatric treatment. Assessment: Depressive disorder unspecified Opiate abuse, currently in withdrawal Cannabis use disorder Methamphetamine abuse Benzodiazepine abuse Cocaine use disorder Nicotine dependence Plan: Continue inpatient level of care due to need for further monitoring and stabilization Precautions: Continue 15 minutes check for safety. Consider medical consultation if any acute medical issues arise. Provide the patient individual, group therapy, substance use disorder counseling to give better insight and learn coping skills. Medications: Continue Cymbalta for depression and anxiety symptoms, and trazodone at bedtime to help with insomnia and depression. Continue as needed medications for psychiatric emergencies including psychosis, agitation and anxiety. Continue non-psychiatric medications for medical conditions as recommended by the medical team. Discharge patient to OUTPATIENT services upon a stabilization
[2020-10-25] MEDS: LORazepam 1 MG TAB PO PRN (19:05)
[2020-10-25] MEDS: cloNIDine HCL 0.1 MG TAB PO PRN (19:05)
[2020-10-25] MEDS: traZODone HCL 50 MG TAB PO SCH (21:16)
[2020-10-26] MEDS: DULoxetine HCL 60 MG CAPSULE.DR PO SCH (08:35)
[2020-10-26] MEDS: NICOTINE 14MG/24HR PATCH TRANSDERM SCH (08:35)
[2020-10-26] MEDS: ACETAMINOPHEN TAB 325 MG TAB PO PRN ×2 (08:36→18:42)
[2020-10-26] MEDS: cloNIDine HCL 0.1 MG TAB PO PRN (08:38)
[2020-10-26] MEDS: LORazepam 1 MG TAB PO PRN ×2 (08:38→18:42)
--- NOTE | 2020-10-26 13:55 | P.PN ---
Progress Note - Text Progress Note Date: 10/26/20 Subjective: Patient was seen today as a cross coverage for . The patient was evaluated, chart reviewed, case discussed with the treatment team. Patient reports that her sleep last night after increase trazodone and he slept about 6 hours compared with 3 hours. Generally feels a stable emotionally and denies depression, hopelessness, or suicidal. He denies any active symptoms of anxiety or mood instability. Patient continues to go to groups and other unit activities, and he takes his medication with no side effects reported. Denies any appetite problem. He requested to discuss discharge and was educated to address that with the primary psychiatric team. Objective: Vitals has been reviewed. Mental status examination; Appearance: The patient appears stated age, adequately groomed and dressed, no specific features. Gait/posture: Normal gait, Normal arm swinging: No abnormal movements. Attitude and behavior: engaged, cooperative, eye contact. Motor activity: Normal psychomotor activity Speech: Normal rate, tone. Mood: "Fine" Affect: Constricted Thought form: goal-directed, linear, coherent. Thought content: Non-delusional, denies suicidal thoughts, denies homicidal thoughts, denies intentions or plans. Perception: Denies any auditory or visual hallucinations Attention: No impairment. Orientation: Patient patient was fully oriented to time place person and situation. Insight: Patient has fair insight about his psychiatric disorder. Judgment: Patient has fair judgment about his psychiatric treatment. Assessment: Depressive disorder unspecified Opiate abuse, currently in withdrawal Cannabis use disorder Methamphetamine abuse Benzodiazepine abuse Cocaine use disorder Nicotine dependence Plan: Continue inpatient level of care due to need for further monitoring and stabilization Precautions: Continue 15 minutes check for safety. Consider medical consultation if any acute medical issues arise. Provide the patient individual, group therapy, substance use disorder counseling to give better insight and learn coping skills. Medications: Continue Cymbalta for depression and anxiety symptoms, and trazodone at bedtime to help with insomnia and depression. Continue as needed medications for psychiatric emergencies including psychosis, agitation and anxiety. Continue non-psychiatric medications for medical conditions as recommended by the medical team. Discharge patient to OUTPATIENT services upon a stabilization
[2020-10-26] MEDS: traZODone HCL 50 MG TAB PO SCH (21:05)
[2020-10-27 06:50] VITALS: BP 105/69; PULSE 121; TEMP 98
[2020-10-27] MEDS: LORazepam 1 MG TAB PO PRN (08:38)
[2020-10-27] MEDS: NICOTINE 14MG/24HR PATCH TRANSDERM SCH (08:38)
[2020-10-27] MEDS: DULoxetine HCL 60 MG CAPSULE.DR PO SCH (08:38)
--- NOTE | 2020-10-27 10:15 | P.DS ---
Providers Date of admission: 10/22/20 08:24 Expected date of discharge: 10/27/20 Attending physician: Moshe Stauffer MD Consults: 10/22/20 08:30 Consult Physician Routine Consulting Provider: Eloy Physician Consult Reason/Comments: Medical Management Do you want consulting provider notified?: Yes Primary care physician: Stated None - Discharge Diagnosis(es) (1) Depressive disorder Current Visit: Yes Status: Acute Priority: High (2) Opiate abuse, continuous Current Visit: Yes Status: Acute Priority: Medium (3) Cannabis use disorder, mild, abuse Current Visit: Yes Status: Acute Priority: Medium (4) Methamphetamine abuse Current Visit: Yes Status: Acute Priority: Medium (5) Benzodiazepine abuse, episodic Current Visit: Yes Status: Acute Priority: Medium (6) Cocaine use disorder Current Visit: Yes Status: Acute Priority: Medium (7) Nicotine dependence Current Visit: Yes Status: Acute Priority: Low Hospital Course: Admission HPI: Admission note was completed by grant writer "Patient is a 40-year-old male who is currently recently homeless and has 3 kids is single and is unemployed. Patient presented to the hospital yesterday with complaints of depression and suicidal thoughts. Patient was recently admitted to the mental health unit in late September 2020 for 3 days and treated for his substance withdrawal and depression however at that time patient declined wanting to go to rehab and wanted to go back home. He is admitting to mild opiate withdrawal symptoms including irritability and anxiety and upset stomach. He claims that he is feeling depressed at this time and is having suicidal thoughts due to the severe withdrawals that he is having. He claims that he was using heroin and methamphetamine however his UDS was positive for opiates, methamphetamine, benzodiazepines and cocaine. He claims that he wants to take Ativan for his withdrawals at this time. He has very poor insight and judgment. He appears to be impulsive. He was laying on the floor of his room and refused to leave the mattress. He appears to have poor hygiene and grooming. He claims that his sleep is poor. He does claim to hear vague auditory hallucinations however does not describe what they're saying them. He states that he has high anxiety at this time. Patient denies any flight of ideas racing thoughts and increased in goal directed behavior. Patient admits to using cigarettes and recreational drugs as listed above. He denies any alcohol use." Hospital course: Upon admission to the unit patient was initially depressed and going through severe withdrawals from substances. Patient was however directable and agreeable to commence treatment and signed adult voluntary form. Patient in the isolated in his room going through withdrawals however with time and treatment, he got along well with other patients on the unit and followed unit protocol. Patient did sign an AMA form on tuesday as he felt that he wanted to be discharged and was feeling better over the weekend. Patient was compliant with the medications and denied any side effects throughout hospital course. Patient was started on prn medications for withdrawal including clonidine, loperamide, bentyl and vistaril. Patient was also restarted on Cymbalta and titrated up to dose of 60 mg daily for mood/anxiety/pain and also started on trazodone and titrated up to a dose of 150mg qhs for insomnia/mood. Patient spoke of his stressors and engaged in therapy both group and individual. Patient was also seen by medical team for history and physical exam. Throughout the course of the hospitalization patient gradually improved with regards to mood, anxiety, sleep and became more future oriented with improved insight and judgment. On the day of discharge patient denied any suicidal or homicidal ideations intent or plan denied any auditory or visual hallucinations. Patient endorsed wanting to live to maintain sobriety and for his future.] The patient denied any access to guns or weapons. Patient denied any paranoia and did not endorse any delusions. Patient does have a significant history of substance abuse and was counseled on abstaining from all substances including alcohol and marijuana. Patient attempted to get into [facility] and they have received his application and SW will follow up with them today to get an intake date within the next couple of days. Patient was also counseled on the medications and need for regular compliance and was encouraged to follow-up with their outpatient appointment for mental health and also for primary care. Mental status exam: General Appearance: Patient appears to be tall, stated age is alert, pleasant, and cooperative. Patient is in no acute distress and has improved hygiene and grooming. Poor dentition Behavior: Patient is calmly seated without any agitated behavior. More cooperative today Speech: Patient's speech is fluent and nonpressured. Mood/Affect: Patient reports their mood is "better", affect is congruent Suicidality/Homicidality: Patient denies having any suicidal or homicidal ideation intent or plan. Perceptions: Patient denies any auditory or visual hallucinations. Though content/process: Future oriented. Logical. Memory and concentration: AOX3, grossly intact for the purposes of this session. Can spell "WORLD" backwards correctly. Judgment and insight: chronically poor, however has improved with guarded prognosis Impression: Depressive disorder unspecified Opiate use disorder, continuous Methamphetamine abuse Benzodiazepine abuse Cocaine use disorder Nicotine dependence Plan: -Continue with discharge today as patient has improved and stabilized psychiatrically and is not currently an imminent threat to himself and/or others. Patient will remain at chronically elevated risk for harm to self and/or others due to his impulsivity and polysubstance abuse. -Continue medications: Cymbalta 60 mg daily for mood/anxiety/pain, trazodone 150 mg daily at bedtime for mood/insomnia, Vistaril when necessary for anxiety. -Patient was counseled on the need for medication compliance and appropriate follow-up at mental health and also primary care for medical issues. Patient verbalized understanding and agreed. -Social work to help arrange the intake dated [facility] and also arrange for patient to go to his friend's house upon discharge to wait until [facility] intake. Social work also to arrange for patients follow up appointments with [facility] for psychiatric care along with follow up with primary care provider. -Patient counseled on abstaining from recreational drugs and marijuana and alcohol. Was informed/educated on the adverse effects on their physical and mental health. Patient verbally agreed and understood. -Patient was instructed to return to the hospital or seek immediate medical care if their psychiatric or medical symptoms do worsen or reoccur. Allergies Allergy/AdvReac Type Severity Reaction Status Date / Time No Known Allergies Allergy Verified 10/22/20 06:23 Laboratory Results WBC 7.0 k/uL (3.8-10.6) 10/23/20 08:05 RBC 5.20 m/uL (4.30-5.90) 10/23/20 08:05 Hgb 15.8 gm/dL (13.0-17.5) 10/23/20 08:05 Hct 46.9 % (39.0-53.0) 10/23/20 08:05 MCV 90.2 fL (80.0-100.0) 10/23/20 08:05 MCH 30.5 pg (25.0-35.0) 10/23/20 08:05 MCHC 33.8 g/dL (31.0-37.0) 10/23/20 08:05 RDW 12.9 % (11.5-15.5) 10/23/20 08:05 Plt Count 370 k/uL (150-450) 10/23/20 08:05 MPV 7.2 10/23/20 08:05 Neutrophils % 63 % 10/23/20 08:05 Lymphocytes % 28 % 10/23/20 08:05 Monocytes % 6 % 10/23/20 08:05 Eosinophils % 1 % 10/23/20 08:05 Basophils % 0 % 10/23/20 08:05 Neutrophils # 4.4 k/uL (1.3-7.7) 10/23/20 08:05 Lymphocytes # 2.0 k/uL (1.0-4.8) 10/23/20 08:05 Monocytes # 0.4 k/uL (0-1.0) 10/23/20 08:05 Eosinophils # 0.0 k/uL (0-0.7) 10/23/20 08:05 Basophils # 0.0 k/uL (0-0.2) 10/23/20 08:05 Sodium 138 mmol/L (137-145) 10/23/20 08:05 Potassium 5.0 mmol/L (3.5-5.1) 10/23/20 08:05 Chloride 106 mmol/L (98-107) 10/23/20 08:05 Carbon Dioxide 22 mmol/L (22-30) 10/23/20 08:05 Anion Gap 10 mmol/L 10/23/20 08:05 BUN 5 mg/dL (9-20) L 10/23/20 08:05 Creatinine 0.75 mg/dL (0.66-1.25) 10/23/20 08:05 Est GFR (CKD-EPI)AfAm >90 (>60 ml/min/1.73 sqM) 10/23/20 08:05 Est GFR (CKD-EPI)NonAf >90 (>60 ml/min/1.73 sqM) 10/23/20 08:05 Glucose 96 mg/dL (74-99) 10/23/20 08:[address] Glu mg/dL 111 10/23/20 08:05 Hemoglobin A1c 5.5 % (4.0-6.0) 10/23/20 08:05 Calcium 9.7 mg/dL (8.4-10.2) 10/23/20 08:05 Total Bilirubin 0.7 mg/dL (0.2-1.3) 10/23/20 08:05 AST 47 U/L (17-59) 10/23/20 08:05 ALT 30 U/L (4-49) 10/23/20 08:05 Alkaline Phosphatase 154 U/L (38-126) H 10/23/20 08:05 Total Protein 8.4 g/dL (6.3-8.2) H 10/23/20 08:05 Albumin 4.6 g/dL (3.5-5.0) 10/23/20 08:05 Triglycerides 89.0 mg/dL (0.0-149.0) 10/23/20 08:05 Cholesterol 166 mg/dL (0-200) 10/23/20 08:05 LDL Cholesterol, Calc 96.2 mg/dL (0.0-131.0) 10/23/20 08:05 VLDL Cholesterol, Calc 17.80 mg/dL (5.00-40.00) 10/23/20 08:05 HDL Cholesterol 52.0 mg/dL (40.0-60.0) 10/23/20 08:05 Cholesterol/HDL Ratio 3.19 10/23/20 08:05 TSH 0.429 mIU/L (0.465-4.680) L 10/23/20 08:05 Urine Opiates Screen Detected (NotDetected) H 10/22/20 03:56 Ur Oxycodone Screen Not Detected (NotDetected) 10/22/20 03:56 Urine Methadone Screen Not Detected (NotDetected) 10/22/20 03:56 Ur Propoxyphene Screen Not Detected (NotDetected) 10/22/20 03:56 Ur Barbiturates Screen Not Detected (NotDetected) 10/22/20 03:56 U Tricyclic Antidepress Not Detected (NotDetected) 10/22/20 03:56 Ur Phencyclidine Scrn Not Detected (NotDetected) 10/22/20 03:56 Ur Amphetamines Screen Detected (NotDetected) H 10/22/20 03:56 U Methamphetamines Scrn Detected (NotDetected) H 10/22/20 03:56 U Benzodiazepines Scrn Detected (NotDetected) H 10/22/20 03:56 Urine Cocaine Screen Detected (NotDetected) H 10/22/20 03:56 U Marijuana (THC) Screen Not Detected (NotDetected) 10/22/20 03:56 Coronavirus (PCR) Not Detected (Not Detectd) 10/22/20 05:33 Vital Signs Temp 98.0 F 10/27/20 06:48 Pulse 121 H 10/27/20 06:48 Resp 18 10/27/20 06:48 BP 105/69 10/27/20 06:48 Pulse Ox 100 10/22/20 08:45 Intake & Output 10/26/20 10/27/20 10/27/20 18:59 06:59 18:59 Weight 86 kg Patient Condition at Discharge: Stable Plan - Discharge Summary New Discharge Prescriptions: New cloNIDine HCL [Catapres] 0.1 mg PO BID PRN 3 Days tab PRN Reason: opiate withdrawal hydrOXYzine pamoate [Vistaril] 25 mg PO Q8HR PRN 14 Days cap PRN Reason: Agitation Or Acute Anxiety DULoxetine HCL [Cymbalta] 60 mg PO DAILY 30 Days capsule. traZODone HCL [Desyrel] 150 mg PO HS 30 Days tab Nicotine 14Mg/24Hr Patch [Habitrol] 1 patch TRANSDERM DAILY 14 Days patch Continue Cyclobenzaprine [Flexeril] 10 mg PO BID PRN PRN Reason: Muscle Pain Discontinued oxyCODONE HCL/ACETAMINOPHEN [Percocet 10-325 mg] 1 tab PO TID PRN PRN Reason: Pain cloNIDine HCL [Catapres] 0.1 mg PO BID PRN 5 Days tab PRN Reason: opioid w/d sx traZODone HCL [Desyrel] 50 mg PO HS 30 Days tab DULoxetine HCL [Cymbalta] 30 mg PO DAILY 30 Days capsule. Nicotine 14Mg/24Hr Patch [Habitrol] 1 patch TRANSDERM DAILY 30 Days patch Loperamide [Imodium] 2 mg PO QID PRN 5 Days cap PRN Reason: Diarrhea Acetaminophen Tab [Tylenol] 650 mg PO Q4HR PRN tab PRN Reason: Pain/Discomfort Discharge Medication List Cyclobenzaprine [Flexeril] 10 mg PO BID PRN 09/29/20 [History] DULoxetine HCL [Cymbalta] 60 mg PO DAILY 30 Days capsule. 10/27/20 [Rx] Nicotine 14Mg/24Hr Patch [Habitrol] 1 patch TRANSDERM DAILY 14 Days patch 10/27/20 [Rx] cloNIDine HCL [Catapres] 0.1 mg PO BID PRN 3 Days tab 10/27/20 [Rx] hydrOXYzine pamoate [Vistaril] 25 mg PO Q8HR PRN 14 Days cap 10/27/20 [Rx] traZODone HCL [Desyrel] 150 mg PO HS 30 Days tab 10/27/20 [Rx] Follow up Appointment(s)/Referral(s): None,Stated [Primary Care Provider] - 1-2 days Activity/Diet/Wound Care/Special Instructions: Activity and diet as tolerated. Avoid the use of street drugs and alcohol. Take all medications as prescribed. When you are in need of refills on your medications please contact your medical provider and/or outpatient psychiatrist to have this done. Please go to scheduled outpatient appointment for aftercare treatment. If symptoms return or become worse, call the crisis line at and/or go to the nearest emergency room for evaluation. Discharge Disposition: OTHER INSTITUTION NOT DEFINED
== END 2020-10-27 13:54 | disposition home or self-care (01) | DRG 881 ==
LOC: EC 03:26 → 3MHU 08:24
PROVIDERS: ADMIT Psychiatry & Neurology Psychiatry; ATTEND Psychiatry & Neurology Psychiatry
DX: F32.9 Major depressive disorder, single episode, unspecified (principal); F11.23 Opioid dependence with withdrawal; R45.851 Suicidal ideations; F12.10 Cannabis abuse, uncomplicated; F13.10 Sedative, hypnotic or anxiolytic abuse, uncomplicated; F14.10 Cocaine abuse, uncomplicated; F15.10 Other stimulant abuse, uncomplicated; F17.200 Nicotine dependence, unspecified, uncomplicated; F41.9 Anxiety disorder, unspecified; G47.00 Insomnia, unspecified; Z56.0 Unemployment, unspecified; Z59.0 Homelessness; Z79.899 Other long term (current) drug therapy; Z20.822 Contact with and (suspected) exposure to COVID-19
CPT/HCPCS: 80053; 80061; 80306; 82075; 83036; 84443; 85025; 87635; 99285

== ENCOUNTER 2020-11-04 00:50 | Emergency (ER) | payer OTHER ==
[2020-11-04 00:55] VITALS: BP 114/67; PULSE 97; RESP 18; TEMP 97.5
--- NOTE | 2020-11-04 01:38 | ED ---
General Adult HPI - General Chief complaint: Extremity Injury, Lower Stated complaint: Infection under nails Time Seen by Provider: 11/04/20 01:17 Source: patient Mode of arrival: ambulatory Limitations: no limitations - History of Present Illness Initial comments: 40-year-old male presents to the emergency room for a chief complaint of toe infection. Patient states the toenails of both his feet look infected. States that this is an ongoing for months. States his nails are more yellow than normal. Patient states that sometimes this causes pain. Patient denies fevers.Patient has no other complaints at this time including shortness of breath, chest pain, abdominal pain, nausea or vomiting, headache, or visual changes. - Related Data Home Medications Medication Instructions Recorded Confirmed Cyclobenzaprine [Flexeril] 10 mg PO BID PRN 09/29/20 10/22/20 Previous Rx's Medication Instructions Recorded DULoxetine HCL [Cymbalta] 60 mg PO DAILY 30 Days capsule. 10/27/20 Nicotine 14Mg/24Hr Patch [Habitrol] 1 patch TRANSDERM DAILY 14 Days 10/27/20 patch cloNIDine HCL [Catapres] 0.1 mg PO BID PRN 3 Days tab 10/27/20 hydrOXYzine pamoate [Vistaril] 25 mg PO Q8HR PRN 14 Days cap 10/27/20 traZODone HCL [Desyrel] 150 mg PO HS 30 Days tab 10/27/20 Allergies Allergy/AdvReac Type Severity Reaction Status Date / Time No Known Allergies Allergy Verified 11/04/20 00:55 Review of Systems ROS Statement: Those systems with pertinent positive or pertinent negative responses have been documented in the HPI. ROS Other: All systems not noted in ROS Statement are negative. Past Medical History Past Medical History: No Reported History Additional Past Medical History / Comment(s): herniated disc History of Any Multi-Drug Resistant Organisms: MRSA Date of last positivie culture/infection: 12/03/15 MDRO Source:: BACK Past Surgical History: Orthopedic Surgery Additional Past Surgical History / Comment(s): left ankle pins & screws Past Psychological History: Anxiety, Depression Smoking Status: Current every day smoker Past Alcohol Use History: Rare Past Drug Use History: Heroin General Exam Limitations: no limitations General appearance: alert, in no apparent distress Head exam: Present: atraumatic, normocephalic, normal inspection Eye exam: Present: normal appearance, PERRL, EOMI. Absent: scleral icterus, conjunctival injection, periorbital swelling ENT exam: Present: normal exam, mucous membranes moist Neck exam: Present: normal inspection, full ROM. Absent: tenderness, meningismus, lymphadenopathy Respiratory exam: Present: normal lung sounds bilaterally. Absent: respiratory distress, wheezes, rales, rhonchi, stridor Cardiovascular Exam: Present: regular rate, normal rhythm, normal heart sounds. Absent: systolic murmur, diastolic murmur, rubs, gallop, clicks Extremities exam: Present: other (Patient has onychomycosis of the bilateral toenails. There is no abscess, paronychia, cellulitis or evidence of bacterial infection.) Course Vital Signs 11/04/20 00:53 Temperature 97.5 F L Pulse Rate 97 Respiratory 18 Rate Blood Pressure 114/67 O2 Sat by Pulse 96 Oximetry Medical Decision Making - Medical Decision Making Discussed keeping shoes and socks as dry as possible. He will follow-up with his doctor. He'll return for any worsening symptoms. Disposition Clinical Impression: Onychomycosis Disposition: HOME SELF-CARE Condition: Good Instructions (If sedation given, give patient instructions): R.I.C.E. Treatment (ED) Additional Instructions: Keep shoes and socks dry. Please follow up with dermatology or primary care. Return to the emergency room for any worsening symptoms. Is patient prescribed a controlled substance at d/c from ED?: No Referrals: Dalia Holliday MD [STAFF PHYSICIAN] - 1-2 days Irasema Park MD [REFERRING] - 1-2 days Time of Disposition: 01:36
== END 2020-11-04 01:44 | disposition home or self-care (01) ==
LOC: EC 00:50
DX: B35.1 Tinea unguium (principal); F32.9 Major depressive disorder, single episode, unspecified; F41.9 Anxiety disorder, unspecified; F17.200 Nicotine dependence, unspecified, uncomplicated; F11.90 Opioid use, unspecified, uncomplicated; Z79.899 Other long term (current) drug therapy
CPT/HCPCS: 99283

== ENCOUNTER 2020-11-18 03:46 | Emergency (ER) | payer OTHER ==
[2020-11-18 03:53] VITALS: BP 106/53; PULSE 94; RESP 20; TEMP 98
== END 2020-11-18 04:29 ==
LOC: EC 03:46
DX: Z53.21 Procedure and treatment not carried out due to patient leaving prior to being seen by health care provider (principal)
CPT/HCPCS: 99284; 99499

== ENCOUNTER 2024-04-08 14:52 | Emergency (ER) | payer OTHER ==
[2024-04-08 15:06] VITALS: BP 108/73; PULSE 91; RESP 18; TEMP 97.8
[2024-04-08 16:01] LABS: Basophils % (A) 0 %; Eosinophils # (A) 0.1 k/uL (0-0.7); Eosinophils % (A) 2 %; HCT 43.1 % (39.0-53.0); HGB 13.8 gm/dL (13.0-17.5); Lymphocytes # (A) 1.6 k/uL (1.0-4.8); Lymphocytes % (A) 22 %; MCH 29.7 pg (25.0-35.0); MCHC 31.9 g/dL (31.0-37.0); MCV 93.1 fL (80.0-100.0); Mean Platelet Volume 7.5; Monocytes # (A) 0.5 k/uL (0-1.0); Monocytes % (A) 7 %; Neutrophils # (A) 4.9 k/uL (1.3-7.7); Neutrophils % (A) 68 %; Platelet Count 277 k/uL (150-450); RBC 4.63 m/uL (4.30-5.90); RDW 12.9 % (11.5-15.5); WBC 7.2 k/uL (3.8-10.6)
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
[2024-04-08 16:29] LABS: ALT 78 U/L (4-49); AST 60 U/L (17-59); African American GFR (CKD) >90 (>60 ml/min/1.73 sqM); Albumin 3.9 g/dL (3.5-5.0); Alkaline Phosphatase 95 U/L (38-126); Anion Gap 3 mmol/L; Blood Urea Nitrogen 11 mg/dL (9-20); Calcium 9.6 mg/dL (8.4-10.2); Carbon Dioxide 34 mmol/L (22-30); Chloride 103 mmol/L (98-107); Glucose 117 mg/dL (74-99); Magnesium 2.2 mg/dL (1.6-2.3); Non-African American GFR(CKD) >90 (>60 ml/min/1.73 sqM); Potassium 4.5 mmol/L (3.5-5.1); Sodium 140 mmol/L (137-145); Total Bilirubin 0.6 mg/dL (0.2-1.3); Total Protein 6.8 g/dL (6.3-8.2)
== END 2024-04-08 17:37 ==
LOC: EC 14:52
DX: G62.0 Drug-induced polyneuropathy (principal); F17.200 Nicotine dependence, unspecified, uncomplicated
CPT/HCPCS: 36415; 80053; 83735; 85025; 99284